=== PATIENT | female | born 1930 | race Caucasian/White ===

== ENCOUNTER 2018-06-16 12:11 | Emergency (ER) | payer OTHER ==
[~2018-06-16] VITALS: Ht 160 cm; Wt 49.2 kg
[~2018-06-16 12:11] MED LIST: HYDC25 PO; LISI5TAB3 PO; PROP20TA67 PO; PRT/20 PO
[2018-06-16 12:15] VITALS: TEMP 37; Ht 160 cm; Wt 49.2 kg
[2018-06-16] MEDS ORDERED: SODIUM CHLORIDE 0.9% 250ML 250 ML IV STA (12:35)
[2018-06-16] MEDS ORDERED: LORAZEPAM 2 MG/ML 1 ML VIAL IV STA (12:35)
[2018-06-16] MEDS ORDERED: SODIUM CHLORIDE 0.9% 1000ML 1,000 ML IV STA (12:35)
--- NOTE | 2018-06-16 12:43 | EMERGENCY ROOM VISIT NOTE ---
History Report prepared by Daja: Teresa Littlejohn Under the Supervision of: Dr. Krystle Ramirez M.D. First contact with patient: 12:27 Chief Complaint: ABDOMINAL PAIN Stated Complaint: STOMACH PAIN Nursing Triage Summary: Palpitation in mid abd, lightheadedness, "It's like a muscle moving around. It' s been going on for sometime". denies pain. pt reports feeling full after eating small amnts and increase in burping History of Present Illness The patient is a 87 year old female who presents to the Emergency Room with complaints of an intermittent "palpitation" in the middle of her abdomen yesterday. The patient denies any pain in her abdomen but states that this occasional "palpitation" is uncomfortable. The patient states that this has been going on for years but feels like it got worse yesterday. The patient states that she got lightheaded with this "palpitation". The patient denies any vomiting or diarrhea. The patient states that she has no blood in her bowel movements, blood in her urine, or blood from her vagina. The patient does state that she has burning with urination but states that she has vaginal dryness. The patient states that she ate this morning but did not eat last night. She states that she feels full as soon as she eats. The patient states that she had her gallbladder removed years ago. The patient also states that her about five months ago and she has been under a lot of stress recently. Source of History: patient Onset: yesterday Position: abdomen Quality: other ("palpitation" ) Timing: intermittent Associated Symptoms: + urinary symptoms (burning with urination ), No vomiting, No diarrhea Note: additional symptoms: lightheaded Review of Systems See HPI for pertinent positives & negatives. A total of 10 systems reviewed and were otherwise negative. Past Medical & Surgical Medical Problems: (1) History of - hypertension Social History Smoking Status: Never Smoker Alcohol Use: none Drug Use: none Marital Status: Housing Status: lives alone Occupation Status: retired Current/Historical Medications Scheduled Hydrochlorothiazide (Hctz), 25 MG PO DAILY Lisinopril (Lisinopril), 1 TAB PO DAILY Pantoprazole (Protonix), 40 MG PO q am Propranolol (Inderal), 40 MG PO BID Ranitidine Hcl (Zantac), 150 MG PO each evening Allergies Coded Allergies: No Known Allergies (Unverified , 06/16/18) Physical Exam Vital Signs Date Time Temp Pulse Resp B/P (MAP) Pulse Ox O2 Delivery O2 Flow Rate FiO2 06/16/18 16:15 70 20 137/72 98 Room Air 06/16/18 15:04 67 20 140/71 95 Room Air 06/16/18 13:33 57 18 156/75 98 Room Air 06/16/18 12:56 67 19 149/77 99 68 156/70 06/16/18 12:15 37.0 88 18 165/73 96 Room Air Physical Exam Vital signs reviewed. General: Tearful and anxious-appearing 87 year old female, in no significant distress. HEENT: No scleral icterus, PERRLA, neck supple. Atraumatic. Cardiovascular: Regular rate and rhythm, no extra sounds. Pulmonary: Clear to auscultation bilaterally, normal work of breathing. Abdomen: Soft, nontender, nondistended, positive bowel sounds. Musculoskeletal: Atraumatic, no peripheral edema. Neurologic: Patient awake alert and oriented x 3, full strength in all 4 extremities. Cranial nerves 2 through 12 grossly intact. Skin: Warm, dry, no rash Medical Decision & Procedures ER Provider Diagnostic Interpretation: Radiology results as stated below per my review and radiologist interpretation: ABDOMEN AND PELVIS CT WITH IV AND ORAL CONTRAST CT DOSE: 238.09 mGy.cm HISTORY: Acute epigastric abdominal pain epigastric pain TECHNIQUE: Multiaxial CT images of the abdomen and pelvis were performed following the use of intravenous and oral contrast. A dose lowering technique was utilized adhering to the principles of ALARA. COMPARISON STUDY: CT abdomen and pelvis 07/19/2009. FINDINGS: Mild subsegmental right basilar atelectasis. Mildly motion degraded exam without pneumatosis or pneumoperitoneum. Imaged inferior cardiac chambers are mildly enlarged. Gallbladder appears surgically absent. Hypodense 4 mm lesion of the inferior right hepatic lobe suggests probable hepatic cyst. Spleen, pancreas and adrenal glands are unremarkable. Kidneys are within normal limits with 9 mm cyst of the superior pole right kidney. Ureters are unremarkable. Decompressed bladder. Prior hysterectomy. No adnexal mass lesions. Moderate calcification of the aorta without aneurysm. IVC appears unremarkable. The portal vein appears patent. No pathologically enlarged lymph nodes identified. Small sliding-type hiatal hernia with mild wall thickening about the distal esophagus. Incidental note is made of a transient intussusception involving small bowel of the left mid pelvis, image 212 series 3 with no proximal dilation. Small bowel is otherwise within normal limits. No bowel obstruction. Moderate formed stool about the rectum and distal sigmoid. No bowel wall thickening. Terminal ileum is unremarkable. The appendix is not definitively seen, likely surgically absent. No ascites or mesenteric inflammatory changes. Soft tissues are within normal limits. Demineralized appearance of the bones. 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 Multilevel spondylitic spurring and facet arthropathy. IMPRESSION: 1. Small sliding-type hiatal hernia with mild circumferential wall thickening about the distal esophagus. Findings may reflect esophagitis in the appropriate clinical setting. This could be correlated with endoscopy if of further clinical concern. 2. No bowel obstruction or focal bowel wall thickening. 3. Moderate volume of formed stool about the distal sigmoid colon and rectum. 4. Cardiomegaly. 5. Additional findings as above. Electronically signed by: Tyrone Cochran M.D. 06/16/2018 3:27 PM Dictated Date/Time: 06/16/2018 3:19 PM Laboratory Results 06/16/18 12:32 Red Blood Count 4.67, Mean Corpuscular Volume 86.5, Mean Corpuscular Hemoglobin 30.0, Mean Corpuscular Hemoglobin Concent 34.7, Mean Platelet Volume 9.5, Neutrophils (%) (Auto) 58.5, Lymphocytes (%) (Auto) 33.1, Monocytes (%) (Auto) 4.8, Eosinophils (%) (Auto) 3.4, Basophils (%) (Auto) 0.2, Neutrophils # (Auto) 2.95, Lymphocytes # (Auto) 1.67, Monocytes # (Auto) 0.24, Eosinophils # (Auto) 0.17, Basophils # (Auto) 0.01 06/16/18 12:32 Test 06/16/18 12:32 06/16/18 15:10 White Blood Count 5.04 K/uL (4.8-10.8) Red Blood Count 4.67 M/uL (4.2-5.4) Hemoglobin 14.0 g/dL (12.0-16.0) Hematocrit 40.4 % (37-47) Mean Corpuscular Volume 86.5 fL (80-100) Mean Corpuscular Hemoglobin 30.0 pg (25-34) Mean Corpuscular Hemoglobin Concent 34.7 g/dl (32-36) Platelet Count 217 K/uL (130-400) Mean Platelet Volume 9.5 fL (7.4-10.4) Neutrophils (%) (Auto) 58.5 % Lymphocytes (%) (Auto) 33.1 % Monocytes (%) (Auto) 4.8 % Eosinophils (%) (Auto) 3.4 % Basophils (%) (Auto) 0.2 % Neutrophils # (Auto) 2.95 K/uL (1.4-6.5) Lymphocytes # (Auto) 1.67 K/uL (1.2-3.4) Monocytes # (Auto) 0.24 K/uL (0.11-0.59) Eosinophils # (Auto) 0.17 K/uL (0-0.5) Basophils # (Auto) 0.01 K/uL (0-0.2) RDW Standard Deviation 38.2 fL (36.4-46.3) RDW Coefficient of Variation 12.1 % (11.5-14.5) Immature Granulocyte % (Auto) 0.0 % Immature Granulocyte # (Auto) 0.00 K/uL (0.00-0.02) Anion Gap 11.0 mmol/L (3-11) Est Creatinine Clear Calc Drug Dose 43.8 ml/min Estimated GFR () 87.0 Estimated GFR (Non- 75.1 BUN/Creatinine Ratio 20.3 (10-20) Calcium Level 8.9 mg/dl (8.5-10.1) Magnesium Level 2.0 mg/dl (1.8-2.4) Total Bilirubin 1.0 mg/dl (0.2-1) Direct Bilirubin 0.2 mg/dl (0-0.2) Aspartate Amino Transf (AST/SGOT) 17 U/L (15-37) Alanine Aminotransferase (ALT/SGPT) 23 U/L (12-78) Alkaline Phosphatase 109 U/L (45-117) Total Protein 7.5 gm/dl (6.4-8.2) Albumin 3.7 gm/dl (3.4-5.0) Lipase 121 U/L (73-393) Urine Color YELLOW Urine Appearance CLEAR (CLEAR) Urine pH 5.5 (4.5-7.5) Urine Specific [place] 1.011 (1.000-1.030) Urine Protein NEG (NEG) Urine Glucose (UA) NEG (NEG) Urine Ketones NEG (NEG) Urine Occult Blood NEG (NEG) Urine Nitrite NEG (NEG) Urine Bilirubin NEG (NEG) Urine Urobilinogen NEG (NEG) Urine Leukocyte Esterase NEG (NEG) Laboratory results per my review. Medications Administered Medications (Trade) Dose Ordered Sig/Ricardo Route Start Time Stop Time Status Last Admin Dose Admin Sodium Chloride 250 ml @ 999 mls/hr Q16M STAT IV 06/16/18 12:35 06/16/18 12:50 DC 06/16/18 12:54 999 MLS/HR Sodium Chloride 1,000 ml @ 125 mls/hr Q8H STAT IV 06/16/18 12:35 06/16/18 18:02 DC 06/16/18 12:54 125 MLS/HR Lorazepam (Ativan Inj) 0.5 mg NOW STAT IV 06/16/18 12:35 06/16/18 12:42 DC 06/16/18 12:54 0.5 MG Pantoprazole Sodium (Protonix Tab) 40 mg NOW STAT PO 06/16/18 16:42 06/16/18 16:43 DC 06/16/18 16:50 40 MG Ranitidine HCl (zANTac TAB) 150 mg NOW ONCE PO 06/16/18 16:45 06/16/18 16:46 DC 06/16/18 16:50 150 MG ECG Per My Interpretation Indication: abdominal pain Rate (beats per minute): 76 Rhythm: normal sinus Findings: no acute ischemic change, left axis deviation, other (Premature supraventricular complexes, previous inferior and anterior infarct) ED Course 1230: Past medical records reviewed. The patient was evaluated in room C8. A complete history and physical examination was performed. 1235: Ordered Lorazepam 0.5 mg IV, Sodium Chloride 1000 ml @ 125 mls/hr IV, and Sodium Chloride 250 ml @ 999 mls/hr IV. 1642: Ordered Protonix Tab 40 mg PO. 1645: Ordered Zantac Tab 150 mg PO. 1650: Upon reevaluation, the patient appeared to have improvement of her symptoms. I discussed findings with her. She verbalized agreement of the treatment plan. She was discharged home. Medical Decision Differential diagnosis: Etiologies such as appendicitis, diverticulitis, PUD, biliary pathology, UTI, pancreatitis, obstruction, mesenteric ischemia, aortic pathology, infections, inflammatory bowel disease, renal colic, as well as others were entertained. This patient was evaluated and appeared to be in no significant distress. IV access was obtained and laboratory work was drawn. The patient was hydrated with normal saline solution. Patient's EKG reveals left axis deviation, no evidence of acute ischemia. Patient's laboratory work is fairly unrevealing. CT scan abdomen pelvis was performed and is significant for a small hiatal hernia and distal esophageal thickening. Patient was placed on p.o. Protonix and Zantac as needed. Case management met with the patient regarding her multiple social stressors given her recent spousal loss and difficulties with her son who lives in [place]. She is felt to have the resources that are needed particularly to supportive friend/neighbor's. Patient was advised to maintain a bland diet and drink plenty of clear fluids. She will follow-up with her PCP this week for reevaluation and return to the ED for worsening of symptoms or any medical concerns. Medication Reconcilliation Current Medication List: was personally reviewed by me Blood Pressure Screening Patient's blood pressure: Normal blood pressure Impression Primary Impression: Esophagitis with gastritis Additional Impression: Hypokalemia Scribe Attestation The scribe's documentation has been prepared under my direction and personally reviewed by me in its entirety. I confirm that the note above accurately reflects all work, treatment, procedures, and medical decision making performed by me. Departure Information Dispostion Home / Self-Care Prescriptions Pantoprazole (Protonix) 40 Mg Tab 40 MG PO q am, #30 TAB Prov: Krystle Ramirez M.D. 06/16/18 Ranitidine Hcl (ZANTAC) 150 Mg Tab 150 MG PO each evening, #30 TAB Prov: Krystle Ramirez M.D. 06/16/18 Referrals No Doctor, Assigned (PCP) Forms HOME CARE DOCUMENTATION FORM, IMPORTANT VISIT INFORMATION Patient Instructions [facility] Additional Instructions Diagnosis: Gastritis/esophagitis, hypokalemia Protonix 40 mg once daily Zantac 150 mg each evening. Eat a higher potassium diet, at least one banana daily. Follow-up with your primary care physician as scheduled in mid June or sooner for any medical issues. Please discuss your issues with anxiety/ depression and grief. Return to the emergency department for worsening of symptoms or any medical concerns. Problem Qualifiers
[2018-06-16] MEDS ORDERED: OPTIRAY 320 IV PRN (12:45)
[2018-06-16 12:53] LABS: BASO % 0.2 %; BASO ABS # 0.01 K/uL (0-0.2); EOS % 3.4 %; EOS ABS # 0.17 K/uL (0-0.5); HEMATOCRIT 40.4 % (37-47); LYMPH % 33.1 %; LYMPH ABS # 1.67 K/uL (1.2-3.4); MEAN CELL VOLUME 86.5 fL (80-100); MEAN CORPUSCULAR HGB CONC 34.7 g/dl (32-36); MEAN PLATELET VOLUME 9.5 fL (7.4-10.4); MONO % 4.8 %; MONO ABS # 0.24 K/uL (0.11-0.59); NEUT % 58.5 %; NEUT ABS # 2.95 K/uL (1.4-6.5); PLATELET COUNT 217 K/uL (130-400); RED CELL DISTRIBUTION WIDTH CV 12.1 % (11.5-14.5); RED CELL DISTRIBUTION WIDTH SD 38.2 fL (36.4-46.3); WHITE BLOOD COUNT 5.04 K/uL (4.8-10.8)
[2018-06-16 13:11] LABS: ALBUMIN 3.7 gm/dl (3.4-5.0); CALCIUM 8.9 mg/dl (8.5-10.1); CREATININE 0.73 mg/dl (0.60-1.20); POTASSIUM 3.2 mmol/L (3.5-5.1); TOTAL PROTEIN 7.5 gm/dl (6.4-8.2)
[2018-06-16] MEDS ORDERED: HYDR25TA4 PO (13:16)
[2018-06-16] MEDS ORDERED: LISI-730 PO (13:16)
--- NOTE | 2018-06-16 15:28 | DIAGNOSTIC IMAGING REPORT ---
ABDOMEN AND PELVIS CT WITH IV AND ORAL CONTRAST CT DOSE: 238.09 mGy.cm HISTORY: Acute epigastric abdominal pain epigastric pain TECHNIQUE: Multiaxial CT images of the abdomen and pelvis were performed following the use of intravenous and oral contrast. A dose lowering technique was utilized adhering to the principles of ALARA. COMPARISON STUDY: CT abdomen and pelvis 07/19/2009. FINDINGS: Mild subsegmental right basilar atelectasis. Mildly motion degraded exam without pneumatosis or pneumoperitoneum. Imaged inferior cardiac chambers are mildly enlarged. Gallbladder appears surgically absent. Hypodense 4 mm lesion of the inferior right hepatic lobe suggests probable hepatic cyst. Spleen, pancreas and adrenal glands are unremarkable. Kidneys are within normal limits with 9 mm cyst of the superior pole right kidney. Ureters are unremarkable. Decompressed bladder. Prior hysterectomy. No adnexal mass lesions. Moderate calcification of the aorta without aneurysm. IVC appears unremarkable. The portal vein appears patent. No pathologically enlarged lymph nodes identified. Small sliding-type hiatal hernia with mild wall thickening about the distal esophagus. Incidental note is made of a transient intussusception involving small bowel of the left mid pelvis, image 212 series 3 with no proximal dilation. Small bowel is otherwise within normal limits. No bowel obstruction. Moderate formed stool about the rectum and distal sigmoid. No bowel wall thickening. Terminal ileum is unremarkable. The appendix is not definitively seen, likely surgically absent. No ascites or mesenteric inflammatory changes. Soft tissues are within normal limits. Demineralized appearance of the bones. 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 Multilevel spondylitic spurring and facet arthropathy. IMPRESSION: 1. Small sliding-type hiatal hernia with mild circumferential wall thickening about the distal esophagus. Findings may reflect esophagitis in the appropriate clinical setting. This could be correlated with endoscopy if of further clinical concern. 2. No bowel obstruction or focal bowel wall thickening. 3. Moderate volume of formed stool about the distal sigmoid colon and rectum. 4. Cardiomegaly. 5. Additional findings as above. Electronically signed by: Tyrone Cochran M.D. 06/16/2018 3:27 PM Dictated Date/Time: 06/16/2018 3:19 PM
[2018-06-16 16:15] VITALS: BP 137/72; PULSE 70; O2SAT 98
[2018-06-16] MEDS ORDERED: PANT40TA PO (16:22)
[2018-06-16] MEDS ORDERED: RANI150T3 PO (16:22)
[2018-06-16] MEDS ORDERED: PANTOprazole SOD 40 MG TAB PO STA (16:42)
[2018-06-16] MEDS ORDERED: RANITIDINE HCL 150 MG TAB PO ONE (16:45)
== END 2018-06-16 17:05 | disposition home or self-care (01) ==
LOC: C.EDB 12:14 → C.EDC 17:05
DX: K20.9 Esophagitis, unspecified (principal); K29.70 Gastritis, unspecified, without bleeding; E87.6 Hypokalemia; I10 Essential (primary) hypertension; Z79.899 Other long term (current) drug therapy

== ENCOUNTER 2020-02-02 13:03 | Inpatient (IN) ==
[2020-02-02] MEDS ORDERED: STAT IV Infusion **Titration per Protocol STA (13:39)
[2020-02-02] MEDS ORDERED: Heparin IV Low Dose *NO* Bolus ONE (13:39)
[2020-02-02] MEDS ORDERED: dilTIAZem HCl 5 MG/ML 5 ML VIAL IV STA (13:39)
[2020-02-02] MEDS ORDERED: dilTIAZem HCL 125 MG in DEXTROSE 5% 100 ML IV SCH (13:45)
--- NOTE | 2020-02-02 13:45 | Emergency Department Note ---
History of Present Illness General Chief complaint: Cardiac Assessment Stated complaint: CHF,ATRIAL FIB Time Seen by Provider: 02/02/20 13:17 Source: patient and friends Mode of arrival: ambulatory Limitations: no limitations History of Present Illness Provider complaint: Palpitations, shortness of breath Onset (ago): day(s) 10 Location: chest and abdomen Radiation: non-radiation Maximum Pain Intensity: 0 Current Pain Intensity: 0 Exacerbated By: + movement Associated symptoms: + loss of appetite, + shortness of breath, + weakness and + other; no chest pain, no headaches, no nausea/vomiting and no syncope This is an 89-year-old female with no significant prior cardiac history who presents after 10 to 14 days of intermittent palpitations, worsening shortness of breath, and lower extremity edema. Patient saw her family doctor due to her symptoms who performed an evaluation in the office and referred the patient to the emergency room. There is a friend at bedside who helps to care for the patient who states she has never had any dysrhythmia or palpitations prior. Patient does not routinely follow with cardiology. Patient denies any recent illness or change in medications. No travel or known sick contacts. Patient states she initially noticed palpitations with exertion 2 weeks ago, then began to notice they were happening more frequently and were lasting longer and she was having accompanying shortness of breath. The friend then noticed in the last several days she has developed worsening lower extremity edema, now up to the level of her knee. Friend also feels she has increased abdominal distention also. Patient denies headache, chest pain, abdominal pain. States she does feel mild abdominal distention which she attributed to gas. Patient stated her stools are mildly yellow, denies black or bloody stools. States no dysuria, urgency or frequency, however states her urine appears slightly darker compared to normal. Friend also relays that patient has had some recent thyroid dysfunction that was seen during her last checkup with routine blood work approximately 8 months ago. Patient had also been found to have a thyroid nodule however she canceled the appointment for a needle aspiration and biopsy. Pt has an appointment with endocrinology in February. Additional fax records from the patient's office visit sent by Dr. Lowe. Pt seen during a time of high acuity and national emergency pandemic while wearing PPE. Home Medications Home Medications Medication Instructions Recorded Confirmed Type cholecalciferol (vitamin D3) 125 5,000 units PO DAILY 12/28/19 02/02/20 History mcg (5,000 unit) capsule lisinopril 5 mg tablet 5 mg PO DAILY 12/28/19 02/02/20 History propranolol 40 mg tablet 40 mg PO BID 12/28/19 02/02/20 History famotidine 20 mg PO HS 02/02/20 02/02/20 History multivitamin 1 tab PO DAILY 02/02/20 02/02/20 History pantoprazole 40 mg PO DAILY 02/02/20 02/02/20 History Allergies Allergy/AdvReac Type Severity Reaction Status Date / Time No Known Allergies Allergy Unverified 02/02/20 13:25 Past Med/Surg History Medical History Allergic rhinitis Conductive hearing loss Family history non-contributory GERD (gastroesophageal reflux disease) Hemorrhoids HTN (hypertension) Irritable bowel Post-menopausal atrophic vaginitis Skin cancer Thyroid dysfunction Surgical History H/O: hysterectomy total with BSO History of cataract surgery History of cystoscopy Hx of cholecystectomy Family History Other No significant family history Social History Preferred Language: Danish Communication Ability: Effective Hearing Ability: Hard of Hearing Beliefs That Will Affect Care: Restorationist Restorationist Beliefs: CHRISTIANITY marital status: / Current Living Situation: Alone Other Information That Helps Us Care for You: No Feels Safe at Home: Yes Safety Concerns: Feels Safe At This Time Smoking Status: Never smoker Hx Alcohol Use: Yes Alcohol type: wine Hx Substance Use: No Review of Systems See HPI for pertinent positives & negatives. and A total of 10 systems reviewed and were otherwise negative Physical Exam Vital Signs Vital Signs - 24 hr 02/02/20 13:10 Temperature 36.8 C Temperature Source Oral Pulse Rate 126 H Respiratory Rate 20 Blood Pressure 119/74 Blood Pressure Mean 89 Pulse Oximetry 96 Oxygen Delivery Method Room Air Sepsis Recent Fever Within 48 Hours No Sepsis New/Unexplained Change in Mental Status No Sepsis Action Taken by Nursing No Action Required GENERAL: alert, well appearing, well nourished, no distress, non-toxic EYE EXAM: normal conjunctiva, PERRLA and EOM's grossly intact, no proptosis OROPHARYNX: no exudate, no erythema, lips, buccal mucosa, and tongue normal and mucous membranes are moist, poor dentition NECK: supple, no nuchal rigidity, no adenopathy, non-tender, no jvd LUNGS: Clear but decreased to auscultation. Normal chest wall mechanics, no w/r/r HEART: no murmurs, S1 normal and S2 normal, heart rate fast and irregular, and a rapid atrial fibrillation on telemetry ABDOMEN: abdomen soft, non-tender, normo-active bowel sounds, no masses, no rebound or guarding. BACK: Back is symmetrical on inspection and there is no deformity, no midline tenderness, no CVA tenderness. SKIN: no rashes and no bruising, no petechiae UPPER EXTREMITIES: upper extremities are grossly normal. FROM, nml pulses b/l. LOWER EXTREMITIES: 2+ pitting edema up to the knees bilaterally. FROM, nml pulses b/l. NEURO EXAM: Normal sensorium, cranial nerves II-XII grossly intact, normal speech, no gross weakness of arms, no gross weakness of legs. Gross sensation intact. Course Course 1425: After Cardizem bolus of 10 mg IV, patient's heart rate came down to the 80s and 90s per nursing. Blood pressure did drop slightly however remained stable. Due to patient's likely sensitivity and advanced age with this, we will start her Cardizem drip at 2.5 instead of 5. 1455: Patient's Cardizem drip up to 5 as her rate has now been persistently 110- 120. 1540: Patient states she is feeling improved. Heart rate now 112. Updated on all results. 1549: [facility] Administered Medications Famotidine (Pepcid) 20 mg PO HS KAVIN Stop: 03/03/20 20:59 Last Admin: 02/02/20 20:10 Dose: 20 mg Documented by: [id number] Heparin Sodium/Dextrose (Heparin Sodium/Dextrose) 25,000 units in 500 mls @ 15 mls/hr IV .Q24H KAVIN; Protocol Stop: 03/03/20 13:44 Last Titration: 02/03/20 06:57 Dose: 750 units/hr, 15 mls/hr Documented by: [id number] Cosigned by: [id number] Titration: 02/02/20 20:50 Dose: 750 units/hr, 15 mls/hr Documented by: [id number] Cosigned by: [id number] Titration: 02/02/20 18:54 Dose: 650 units/hr, 13 mls/hr Documented by: [id number] Cosigned by: [id number] Admin: 02/02/20 14:16 Dose: 650 units/hr, 13 mls/hr Documented by: [id number] Cosigned by: [id number] Furosemide 20 mg/ Syringe 2 mls @ 4 mls/min IV BID@0900,1700 [facility] Stop: 03/03/20 20:59 Last Admin: 02/03/20 16:46 Dose: 4 mls/min Documented by: [id number] Admin: 02/03/20 07:56 Dose: 4 mls/min Documented by: [id number] Admin: 02/02/20 20:10 Dose: 4 mls/min Documented by: [id number] Diltiazem HCl 125 mg/ Dextrose 125 mls @ 5 mls/hr IV .Q24H [facility]; Protocol Stop: 03/04/20 09:14 Last Admin: 02/03/20 10:02 Dose: 5 mg/hr, 5 mls/hr Documented by: [id number] Cosigned by: [id number] Methimazole (Tapazole) 15 mg PO BID [facility] Stop: 03/03/20 20:59 Last Admin: 02/03/20 07:56 Dose: 15 mg Documented by: [id number] Admin: 02/02/20 20:10 Dose: 15 mg Documented by: [id number] Metoprolol Tartrate (Lopressor) 5 mg IV Q6 PRN PRN Reason: Tachycardia Stop: 03/03/20 18:54 Last Admin: 02/03/20 09:37 Dose: 5 mg Documented by: [id number] Metoprolol Tartrate (Lopressor) 50 mg PO TID [facility] Stop: 03/04/20 13:59 Last Admin: 02/03/20 14:40 Dose: 50 mg Documented by: [id number] Multivitamins (Multivitamin Tab) 1 tab PO DAILY [facility] Stop: 03/04/20 08:59 Last Admin: 02/03/20 07:57 Dose: 1 tab Documented by: [id number] Pantoprazole Sodium (Protonix) 40 mg PO DAILY KAVIN Stop: 03/04/20 08:59 Last Admin: 02/03/20 07:57 Dose: 40 mg Documented by: [id number] Potassium Chloride (Klor-Con M20) 40 meq PO QAM KAVIN Stop: 03/04/20 10:59 Last Admin: 02/03/20 11:03 Dose: 40 meq Documented by: [id number] Vitamin D (Vitamin D3) 1,000 units PO DAILY KAVIN Stop: 03/04/20 08:59 Last Admin: 02/03/20 07:57 Dose: 1,000 units Documented by: [id number] Discontinued Medications Diltiazem HCl (Cardizem) 10 mg IV NOW STA Stop: 02/02/20 13:40 Last Admin: 02/02/20 14:17 Dose: 10 mg Documented by: [id number] Cosigned by: [id number] Furosemide (Lasix) 20 mg IV NOW STA Stop: 02/02/20 15:41 Last Admin: 02/02/20 17:03 Dose: 20 mg Documented by: [id number] Heparin Sodium/Dextrose () 1 ea N/A ONE ONE; Protocol Stop: 02/02/20 13:40 Last Admin: 02/02/20 14:39 Dose: Not Given Documented by: [id number] Diltiazem HCl 125 mg/ Dextrose 125 mls @ 5 mls/hr IV .Q24H KAVIN; Protocol Stop: 03/03/20 13:44 Last Titration: 02/02/20 19:48 Dose: 0 mg/hr, 0 mls/hr Documented by: [id number] Cosigned by: [id number] Titration: 02/02/20 18:54 Dose: 7.5 mg/hr, 7.5 mls/hr Documented by: [id number] Cosigned by: [id number] Titration: 02/02/20 15:28 Dose: 7.5 mg/hr, 7.5 mls/hr Documented by: [id number] Cosigned by: [id number] Titration: 02/02/20 14:47 Dose: 5 mg/hr, 5 mls/hr Documented by: [id number] Cosigned by: [id number] Admin: 02/02/20 14:15 Dose: 2.5 mg/hr, 2.5 mls/hr Documented by: [id number] Cosigned by: [id number] Heparin Sodium (Porcine) 4,000 (units/ Syringe) 4 mls @ 10 mls/min IV TODAY@2100 ONE Stop: 02/02/20 21:01 Last Admin: 02/02/20 20:50 Dose: 10 mls/min Documented by: [id number] Cosigned by: [id number] Potassium Chloride (K Robson / Wtr) 10 meq in 100 mls @ 100 mls/hr IV Q1H KAVIN Stop: 02/03/20 10:29 Last Infusion: 02/03/20 09:05 Dose: 0 mls/hr Documented by: [id number] Admin: 02/03/20 09:04 Dose: Not Given Documented by: [id number] Admin: 02/03/20 08:46 Dose: 100 mls/hr Documented by: [id number] Magnesium Sulfate/Dextrose (Magnesium Sulfate / D5w) 1 gm in 100 mls @ 100 mls/hr IV ONE ONE Stop: 02/03/20 10:04 Last Infusion: 02/03/20 10:50 Dose: 0 mls/hr Documented by: [id number] Admin: 02/03/20 09:49 Dose: 100 mls/hr Documented by: [id number] Ioversol (Optiray 320 125ml) 119 ml IV ONCE PRN PRN Reason: Interaction Checking Stop: 02/06/20 15:02 Last Admin: 02/02/20 15:04 Dose: 119 ml Documented by: [id number] Metoprolol Tartrate (Lopressor) 50 mg PO NOW STA Stop: 02/02/20 16:30 Last Admin: 02/02/20 17:32 Dose: 50 mg Documented by: [id number] Metoprolol Tartrate (Lopressor) 50 mg PO BID KAVIN Stop: 02/09/20 08:59 Last Admin: 02/03/20 07:57 Dose: 50 mg Documented by: [id number] Miscellaneous () 1 ea N/A NOW STA Stop: 02/02/20 13:40 Last Admin: 02/02/20 14:39 Dose: Not Given Documented by: [id number] Potassium Chloride (Klor-Con M20) 40 meq PO NOW STA Stop: 02/03/20 07:36 Last Admin: 02/03/20 07:55 Dose: 40 meq Documented by: [id number] Potassium Chloride (Noemi Ciel Elix) 40 meq PO NOW STA Stop: 02/03/20 10:29 Last Admin: 02/03/20 11:03 Dose: 40 meq Documented by: [id number] Propranolol HCl (Inderal) 40 mg PO BID KAVIN Stop: 03/03/20 20:59 Last Admin: 02/03/20 07:56 Dose: 40 mg Documented by: [id number] Admin: 02/02/20 20:11 Dose: 40 mg Documented by: [id number] Critical Care Time Critical Care Time: Yes Total Critical Care Time: 42 Critical care of 42 min performed to assess and manage high likelihood of life- threatening dysrhythmia, involving labs/imaging and treatment performed with assessment to evaluation atrial fibrillation with RVR and CHF diagnosis with frequent reassessment. This time includes bedside time, treatment discussions with patient/family/consultants, documentation time and excludes procedure time. Medical Decision Making Differential Diagnosis Differential diagnosis includes etiologies such as premature contractions, electrolyte abnormality, cardiac dysrhythmia, thyroid dysfunction, pulmonary embolism, infection, gastrointestinal, pneumonia, bronchitis, COPD/Asthma exacerbation, pneumothorax, pulmonary embolism, congestive heart failure, acute coronary syndrome Medical Records Attestation: I reviewed the patient's medical records. Home Medications Current Medication List: was personally reviewed by me Laboratory Data Attestation: I reviewed the patient's lab results. Result diagrams: 02/03/20 02:57 02/03/20 02:57 Lab Results 02/02/20 02/02/20 02/02/20 Range/Units 13:25 13:25 13:25 WBC 8.06 (4.8-10.8) K/uL RBC 4.33 (4.2-5.4) M/uL Hgb 12.9 (12.0-16.0) g/dL Hct 39.0 (37-47) % MCV 90.1 (80-100) fL MCH 29.8 (25-34) pg MCHC 33.1 (32-36) g/dL RDW Std Deviation 43.5 (36.4-46.3) fL RDW Coeff of Angel 13.2 (11.5-14.5) % Plt Count 198 (130-400) K/uL MPV 10.0 (7.4-10.4) fL Immature Gran % (Auto) 0.2 % Neut % (Auto) 72.8 % Lymph % (Auto) 19.2 % Churchill % (Auto) 6.5 % Eos % (Auto) 1.2 % Baso % (Auto) 0.1 % Immature Gran # (Auto) 0.02 (0.00-0.02) K/uL Neut # (Auto) 5.86 (1.4-6.5) K/uL Lymph # (Auto) 1.55 (1.2-3.4) K/uL Churchill # (Auto) 0.52 (0.11-0.59) K/uL Eos # (Auto) 0.10 (0-0.5) K/uL Baso # (Auto) 0.01 (0-0.2) K/uL D-Dimer 710 H* (0-500) ug/L FEU Sodium 140 (136-145) mmol/L Potassium 4.1 (3.5-5.1) mmol/L Chloride 107 (98-107) mmol/L Carbon Dioxide 28 (21-32) mmol/L Anion Gap 5.0 (3-11) BUN 12 (7-18) mg/dl Creatinine 0.74 (0.6-1.2) mg/dl Est Cr Clr Drug Dosing 45.7 ml/min Est GFR ( Amer) 84.4 Est GFR (Non-Af Amer) 72.8 BUN/Creatinine Ratio 16.3 (10-20) Glucose 139 H (70-99) mg/dl Calcium 9.0 (8.5-10.1) mg/dl Magnesium 1.9 (1.8-2.4) mg/dl Total Bilirubin 1.1 H (0.2-1) mg/dl AST 75 H (15-37) U/L ALT 122 H (12-78) U/L Alkaline Phosphatase 113 (45-117) U/L Troponin I < 0.015 (0-0.045) ng/ml NT-Pro-B Natriuret Pep 3351 H (0-1800) pg/ml Total Protein 6.8 (6.4-8.2) gm/dl Albumin 3.4 (3.4-5.0) gm/dl Globulin 3.4 (2.5-4.0) gm/dl Albumin/Globulin Ratio 1.0 (0.9-2) Lipase 129 (73-393) U/L TSH < 0.005 L (0.300-4.500) uIu/ml Free T4 2.69 H (0.8-1.6) ng/dl Imaging Data Radiologist's Impression: SINGLE VIEW CHEST CLINICAL HISTORY: Dyspnea. Atrial fibrillation. FINDINGS: An AP, portable, upright chest radiograph is correlated with chest CT dated 07/19/2019. The heart is mildly enlarged. The pulmonary vasculature is noncongested. Chronic interstitial thickening is similar to previous. There are trace pleural effusions with patchy bibasilar airspace consolidation. No pneumothorax is seen. The skeletal structures are osteopenic. The bony thorax is grossly intact. IMPRESSION: 1. Cardiomegaly without radiographic evidence of congestive failure. 2. There are trace pleural effusions with patchy bibasilar airspace opacities. This could represent scarring/atelectasis versus an infectious/inflammatory pneumonitis. Clinical correlation will be required and radiographic follow-up to resolution is recommended. ACT 112: Negative or not required by law. Electronically signed by: Merritt Ladd M.D. 02/02/2020 1:[address] ANGIOGRAM OF THE CHEST CLINICAL HISTORY: Dyspnea. Lower extremity edema. COMPARISON STUDY: Chest x-ray dated 02/02/2020. Chest CT dated 07/19/2009. TECHNIQUE: Following the IV administration of 119 cc of Optiray 320, CT angiogram of the chest was performed from the upper abdomen to the thoracic inlet utilizing the pulmonary embolus protocol. Images are reviewed in the axial, sagittal, and coronal planes. 3-D MIPS images are created and assessed. IV contrast was administered without complication. A dose lowering technique was utilized adhering to the principles of ALARA. CT DOSE: 269.93 mGy.cm FINDINGS: Thyroid: Findings are consistent with multinodular goiter. Coarse calcifications are noted in the left lobe. Thoracic aorta: There is aneurysmal dilatation of the ascending thoracic aorta which measures up to 4.3 cm. The remainder of the thoracic aorta is normal in caliber, and the arch demonstrates standard 3-vessel anatomy. The thoracic aorta is not well opacified. Pulmonary vasculature: The pulmonary trunk is dilated measuring up to 3.2 cm in diameter. This suggests pulmonary artery hypertension. There are no filling defects identified in main, lobar, or segmental pulmonary branches to suggest pulmonary embolus. Heart: The heart is enlarged and without pericardial effusion. Lungs and pleural spaces: There are small to moderate pleural effusions with bibasilar atelectasis. No airspace consolidation is seen typical for pneumonia. There is diffuse intralobular septal thickening as well as peribronchial thickening in the lower lobes. The trachea and central airways are clear. A calcified granuloma is noted in the right upper lobe. 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 Mediastinum: There is no mediastinal lymphadenopathy. Radha: Clear. Axillae: There is no axillary lymphadenopathy. Upper abdomen: Reflux of contrast into the IVC and hepatic veins suggests cardiac dysfunction. Partially visualized upper abdominal viscera is within normal limits. Skeletal structures: The skeletal structures are osteopenic. Mild degenerative change is noted in the shoulders and thoracic spine. No lytic or blastic bony lesions are seen. IMPRESSION: 1. There is no evidence of pulmonary embolus in the main, lobar, or segmental pulmonary arteries. 2. Cardiomegaly with evidence of congestive failure. 3. Small to moderate pleural effusions with associated atelectasis. 4. 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 5. Additional findings as above. ACT 112: Negative or not required by law. Electronically signed by: Merritt Ladd M.D. 02/02/2020 3:33 PM MDM Narrative Pt presenting from her PCP's office with finding of new onset atrial fibrillation with RVR and exam findings suggestive of CHF. Given symptoms have been going on for 10-14 days, pt not a candidate for electrical cardioversion in the ER. Given other risk factors for cva, and need for additional evaluation of her new dysrhythmia and apparent thyroid dysfunction, I discussed additional inpatient evaluation/mgmt with the patient and she was in agreement. Pt with improvement on cardizem which was carefully titrated and started on heparin drip for anticoagulation. No evidence of infection. Likely dysrhythmia pushed her into chf. I do not suspect thyroid storm. Impression & Plan Atrial fibrillation with RVR, Thyroid dysfunction, CHF (congestive heart failure), Pleural effusion Discharge Plan Visit Data *Final* Discharge Date/Time: 02/02/20 17:40 Chief Complaint: Cardiac Assessment Stated Complaint: CHF,ATRIAL FIB ED Provider: Johanne Duran Discharge Problem: Atrial fibrillation with RVR, Thyroid dysfunction, CHF (congestive heart failure), Pleural effusion Patient Disposition: Admitted As Inpatient Discharge Instructions Interventions: ED Discharge Assessment Last Done: 02/02/20 17:40 Discharge Problem: CHF (congestive heart failure) Qualifiers: Heart failure type: unspecified Heart failure chronicity: acute Qualified Code(s): I50.9 - Heart failure, unspecified
[2020-02-02 13:55] LABS: Basophils # (auto) 0.01 K/uL (0-0.2); Basophils % (auto) 0.1 %; Eosinophils % (auto) 1.2 %; Hemoglobin 12.9 g/dL (12.0-16.0); Immature Granulocytes # (auto) 0.02 K/uL (0.00-0.02); Immature Granulocytes % (auto) 0.2 %; Lymphocytes # (auto) 1.55 K/uL (1.2-3.4); Lymphocytes % (auto) 19.2 %; Mean Corpuscular Hemoglobin 29.8 pg (25-34); Mean Corpuscular Hgb Conc 33.1 g/dL (32-36); Mean Corpuscular Volume 90.1 fL (80-100); Monocytes # (auto) 0.52 K/uL (0.11-0.59); Monocytes % (auto) 6.5 %; Neutrophils # (auto) 5.86 K/uL (1.4-6.5); Neutrophils % (auto) 72.8 %; Platelet Count 198 K/uL (130-400); RDW Coefficient of Variation 13.2 % (11.5-14.5); RDW Standard Deviation 43.5 fL (36.4-46.3); Red Blood Count 4.33 M/uL (4.2-5.4); White Blood Count 8.06 K/uL (4.8-10.8)
--- NOTE | 2020-02-02 14:01 | XRay Report ---
SINGLE VIEW CHEST CLINICAL HISTORY: Dyspnea. Atrial fibrillation. FINDINGS: An AP, portable, upright chest radiograph is correlated with chest CT dated 07/19/2019. The heart is mildly enlarged. The pulmonary vasculature is noncongested. Chronic interstitial thickening is similar to previous. There are trace pleural effusions with patchy bibasilar airspace consolidatio n. No pneumothorax is seen. The skeletal structures are osteopenic. The bony thorax is grossly intact . IMPRESSION: 1. Cardiomegaly without radiographic evidence of congestive failure. 2. There are trace pleural effusions with patchy bibasilar airspace opacities. This could represent s carring/atelectasis versus an infectious/inflammatory pneumonitis. Clinical correlation will be requi red and radiographic follow-up to resolution is recommended. ACT 112: Negative or not required by law. Electronically signed by: Merritt Ladd M.D. 02/02/2020 1:59 PM
--- NOTE | 2020-02-02 14:06 | Electrocardiogram Report ---
Test Reason : Blood Pressure : / mmHG Vent. Rate : 146 BPM Atrial Rate : 131 BPM P-R Int : 000 ms QRS Dur : 096 ms QT Int : 324 ms P-R-T Axes : 000 -37 092 degrees QTc Int : 504 ms Poor data quality, interpretation may be adversely affected Atrial fibrillation with rapid ventricular response Left axis deviation Cannot rule out Anterior infarct (cited on or before 16-JUN-2018) Nonspecific ST and T wave abnormality Abnormal ECG When compared with ECG of 16-JUN-2018 12:25, Atrial fibrillation has replaced Sinus rhythm HR has increased by 70 bpm Confirmed by Carlos Wilks ([id number]) on 02/02/2020 2:06:06 PM Referred By: Confirmed By:Carlos Wilks
[2020-02-02 14:09] LABS: Alanine Aminotransferase 122 U/L (12-78); Albumin Level 3.4 gm/dl (3.4-5.0); Aspartate Aminotransferase 75 U/L (15-37); BUN Creatinine Ratio 16.3 (10-20); Blood Urea Nitrogen 12 mg/dl (7-18); Carbon Dioxide 28 mmol/L (21-32); Chloride 107 mmol/L (98-107); Creatinine Clr Calc Pharmacy 45.7 ml/min; D Dimer 710 ug/L FEU (0-500); Est GFR (African American) 84.4; Est GFR (Non-African American) 72.8; Glucose 139 mg/dl (70-99); Lipase 129 U/L (73-393); Magnesium 1.9 mg/dl (1.8-2.4); Potassium 4.1 mmol/L (3.5-5.1); Sodium 140 mmol/L (136-145)
[2020-02-02] MEDS: HEPARIN SODIUM/DEXTROSE 25,000 UNITS/500 ML BAG IV SCH (14:16)
[2020-02-02 14:20] LABS: Alkaline Phosphatase 113 U/L (45-117); Bilirubin,Total 1.1 mg/dl (0.2-1); Globulin 3.4 gm/dl (2.5-4.0); NT Pro B Type Natriuretic Pept 3351 pg/ml (0-1800); Thyroid Stimulating Hormone < 0.005 uIu/ml (0.300-4.500); Total Protein 6.8 gm/dl (6.4-8.2); Troponin I < 0.015 ng/ml (0-0.045)
[2020-02-02 14:33] LABS: T4 Free Thyroxine 2.69 ng/dl (0.8-1.6)
[2020-02-02] MEDS ORDERED: OPTIRAY 320 125ml IV PRN (15:03)
--- NOTE | 2020-02-02 15:35 | CT Scan Report ---
CT ANGIOGRAM OF THE CHEST CLINICAL HISTORY: Dyspnea. Lower extremity edema. COMPARISON STUDY: Chest x-ray dated 02/02/2020. Chest CT dated 07/19/2009. TECHNIQUE: Following the IV administration of 119 cc of Optiray 320, CT angiogram of the chest was pe rformed from the upper abdomen to the thoracic inlet utilizing the pulmonary embolus protocol. Images are reviewed in the axial, sagittal, and coronal planes. 3-D MIPS images are created and assessed. I V contrast was administered without complication. A dose lowering technique was utilized adhering to the principles of ALARA. CT DOSE: 269.93 mGy.cm FINDINGS: Thyroid: Findings are consistent with multinodular goiter. Coarse calcifications are noted in the lef t lobe. Thoracic aorta: There is aneurysmal dilatation of the ascending thoracic aorta which measures up to 4 .3 cm. The remainder of the thoracic aorta is normal in caliber, and the arch demonstrates standard 3 -vessel anatomy. The thoracic aorta is not well opacified. Pulmonary vasculature: The pulmonary trunk is dilated measuring up to 3.2 cm in diameter. This sugges ts pulmonary artery hypertension. There are no filling defects identified in main, lobar, or segmenta l pulmonary branches to suggest pulmonary embolus. Heart: The heart is enlarged and without pericardial effusion. Lungs and pleural spaces: There are small to moderate pleural effusions with bibasilar atelectasis. N o airspace consolidation is seen typical for pneumonia. There is diffuse intralobular septal thickeni ng as well as peribronchial thickening in the lower lobes. The trachea and central airways are clear. A calcified granuloma is noted in the right upper lobe. A Bochdalek hernia is noted at the right carlos g base. Mediastinum: There is no mediastinal lymphadenopathy. Radha: Clear. Axillae: There is no axillary lymphadenopathy. Upper abdomen: Reflux of contrast into the IVC and hepatic veins suggests cardiac dysfunction. Partia lly visualized upper abdominal viscera is within normal limits. Skeletal structures: The skeletal structures are osteopenic. Mild degenerative change is noted in the shoulders and thoracic spine. No lytic or blastic bony lesions are seen. IMPRESSION: 1. There is no evidence of pulmonary embolus in the main, lobar, or segmental pulmonary arteries. 2. Cardiomegaly with evidence of congestive failure. 3. Small to moderate pleural effusions with associated atelectasis. 4. There is aneurysmal dilatation of the ascending thoracic aorta which measures up to 4.3 cm in diam eter. 5. Additional findings as above. ACT 112: Negative or not required by law. Electronically signed by: Merritt Ladd M.D. 02/02/2020 3:33 PM
[2020-02-02] MEDS ORDERED: FUROSEMIDE 40 MG/4 ML VIAL IV STA (15:40)
[2020-02-02] MEDS ORDERED: METOPROLOL TARTRATE 50 MG TAB PO STA (16:29)
--- NOTE | 2020-02-02 16:35 | History & Physical Report ---
Date of Service February 02, 2020 Assessment & Plan (1) Atrial fibrillation with RVR: Pt is 89 y/o F with PMH HTN, GERD, Thyroid nodules presented to ER with c/o palpitations x 10-14 days. Was also having exertional SOB, however increased SOB past 3 days. Last 3 days noticed BLE edema. Denies CP, dizziness, syncope In ER afebrile, HR: 126, (146 on EKG), R: 20, BP: 119/74, 96% on RA. A-fib RVR on EKG, negative troponin. TSH<0.005, magnesium 1.9, no other significant electrolyte abnormality In ER given Cardizem 10mg followed by Cardizem drip at 5mg/hr with HR in low 100's and pt reporting no further palpitations and feels less SOB New onset a-fib likely secondary to hyperthyroidism Give dose metoprolol 50mg po now Stop Cardizem Continue propranolol per cardiology recommendations Metoprolol 5mg IV Q6H prn tachycardia Heparin drip started in ER, will Continue Heparin drip Echo Cardiology consult CBC, CMP in am (2) Fluid overload: BILATERAL PLEURAL EFFUSIONS LOWER EXTREMITY EDEMA -may be clinical sign of congestive heart failure -C/O exertional SOB x 1-2 weeks with increased SOB past 3 days. Last 3 days noticed BLE edema In ER BNP:3351. CTA Chest: no PE, +CHF In ER given Lasix 20mg IV CHF likely secondary to a-fib Monitor I&O's, daily weights, low sodium diet Echo Lasix 20mg IV BID Monitor electrolytes (3) Hyperthyroidism: HYPERTHYRODISIM , GRAVES DISEASE Pt had abnormal TSH with levels <0.01 in 08/2019. Was found to have bilateral thyroid nodules on thyroid US in 09/2019 and it was recommended to have FNA however pt states did not have completed. She has appointment with [facility]ology in December 2019, however appointment was rescheduled to Feb 27 [address] In ER pt afebrile Dr Evangelista spoke with Dr Abdullahi, [facility] endocrinology who recommended starting methimazole 15mg BID Keep scheduled outpatient endocrinology follow up (4) HTN (hypertension): Continue propranolol Hold lisinopril for now and monitor as receiving metoprolol and lasix (5) GERD (gastroesophageal reflux disease): Continue PPI, H2 brown DVT Prophylaxis -On Heparin IV Pt has close friend and neighbor, Sharon Anton, at [phone]. She helps care for pt and takes pt to her doctor appointments. She is with pt in ER today. Most of pt's family do not live in [facility]. Pt does have son, Franco Cho at [phone] who lives in [place], however is not in contact with pt for past several years. Pt and pt's friend has tried to contact to inform of pt's current status however did not answer Full Code as per discussion with pt Follows with Dr Lowe for routine care Pt was seen and care coordinated with Dr Evangelista. See addendum History of Present Illness Chief Complaint: Palpitations and SOB Primary Care Provider: Nelly Lowe MD Pt is 89 y/o F with PMH HTN, GERD, Thyroid nodules presented to ER with c/o palpitations x 10-14 days. Was also having exertional SOB, however increased SOB past 3 days. Last 3 days noticed BLE edema. Denies CP, dizziness, syncope. Pt states took her morning meds including her propranolol which she states is on for HTN. Pt had abnormal TSH with levels <0.01 in 08/2019. Was found to have bilateral thyroid nodules on thyroid US in 09/2019 and it was recommended to have FNA however pt states did not have completed. She has appointment with [facility] endocr[facility]ology in December 2019, however appointment was rescheduled to February 2020. Drinks 1-2 glasses of wine a day, last drink 2 days ago. Denies caffeine use. Denies fever/chills, diaphoresis, N/V/D/C, NAIR, vision changes, neck pain, cough, sore throat, choking, otalgia, rhinorrhea, abdominal pain, paresthesias, weakness, extremity weakness, rashes, urinary symptoms. Allergies Allergy/AdvReac Type Severity Reaction Status Date / Time No Known Allergies Allergy Unverified 02/02/20 13:25 Home Medications Home Medications Medication Instructions Recorded Confirmed Type cholecalciferol (vitamin D3) 125 5,000 units PO DAILY 12/28/19 02/02/20 History mcg (5,000 unit) capsule lisinopril 5 mg tablet 5 mg PO DAILY 12/28/19 02/02/20 History propranolol 40 mg tablet 40 mg PO BID 12/28/19 02/02/20 History famotidine 20 mg PO HS 02/02/20 02/02/20 History multivitamin 1 tab PO DAILY 02/02/20 02/02/20 History pantoprazole 40 mg PO DAILY 02/02/20 02/02/20 History Past Med/Surg History Medical History (Updated 02/02/20 @ 17:28 by Mnial Reyez PA-C) Allergic rhinitis Conductive hearing loss Family history non-contributory GERD (gastroesophageal reflux disease) Hemorrhoids HTN (hypertension) Irritable bowel Post-menopausal atrophic vaginitis Skin cancer Thyroid dysfunction Surgical History (Updated 02/02/20 @ 13:51 by Johanne Duran DO) H/O: hysterectomy total with BSO History of cataract surgery History of cystoscopy Hx of cholecystectomy Family History (Updated 02/02/20 @ 17:23 by Minal Reyez PA-C) Other No significant family history Social History (Updated 02/02/20 @ 13:52 by Johanne Duran DO) Preferred Language: Thai Communication Ability: Effective Hearing Ability: Hard of Hearing Beliefs That Will Affect Care: Buddhism Buddhism Beliefs: ZOROASTRIANISM marital status: / Current Living Situation: Alone Other Information That Helps Us Care for You: No Feels Safe at Home: Yes Safety Concerns: Feels Safe At This Time Smoking Status: Never smoker Hx Alcohol Use: Yes Alcohol type: wine Hx Substance Use: No Review of Systems Review of Systems: All systems reviewed & are unremarkable except as noted in HPI & below Physical Exam Physical Exam: General: no distress, WDWN Head: normocephalic, atraumatic Eyes: PERRL, EOM's intact, exophthalmos, conjunctiva non-injected, anicteric ENT: hard of hearing, normal inspection external ears, nose, mucous membranes moist Neck: supple, trachea midline Lungs: clear, no respiratory distress, no wheezing/rhonchi/rales CV: irregularly irregular, no murmur, 1-2+ pitting pretibial edema Abd: normal BS, soft, non-tender Ext: no cyanosis, no calf tenderness Neuro: A&O x 3, no focal deficits noted, normal affect Skin: warm, dry Results & Data Results & Data ([facility]) Vital Signs (Past 12 Hours) Vital Signs Temp Pulse Resp BP Pulse Ox 04/13/20 13:10 36.8 C 126 H 20 119/74 96 Laboratory Results Short CBC 02/02/20 Range/Units 13:25 WBC 8.06 (4.8-10.8) K/uL Hgb 12.9 (12.0-16.0) g/dL Hct 39.0 (37-47) % Plt Count 198 (130-400) K/uL BMP 02/02/20 13:25 Sodium 140 Potassium 4.1 Chloride 107 Carbon Dioxide 28 BUN 12 Creatinine 0.74 Glucose 139 H Calcium 9.0 Cardiac Enzymes 02/02/20 Range/Units 13:25 Troponin I < 0.015 (0-0.045) ng/ml Liver Function 02/02/20 Range/Units 13:25 Total Bilirubin 1.1 H (0.2-1) mg/dl AST 75 H (15-37) U/L ALT 122 H (12-78) U/L Alkaline Phosphatase 113 (45-117) U/L Albumin 3.4 (3.4-5.0) gm/dl Diagnostic Findings CXR: IMPRESSION: 1. Cardiomegaly without radiographic evidence of congestive failure. 2. There are trace pleural effusions with patchy bibasilar airspace opacities. This could represent scarring/atelectasis versus an infectious/inflammatory pneumonitis. Clinical correlation will be required and radiographic follow-up to resolution is recommended. CTA CHEST: IMPRESSION: 1. There is no evidence of pulmonary embolus in the main, lobar, or segmental pulmonary arteries. 2. Cardiomegaly with evidence of congestive failure. 3. Small to moderate pleural effusions with associated atelectasis. 4. 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 5. Additional findings as above. ECG Rate (beats per minute): 146 Rhythm: atrial flutter Findings: + nonspecific-ST abn Code Status & VTE Plan VTE Prophylaxis Plan VTE Prophylaxis will be ordered: Yes Supervising Physician Co-Signing Physician Notes I, Dr. Holden Evangelista, have seen and examined the patient with physician school bus driver/teacher assistant and agree with the assessment and would like to comment that this is a patient with Denisse Cho is an 89 year old female with thyroid nodule and hyperthyroidism and was planned to be worked up with [facility], however, missed her appointment in December 2019 and appointment was re-scheduled to February 27, 2020. Patient with 1 week of or shortness of breath and bilateral lower extremity edema. Patient found to be in atrial fibrillation with rapid ventricular response when seen in the ED on 02/02/2020 and also to have bilateral pleural effusions and hyperthyroid labs Physical exam General: thin, comfortable, speaking in full sentences Lungs: no wheezing, no stridor Heart: irregular rhythm, tachycardia Abdomen: soft, nontender, bowel sounds present Lower extremity: bilateral lower extremity edema Assessment and Plan ATRIAL FIBRILLATION WITH RAPID VENTRICULAR RESPONSE -started on diltiazem drip in the ER -after discussion with cardiology Dr. La, patient to continue home dose propranolol 40 mg twice a day and hospitalist team to supplement beta blocking with metoprolol and transition off the diltazem drip -50 mg metoprolol tartrate orally given in the ER on 02/02/2020, metoprolol 5 mg IV push q6 hours as needed for heart rate above 110 bpm. Depending on clinical response can consider BID oral metoprolol tartrate versus single dosing metoprolol succinate in AM of 02/03/2020 -continue heparin IV for systemic anticoagulation and stroke risk prevention as initiated by ED provider -appreciate full cardiology consult recommendations. HYPERTHYRODISIM , GRAVES DISEASE -Discussed with [facility] Endocrinology Dr. Abdullahi to start methimzole 15 mg twice a day and no further lab work up needed as the labs and symptoms suggestive of Graves Disease -patient will need to follow up with 02/27/2020 appointment for [facility] ([address], [address] [place] [address]. [phone]), however this appointment may need to be a telemedicine appointment depending on the current coronavirus pandemic and patient may need assistance at home from family friend to set up telemedicine portal from home. BILATERAL PLEURAL EFFUSIONS LOWER EXTREMITY EDEMA -may be clinical sign of congestive heart failure -will need echocardiogram and full cardiology service evaluation HYPERTENSION -hold home dose Lisinopril 5 mg while adjusting beta brown dosing and while on diuretics Agree with other assessment and plans as documented by physician school bus driver/teacher assistant
[2020-02-02] MEDS ORDERED: PNEUMOCOCCAL ADMINISTRATION CHARGE ONE (16:41)
[2020-02-02] MEDS ORDERED: PNEUMOCOCCAL POLYSACCHARIDES 25 MCG/0.5 ML VIAL/SYR IM ONE (16:41)
[2020-02-02] MEDS ORDERED: ACETAMINOPHEN 325 MG TAB PO PRN (18:55)
[2020-02-02] MEDS: FAMOTIDINE 20 MG TAB PO SCH (20:10)
[2020-02-02] MEDS: FUROSEMIDE 20 MG in SYRINGE 0 ML IV SCH (20:10)
[2020-02-02] MEDS: methIMAzole 5 MG TABLET PO SCH (20:10)
[2020-02-02] MEDS: PROPRANOLOL HCL 20 MG TAB PO SCH (20:11)
[2020-02-02 20:22] LABS: Partial Thromboplastin Ratio 1.1
[2020-02-02] MEDS ORDERED: FUROSEMIDE 40 MG/4 ML VIAL IV SCH (21:00)
[2020-02-02] MEDS ORDERED: HEPARIN IV BOLUS 4,000 UNITS in SYRINGE 0 ML IV ONE (21:00)
[2020-02-02 21:16] LABS: Appearance Urine Clear (Clear); Bilirubin Urine Negative (Negative); Blood Urine Negative (Negative); Color Urine Yellow; Glucose Urine UA Negative (Negative); Ketones Urine Trace (Negative); Leukocyte Esterase Urine Negative (Negative); Nitrite Urine Negative (Negative); Protein Urine Negative (Negative); Specific Gravity Urine 1.016 (1.000-1.030); Urobilinogen Urine Negative (Negative); pH Urine 5.5 (4.5-7.5)
[2020-02-03 03:15] LABS: Hematocrit (blood only) 36.9 % (37-47); Mean Corpuscular Hgb Conc 32.5 g/dL (32-36); Mean Corpuscular Volume 89.1 fL (80-100); Platelet Count 170 K/uL (130-400); RDW Coefficient of Variation 13.1 % (11.5-14.5); RDW Standard Deviation 42.9 fL (36.4-46.3); Red Blood Count 4.14 M/uL (4.2-5.4); White Blood Count 6.51 K/uL (4.8-10.8)
[2020-02-03 03:34] LABS: Partial Thromboplastin Ratio 1.7
[2020-02-03 03:37] LABS: Albumin Level 3.1 gm/dl (3.4-5.0); BUN Creatinine Ratio 15.5 (10-20); Bilirubin,Total 0.9 mg/dl (0.2-1); Calcium 8.4 mg/dl (8.5-10.1); Creatinine Clr Calc Pharmacy 43.9 ml/min; Est GFR (African American) 80.5; Est GFR (Non-African American) 69.4; Globulin 3.2 gm/dl (2.5-4.0); Potassium 3.1 mmol/L (3.5-5.1); Total Protein 6.3 gm/dl (6.4-8.2)
[2020-02-03 03:59] LABS: Basophils # (auto) 0.02 K/uL (0-0.2); Basophils % (auto) 0.3 %; Eosinophils # (auto) 0.18 K/uL (0-0.5); Eosinophils % (auto) 2.8 %; Lymphocytes # (auto) 3.31 K/uL (1.2-3.4); Lymphocytes % (auto) 50.8 %; Monocytes # (auto) 0.76 K/uL (0.11-0.59); Monocytes % (auto) 11.7 %; Neutrophils # (auto) 2.24 K/uL (1.4-6.5); Neutrophils % (auto) 34.4 %
--- NOTE | 2020-02-03 07:23 | Hospitalist Progress Note ---
Date of Service February 03, 2020 Assessment & Plan (1) Atrial fibrillation with RVR: Pt is 89 y/o F with PMH HTN, GERD, Thyroid nodules presented to ER with c/o palpitations x 10-14 days. Was also having exertional SOB, however increased SOB past 3 days. Last 3 days noticed BLE edema. Denies CP, dizziness, syncope In ER afebrile, HR: 126, (146 on EKG), R: 20, BP: 119/74, 96% on RA. A-fib RVR on EKG, negative troponin. TSH<0.005, magnesium 1.9, no other significant electrolyte abnormality In ER given Cardizem 10mg followed by Cardizem drip at 5mg/hr with HR in low 100's and pt reporting no further palpitations and feels less SOB New onset a-fib likely secondary to hyperthyroidism Started metoprolol 50mg BID on admission Stopped Cardizem Continued home propranolol Metoprolol 5mg IV Q6H prn tachycardia Heparin drip started in ER, will Continue Heparin drip Echo -pending Cardiology consult This AM (02/02) pt tachycardic in 140s, no PRN IV metoprolol given. Advised nursing staff to use PRN medications. If HR not controlled, may need to re-start cardizem drip. (2) Fluid overload: BILATERAL PLEURAL EFFUSIONS LOWER EXTREMITY EDEMA -may be clinical sign of congestive heart failure secondary Afib w/ RVR -C/O exertional SOB x 1-2 weeks with increased SOB past 3 days. Last 3 days noticed BLE edema In ER BNP:3351. CTA Chest: no PE, +CHF In ER given Lasix 20mg IV Monitor I&O's, daily weights, low sodium diet Echo - pending Cardiology eval pending Lasix 20mg IV BID Monitor electrolytes Hypokalemia - secondary to diuretic use - replete and monitor (3) Hyperthyroidism: HYPERTHYRODISIM , GRAVES DISEASE Pt had abnormal TSH with levels <0.01 in 08/2019. Was found to have bilateral thyroid nodules on thyroid US in 09/2019 and it was recommended to have FNA however pt states did not have completed. She has appointment with [facility] [place] in December 2019, however appointment was rescheduled to Feb [address] Evangelista spoke with Dr Abdullahi, [facility] endocr[facility]ology who recommended starting methimazole 15mg BID Keep scheduled outpatient endocrinology follow up, no further work up while inpt recommended - cont methimazole 15 mg BID (4) HTN (hypertension): Continue propranolol Hold lisinopril for now and monitor as receiving metoprolol and lasix (5) GERD (gastroesophageal reflux disease): Continue PPI, H2 brown DVT Prophylaxis -On Heparin IV Pt has close friend and neighbor, Sharon Anton, at [phone]. She helps care for pt and takes pt to her doctor appointments. Most of pt's family do not live in [facility]. Pt does have son, Franco Cho at [phone] who lives in [place], however is not in contact with pt for past several years. Pt and pt's friend has tried to contact to inform of pt's current status however did not answer. Full Code as per discussion with pt Follows with Dr Lowe for routine care Admission and Anticipated Discharge Date Admission Date: February 02, 2020 Subjective Pt's HR in 140s this AM but no PRN IV metoprolol given. Cardizem drip started in ED and stopped on admission. May need to re-start if HR not controlled with IV prn beta blockers and PO meds. Pt is currently sitting up in bed in [facility]. Denies any chest pain, palpitations, shortness of breath, dizziness or lightheadedness. Pt is aware of her thyroid nodule, says she had ultrasound done and work up by mapping editor and her next appointment is on February 26. Pt's mapping editor contacted by admitting physician, methimazole was started, no further work up recommended as pt's presentation c/w Graves disease. Pt is expected to follow up w/ endocrinology as outpt. Cardiology contacted for further input. Echo pending. Hypokalemic - K replaced. Review of Systems Review of Systems: All systems reviewed & are unremarkable except as noted in HPI & below Constitutional: no fever and no chills Respiratory: no cough and no dyspnea Cardiovascular: no chest pain, no palpitations and no edema Gastrointestinal: no abdominal pain, no nausea and no vomiting Physical Exam Physical Exam: General: elderly thin female sitting up in bed, in no acute distress, WDWN Head: normocephalic, atraumatic Eyes: PERRL, EOM's intact, exophthalmos, conjunctiva non-injected, anicteric ENT: normal inspection external ears, nose, mucous membranes moist Neck: supple, trachea midline Lungs: clear, no respiratory distress, no wheezing/rhonchi/rales CV: irregularly irregular, no murmur, trace pretibial edema Abd: normal BS, soft, non-tender, nondistended Ext: no cyanosis, no calf tenderness, moves extremities spontaneously Neuro: A&O x 3, no focal deficits noted, normal affect Skin: warm, dry Results & Data Results & Data ([facility]) Vital Signs (Past 12 Hours) Vital Signs Temp Pulse Pulse Resp BP BP Pulse Ox 02/03/20 03:18 36.9 C 120 H 16 128/79 92 02/02/20 23:16 36.7 C 108 H 16 133/89 93 02/02/20 19:56 36.8 C 119 H 120/71 91 Laboratory Results 02/03/20 02/03/20 02/03/20 Range/Units 02:57 02:57 02:57 WBC 6.51 (4.8-10.8) K/uL RBC 4.14 L (4.2-5.4) M/uL Hgb 12.0 (12.0-16.0) g/dL Hct 36.9 L (37-47) % MCV 89.1 (80-100) fL MCH 29.0 (25-34) pg MCHC 32.5 (32-36) g/dL RDW Std Deviation 42.9 (36.4-46.3) fL RDW Coeff of Angel 13.1 (11.5-14.5) % Plt Count 170 (130-400) K/uL MPV 10.0 (7.4-10.4) fL Immature Gran % (Auto) 0.0 % Neut % (Auto) 34.4 % Lymph % (Auto) 50.8 % [place] % (Auto) 11.7 % Eos % (Auto) 2.8 % Baso % (Auto) 0.3 % Immature Gran # (Auto) 0.00 (0.00-0.02) K/uL Neut # (Auto) 2.24 (1.4-6.5) K/uL Lymph # (Auto) 3.31 (1.2-3.4) K/uL [place] # (Auto) 0.76 H (0.11-0.59) K/uL Eos # (Auto) 0.18 (0-0.5) K/uL Baso # (Auto) 0.02 (0-0.2) K/uL APTT 47.0 H* (21.0-31.0) Seconds PTT Ratio 1.7 D-Dimer (0-500) ug/L FEU Sodium 141 (136-145) mmol/L Potassium 3.1 L D (3.5-5.1) mmol/L Chloride 106 (98-107) mmol/L Carbon Dioxide 29 (21-32) mmol/L Anion Gap 6.0 (3-11) BUN 12 (7-18) mg/dl Creatinine 0.77 (0.6-1.2) mg/dl Est Cr Clr Drug Dosing 43.9 ml/min Est GFR ( Amer) 80.5 Est GFR (Non-Af Amer) 69.4 BUN/Creatinine Ratio 15.5 (10-20) Glucose 119 H (70-99) mg/dl Calcium 8.4 L (8.5-10.1) mg/dl Magnesium (1.8-2.4) mg/dl Total Bilirubin 0.9 (0.2-1) mg/dl AST 59 H (15-37) U/L ALT 103 H (12-78) U/L Alkaline Phosphatase 99 (45-117) U/L Troponin I (0-0.045) ng/ml NT-Pro-B Natriuret Pep (0-1800) pg/ml Total Protein 6.3 L (6.4-8.2) gm/dl Albumin 3.1 L (3.4-5.0) gm/dl Globulin 3.2 (2.5-4.0) gm/dl Albumin/Globulin Ratio 1.0 (0.9-2) Lipase (73-393) U/L TSH (0.300-4.500) uIu/ml Free T4 (0.8-1.6) ng/dl Urine Color Urine Appearance (Clear) Urine pH (4.5-7.5) Ur Specific [place] (1.000-1.030) Urine Protein (Negative) Urine Glucose (UA) (Negative) Urine Ketones (Negative) Urine Blood (Negative) Urine Nitrite (Negative) Urine Bilirubin (Negative) Urine Urobilinogen (Negative) Ur Leukocyte Esterase (Negative) 02/02/20 02/02/20 02/02/20 Range/Units 20:30 19:53 13:25 WBC (4.8-10.8) K/uL RBC (4.2-5.4) M/uL Hgb (12.0-16.0) g/dL Hct (37-47) % MCV (80-100) fL MCH (25-34) pg MCHC (32-36) g/dL RDW Std Deviation (36.4-46.3) fL RDW Coeff of Angel (11.5-14.5) % Plt Count (130-400) K/uL MPV (7.4-10.4) fL Immature Gran % (Auto) % Neut % (Auto) % Lymph % (Auto) % [place] % (Auto) % Eos % (Auto) % Baso % (Auto) % Immature Gran # (Auto) (0.00-0.02) K/uL Neut # (Auto) (1.4-6.5) K/uL Lymph # (Auto) (1.2-3.4) K/uL [place] # (Auto) (0.11-0.59) K/uL Eos # (Auto) (0-0.5) K/uL Baso # (Auto) (0-0.2) K/uL APTT 32.0 H (21.0-31.0) Seconds PTT Ratio 1.1 D-Dimer (0-500) ug/L FEU Sodium 140 (136-145) mmol/L Potassium 4.1 (3.5-5.1) mmol/L Chloride 107 (98-107) mmol/L Carbon Dioxide 28 (21-32) mmol/L Anion Gap 5.0 (3-11) BUN 12 (7-18) mg/dl Creatinine 0.74 (0.6-1.2) mg/dl Est Cr Clr Drug Dosing 45.7 ml/min Est GFR ( Amer) 84.4 Est GFR (Non-Af Amer) 72.8 BUN/Creatinine Ratio 16.3 (10-20) Glucose 139 H (70-99) mg/dl Calcium 9.0 (8.5-10.1) mg/dl Magnesium 1.9 (1.8-2.4) mg/dl Total Bilirubin 1.1 H (0.2-1) mg/dl AST 75 H (15-37) U/L ALT 122 H (12-78) U/L Alkaline Phosphatase 113 (45-117) U/L Troponin I < 0.015 (0-0.045) ng/ml NT-Pro-B Natriuret Pep 3351 H (0-1800) pg/ml Total Protein 6.8 (6.4-8.2) gm/dl Albumin 3.4 (3.4-5.0) gm/dl Globulin 3.4 (2.5-4.0) gm/dl Albumin/Globulin Ratio 1.0 (0.9-2) Lipase 129 (73-393) U/L TSH < 0.005 L (0.300-4.500) uIu/ml Free T4 2.69 H (0.8-1.6) ng/dl Urine Color Yellow Urine Appearance Clear (Clear) Urine pH 5.5 (4.5-7.5) Ur Specific [place] 1.016 (1.000-1.030) Urine Protein Negative (Negative) Urine Glucose (UA) Negative (Negative) Urine Ketones Trace H (Negative) Urine Blood Negative (Negative) Urine Nitrite Negative (Negative) Urine Bilirubin Negative (Negative) Urine Urobilinogen Negative (Negative) Ur Leukocyte Esterase Negative (Negative) 02/02/20 02/02/20 Range/Units 13:25 13:25 WBC 8.06 (4.8-10.8) K/uL RBC 4.33 (4.2-5.4) M/uL Hgb 12.9 (12.0-16.0) g/dL Hct 39.0 (37-47) % MCV 90.1 (80-100) fL MCH 29.8 (25-34) pg MCHC 33.1 (32-36) g/dL RDW Std Deviation 43.5 (36.4-46.3) fL RDW Coeff of Angel 13.2 (11.5-14.5) % Plt Count 198 (130-400) K/uL MPV 10.0 (7.4-10.4) fL Immature Gran % (Auto) 0.2 % Neut % (Auto) 72.8 % Lymph % (Auto) 19.2 % [place] % (Auto) 6.5 % Eos % (Auto) 1.2 % Baso % (Auto) 0.1 % Immature Gran # (Auto) 0.02 (0.00-0.02) K/uL Neut # (Auto) 5.86 (1.4-6.5) K/uL Lymph # (Auto) 1.55 (1.2-3.4) K/uL [place] # (Auto) 0.52 (0.11-0.59) K/uL Eos # (Auto) 0.10 (0-0.5) K/uL Baso # (Auto) 0.01 (0-0.2) K/uL APTT (21.0-31.0) Seconds PTT Ratio D-Dimer 710 H* (0-500) ug/L FEU Sodium (136-145) mmol/L Potassium (3.5-5.1) mmol/L Chloride (98-107) mmol/L Carbon Dioxide (21-32) mmol/L Anion Gap (3-11) BUN (7-18) mg/dl Creatinine (0.6-1.2) mg/dl Est Cr Clr Drug Dosing ml/min Est GFR ( Amer) Est GFR (Non-Af Amer) BUN/Creatinine Ratio (10-20) Glucose (70-99) mg/dl Calcium (8.5-10.1) mg/dl Magnesium (1.8-2.4) mg/dl Total Bilirubin (0.2-1) mg/dl AST (15-37) U/L ALT (12-78) U/L Alkaline Phosphatase (45-117) U/L Troponin I (0-0.045) ng/ml NT-Pro-B Natriuret Pep (0-1800) pg/ml Total Protein (6.4-8.2) gm/dl Albumin (3.4-5.0) gm/dl Globulin (2.5-4.0) gm/dl Albumin/Globulin Ratio (0.9-2) Lipase (73-393) U/L TSH (0.300-4.500) uIu/ml Free T4 (0.8-1.6) ng/dl Urine Color Urine Appearance (Clear) Urine pH (4.5-7.5) Ur Specific [place] (1.000-1.030) Urine Protein (Negative) Urine Glucose (UA) (Negative) Urine Ketones (Negative) Urine Blood (Negative) Urine Nitrite (Negative) Urine Bilirubin (Negative) Urine Urobilinogen (Negative) Ur Leukocyte Esterase (Negative) Medications Administered Current Inpatient Medications Acetaminophen (Tylenol) 650 mg PO Q4H PRN PRN Reason: Pain or Fever Stop: 03/03/20 18:54 Famotidine (Pepcid) 20 mg PO HS KAVIN Stop: 03/03/20 20:59 Last Admin: 02/02/20 20:10 Dose: 20 mg Documented by: Heparin Sodium/Dextrose (Heparin Sodium/Dextrose) 25,000 units in 500 mls @ 15 mls/hr IV .Q24H KAVIN; Protocol Stop: 03/03/20 13:44 Last Titration: 02/03/20 06:57 Dose: 750 units/hr, 15 mls/hr Documented by: Furosemide 20 mg/ Syringe 2 mls @ 4 mls/min IV BID@0900,1700 KAVIN Stop: 03/03/20 20:59 Last Admin: 02/02/20 20:10 Dose: 4 mls/min Documented by: Methimazole (Tapazole) 15 mg PO BID KAVIN Stop: 03/03/20 20:59 Last Admin: 02/02/20 20:10 Dose: 15 mg Documented by: Metoprolol Tartrate (Lopressor) 5 mg IV Q6 PRN PRN Reason: Tachycardia Stop: 03/03/20 18:54 Metoprolol Tartrate (Lopressor) 50 mg PO BID [facility] Stop: 02/09/20 08:59 Multivitamins (Multivitamin Tab) 1 tab PO DAILY [facility] Stop: 03/04/20 08:59 Pantoprazole Sodium (Protonix) 40 mg PO DAILY KAVIN Stop: 03/04/20 08:59 Propranolol HCl (Inderal) 40 mg PO BID KAVIN Stop: 03/03/20 20:59 Last Admin: 02/02/20 20:11 Dose: 40 mg Documented by: Vitamin D (Vitamin D3) 1,000 units PO DAILY [facility] Stop: 03/04/20 08:59
[2020-02-03] MEDS ORDERED: POTASSIUM CHLORIDE 20 MEQ TABCR PO STA (07:35)
[2020-02-03] MEDS: FUROSEMIDE 20 MG in SYRINGE 0 ML IV SCH ×2 (07:56→16:46)
[2020-02-03] MEDS: PROPRANOLOL HCL 20 MG TAB PO SCH (07:56)
[2020-02-03] MEDS: methIMAzole 5 MG TABLET PO SCH ×2 (07:56→21:01)
[2020-02-03] MEDS: CHOLECALCIFEROL 1,000 UNITS 25 MCG TAB PO SCH (07:57)
[2020-02-03] MEDS: MULTIVITAMIN TAB PO SCH (07:57)
[2020-02-03] MEDS: PANTOprazole 40 MG TAB PO SCH (07:57)
[2020-02-03] MEDS: POTASSIUM CHLORIDE / WTR 10 MEQ/100 ML PLCT IV SCH ×2 (08:46→09:04)
[2020-02-03] MEDS ORDERED: METOPROLOL TARTRATE 50 MG TAB PO SCH (09:00)
[2020-02-03] MEDS ORDERED: MAGNESIUM SULFATE / D5W 1 GM/100 ML BAG IV ONE (09:05)
[2020-02-03] MEDS: METOPROLOL TARTRATE 1 MG/ML VIAL IV PRN (09:37)
[2020-02-03] MEDS: dilTIAZem HCL 125 MG in DEXTROSE 5% 100 ML IV SCH ×2 (10:02→23:34)
[2020-02-03] MEDS ORDERED: POTASSIUM CHLORIDE 20 MEQ/15 ML UDC PO STA (10:28)
--- NOTE | 2020-02-03 10:36 | Cardiology Consultation ---
Date of Consultation February 03, 2020 Assessment & Plan (1) Hyperthyroidism: (2) Atrial fibrillation with RVR: The treatment for the atrial fibrillation should be supportive care with beta-blockers and anticoagulation. The patient should have her hyperthyroidism treated as she will not return to sinus rhythm now or in the future unless her thyroid disease is controlled. Currently she is on metoprolol and propranolol. I will stop the propranolol and increase the dose of metoprolol to 50 mg 3 times daily. Work-up of the hyperthyroidism per the hospitalist. History of Present Illness Attending Physician: Sadi Colon MD History of Present Illness This is an 89-year-old female who has been healthy most of her life and has never been in the hospital until now. She has been treated for mild essential hypertension. She has been on propranolol for decades. Recently she was diagnosed with hyperthyroidism and possibly a hot thyroid nodule. She was admit eir with atrial fibrillation with RVR. She has been started on Tapazole and currently is receiving metoprolol and now a diltiazem infusion to help control her heart rate. She has no complaints of chest pain or shortness of breath. An echocardiogram was completed this morning which I will review. Allergies Allergy/AdvReac Type Severity Reaction Status Date / Time No Known Allergies Allergy Unverified 02/02/20 13:25 Home Medications Home Medications Medication Instructions Recorded Confirmed Type cholecalciferol (vitamin D3) 125 5,000 units PO DAILY 12/28/19 02/02/20 History mcg (5,000 unit) capsule lisinopril 5 mg tablet 5 mg PO DAILY 12/28/19 02/02/20 History propranolol 40 mg tablet 40 mg PO BID 12/28/19 02/02/20 History famotidine 20 mg PO HS 02/02/20 02/02/20 History multivitamin 1 tab PO DAILY 02/02/20 02/02/20 History pantoprazole 40 mg PO DAILY 02/02/20 02/02/20 History Patient History Medical History Allergic rhinitis Conductive hearing loss Family history non-contributory GERD (gastroesophageal reflux disease) Hemorrhoids HTN (hypertension) Irritable bowel Post-menopausal atrophic vaginitis Skin cancer Thyroid dysfunction Surgical History H/O: hysterectomy total with BSO History of cataract surgery History of cystoscopy Hx of cholecystectomy Family History Other No significant family history Social History Preferred Language: [place] Communication Ability: Effective Hearing Ability: Hard of Hearing Beliefs That Will Affect Care: Taoist Taoist Beliefs: PENTECOSTALISM marital status: / Current Living Situation: Alone Other Information That Helps Us Care for You: No Feels Safe at Home: Yes Safety Concerns: Feels Safe At This Time Smoking Status: Never smoker Hx Alcohol Use: Yes Alcohol type: wine Hx Substance Use: No Review of Systems Review of Systems: All systems reviewed & are unremarkable except as noted in HPI & below Nothing additional to add. Physical Exam Physical Exam: General: no acute distress and stated age Head: normocephalic, no masses, lesions, tenderness or abnormalities Eyes: conjunctiva are pink and non-injected, sclera clear Neck: supple, no adenopathy, no bruits, normal jugular venous pulse, no hep atojugular reflux Chest: normal shape and normal respiratory effort Lungs: clear to auscultation and percussion Cardiac Exam: -Irregular rate & rhythm, no murmurs gallops or rubs - normal S1, normal S2 Pulses: 2(+) throughout Abdomen: abdomen soft, non-tender, no abnormal masses and no hepatosplenomegaly Musculoskeletal: no gait disturbance, no joint inflammation, no deforming arthritis Extremities: no edema and no cyanosis Neuro: grossly normal exam Results & Data ([facility]) Vital Signs (Past 12 Hours) Vital Signs Temp Pulse Pulse Resp BP BP Pulse Ox 02/03/20 09:37 142 H 02/03/20 07:00 36.9 C 141 H 22 138/96 94 02/03/20 03:18 36.9 C 120 H 16 128/79 92 02/02/20 23:16 36.7 C 108 H 16 133/89 93 Laboratory Results Laboratory Results - last 24 hr 02/02/20 02/02/20 02/02/20 13:25 13:25 13:25 WBC 8.06 RBC 4.33 Hgb 12.9 Hct 39.0 MCV 90.1 MCH 29.8 MCHC 33.1 RDW Std Deviation 43.5 RDW Coeff of Angel 13.2 Plt Count 198 MPV 10.0 Immature Gran % (Auto) 0.2 Neut % (Auto) 72.8 Lymph % (Auto) 19.2 [place] % (Auto) 6.5 Eos % (Auto) 1.2 Baso % (Auto) 0.1 Immature Gran # (Auto) 0.02 Neut # (Auto) 5.86 Lymph # (Auto) 1.55 [place] # (Auto) 0.52 Eos # (Auto) 0.10 Baso # (Auto) 0.01 APTT PTT Ratio D-Dimer 710 H* Sodium 140 Potassium 4.1 Chloride 107 Carbon Dioxide 28 Anion Gap 5.0 BUN 12 Creatinine 0.74 Est Cr Clr Drug Dosing 45.7 Est GFR ( Amer) 84.4 Est GFR (Non-Af Amer) 72.8 BUN/Creatinine Ratio 16.3 Glucose 139 H Calcium 9.0 Magnesium 1.9 Total Bilirubin 1.1 H AST 75 H ALT 122 H Alkaline Phosphatase 113 Troponin I < 0.015 NT-Pro-B Natriuret Pep 3351 H Total Protein 6.8 Albumin 3.4 Globulin 3.4 Albumin/Globulin Ratio 1.0 Lipase 129 TSH < 0.005 L Free T4 2.69 H Urine Color Urine Appearance Urine pH Ur Specific [place] Urine Protein Urine Glucose (UA) Urine Ketones Urine Blood Urine Nitrite Urine Bilirubin Urine Urobilinogen Ur Leukocyte Esterase 02/02/20 02/02/20 02/03/20 19:53 20:30 02:57 WBC 6.51 RBC 4.14 L Hgb 12.0 Hct 36.9 L MCV 89.1 MCH 29.0 MCHC 32.5 RDW Std Deviation 42.9 RDW Coeff of Angel 13.1 Plt Count 170 MPV 10.0 Immature Gran % (Auto) 0.0 Neut % (Auto) 34.4 Lymph % (Auto) 50.8 [place] % (Auto) 11.7 Eos % (Auto) 2.8 Baso % (Auto) 0.3 Immature Gran # (Auto) 0.00 Neut # (Auto) 2.24 Lymph # (Auto) 3.31 [place] # (Auto) 0.76 H Eos # (Auto) 0.18 Baso # (Auto) 0.02 APTT 32.0 H PTT Ratio 1.1 D-Dimer Sodium Potassium Chloride Carbon Dioxide Anion Gap BUN Creatinine Est Cr Clr Drug Dosing Est GFR ( Amer) Est GFR (Non-Af Amer) BUN/Creatinine Ratio Glucose Calcium Magnesium Total Bilirubin AST ALT Alkaline Phosphatase Troponin I NT-Pro-B Natriuret Pep Total Protein Albumin Globulin Albumin/Globulin Ratio Lipase TSH Free T4 Urine Color Yellow Urine Appearance Clear Urine pH 5.5 Ur Specific [place] 1.016 Urine Protein Negative Urine Glucose (UA) Negative Urine Ketones Trace H Urine Blood Negative Urine Nitrite Negative Urine Bilirubin Negative Urine Urobilinogen Negative Ur Leukocyte Esterase Negative 02/03/20 02/03/20 02/03/20 02:57 02:57 02:57 WBC RBC Hgb Hct MCV MCH MCHC RDW Std Deviation RDW Coeff of Angel Plt Count MPV Immature Gran % (Auto) Neut % (Auto) Lymph % (Auto) [place] % (Auto) Eos % (Auto) Baso % (Auto) Immature Gran # (Auto) Neut # (Auto) Lymph # (Auto) [place] # (Auto) Eos # (Auto) Baso # (Auto) APTT 47.0 H* PTT Ratio 1.7 D-Dimer Sodium 141 Potassium 3.1 L D Chloride 106 Carbon Dioxide 29 Anion Gap 6.0 BUN 12 Creatinine 0.77 Est Cr Clr Drug Dosing 43.9 Est GFR ( Amer) 80.5 Est GFR (Non-Af Amer) 69.4 BUN/Creatinine Ratio 15.5 Glucose 119 H Calcium 8.4 L Magnesium 1.7 L Total Bilirubin 0.9 AST 59 H ALT 103 H Alkaline Phosphatase 99 Troponin I NT-Pro-B Natriuret Pep Total Protein 6.3 L Albumin 3.1 L Globulin 3.2 Albumin/Globulin Ratio 1.0 Lipase TSH Free T4 Urine Color Urine Appearance Urine pH Ur Specific [place] Urine Protein Urine Glucose (UA) Urine Ketones Urine Blood Urine Nitrite Urine Bilirubin Urine Urobilinogen Ur Leukocyte Esterase Medications Administered Current Inpatient Medications Acetaminophen (Tylenol) 650 mg PO Q4H PRN PRN Reason: Pain or Fever Stop: 03/03/20 18:54 Famotidine (Pepcid) 20 mg PO HS [facility] Stop: 03/03/20 20:59 Last Admin: 02/02/20 20:10 Dose: 20 mg Documented by: Heparin Sodium/Dextrose (Heparin Sodium/Dextrose) 25,000 units in 500 mls @ 15 mls/hr IV .Q24H [facility]; Protocol Stop: 03/03/20 13:44 Last Titration: 02/03/20 06:57 Dose: 750 units/hr, 15 mls/hr Documented by: Furosemide 20 mg/ Syringe 2 mls @ 4 mls/min IV BID@0900,1700 [facility] Stop: 03/03/20 20:59 Last Admin: 02/03/20 07:56 Dose: 4 mls/min Documented by: Diltiazem HCl 125 mg/ Dextrose 125 mls @ 5 mls/hr IV .Q24H [facility]; Protocol Stop: 03/04/20 09:14 Last Admin: 02/03/20 10:02 Dose: 5 mg/hr, 5 mls/hr Documented by: Methimazole (Tapazole) 15 mg PO BID [facility] Stop: 03/03/20 20:59 Last Admin: 02/03/20 07:56 Dose: 15 mg Documented by: Metoprolol Tartrate (Lopressor) 5 mg IV Q6 PRN PRN Reason: Tachycardia Stop: 03/03/20 18:54 Last Admin: 02/03/20 09:37 Dose: 5 mg Documented by: Metoprolol Tartrate (Lopressor) 50 mg PO BID [facility] Stop: 02/09/20 08:59 Last Admin: 02/03/20 07:57 Dose: 50 mg Documented by: Multivitamins (Multivitamin Tab) 1 tab PO DAILY [facility] Stop: 03/04/20 08:59 Last Admin: 02/03/20 07:57 Dose: 1 tab Documented by: Pantoprazole Sodium (Protonix) 40 mg PO DAILY [facility] Stop: 03/04/20 08:59 Last Admin: 02/03/20 07:57 Dose: 40 mg Documented by: Potassium Chloride (Klor-Con M20) 40 meq PO QAM [facility] Stop: 03/04/20 10:59 Propranolol HCl (Inderal) 40 mg PO BID [facility] Stop: 03/03/20 20:59 Last Admin: 02/03/20 07:56 Dose: 40 mg Documented by: Vitamin D (Vitamin D3) 1,000 units PO DAILY [facility] Stop: 03/04/20 08:59 Last Admin: 02/03/20 07:57 Dose: 1,000 units Documented by:
[2020-02-03] MEDS: POTASSIUM CHLORIDE 20 MEQ TABCR PO SCH (11:03)
[2020-02-03] MEDS: METOPROLOL TARTRATE 50 MG TAB PO SCH ×2 (14:40→21:01)
[2020-02-03] MEDS: FAMOTIDINE 20 MG TAB PO SCH (21:02)
[2020-02-03] MEDS: HEPARIN SODIUM/DEXTROSE 25,000 UNITS/500 ML BAG IV SCH (22:48)
[2020-02-04 04:58] LABS: Hematocrit (blood only) 37.3 % (37-47); Hemoglobin 12.2 g/dL (12.0-16.0); Mean Corpuscular Hemoglobin 29.4 pg (25-34); Mean Corpuscular Hgb Conc 32.7 g/dL (32-36); Mean Corpuscular Volume 89.9 fL (80-100); Mean Platelet Volume 10.4 fL (7.4-10.4); Platelet Count 184 K/uL (130-400); RDW Coefficient of Variation 13.2 % (11.5-14.5); RDW Standard Deviation 43.2 fL (36.4-46.3); Red Blood Count 4.15 M/uL (4.2-5.4); White Blood Count 6.33 K/uL (4.8-10.8)
[2020-02-04 05:14] LABS: Partial Thromboplastin Ratio 1.4; Partial Thromboplastin Time 38.4 Seconds (21.0-31.0)
[2020-02-04 05:17] LABS: BUN Creatinine Ratio 14.6 (10-20); Calcium 8.9 mg/dl (8.5-10.1); Creatinine Clr Calc Pharmacy 42.6 ml/min; Est GFR (African American) 81.7; Est GFR (Non-African American) 70.5; Magnesium 1.9 mg/dl (1.8-2.4); Potassium 3.2 mmol/L (3.5-5.1)
[2020-02-04] MEDS ORDERED: HEPARIN IV BOLUS 4,000 UNITS in SYRINGE 0 ML IV ONE (05:45)
[2020-02-04] MEDS: methIMAzole 5 MG TABLET PO SCH ×2 (07:29→19:57)
[2020-02-04] MEDS: METOPROLOL TARTRATE 50 MG TAB PO SCH ×3 (07:30→19:56)
[2020-02-04] MEDS: MULTIVITAMIN TAB PO SCH (07:34)
[2020-02-04] MEDS: CHOLECALCIFEROL 1,000 UNITS 25 MCG TAB PO SCH (07:34)
[2020-02-04] MEDS: POTASSIUM CHLORIDE 20 MEQ TABCR PO SCH (07:34)
[2020-02-04] MEDS: PANTOprazole 40 MG TAB PO SCH (07:34)
[2020-02-04] MEDS ORDERED: POTASSIUM CHLORIDE 20 MEQ TABCR PO ONE (08:15)
[2020-02-04] MEDS: FUROSEMIDE 20 MG in SYRINGE 0 ML IV SCH (08:39)
--- NOTE | 2020-02-04 09:42 | Cardiology Progress Note ---
Date of Service February 04, 2020 Assessment & Plan (1) Hyperthyroidism: (2) Atrial fibrillation with RVR: Patient's heart rates are better controlled and I am going to try to wean her diltiazem as she is only on 5 mg/h IV. If necessary we can use as needed metoprolol IV and we can also increase her metoprolol up to 200 mg daily provided her blood pressure is maintained. Clinically I do not believe she is in congestive heart failure and I am going to hold her IV Lasix. Potassium supplements were given this morning. Subjective The patient had an uneventful night. Heart rates are better controlled. Currently on 150 mg of metoprolol daily and diltiazem at 5 mg/h IV infusion. Review of Systems Review of Systems: All systems reviewed & are unremarkable except as noted in HPI & below Nothing additional to add. Physical Exam Physical Exam: General: no acute distress and stated age Head: normocephalic, no masses, lesions, tenderness or abnormalities Eyes: conjunctiva are pink and non-injected, sclera clear Neck: supple, no adenopathy, no bruits, normal jugular venous pulse, no hepatojugular reflux Chest: normal shape and normal respiratory effort Lungs: clear to auscultation and percussion Cardiac Exam: - irregular rate & rhythm, no murmurs gallops or rubs - normal S1, normal S2 Pulses: 2(+) throughout Abdomen: abdomen soft, non-tender, no abnormal masses and no hepatosplenomegaly Musculoskeletal: no gait disturbance, no joint inflammation, no deforming arthritis Extremities: no edema and no cyanosis Neuro: grossly normal exam Results & Data Vital Signs (Past 12 Hours) Vital Signs Temp Pulse Pulse Resp BP Pulse Ox 02/04/20 07:10 91 H 106/69 02/04/20 07:00 36.7 C 97 H 91 H 17 106/69 90 02/04/20 03:27 36.8 C 105 H 17 112/81 95 02/04/20 00:07 88 02/03/20 23:39 36.9 C 120 H 18 109/77 95 Laboratory Results Laboratory Results - last 24 hr 02/04/20 02/04/20 02/04/20 04:28 04:28 04:28 WBC 6.33 RBC 4.15 L Hgb 12.2 Hct 37.3 MCV 89.9 MCH 29.4 MCHC 32.7 RDW Std Deviation 43.2 RDW Coeff of Angel 13.2 Plt Count 184 MPV 10.4 APTT 38.4 H PTT Ratio 1.4 Sodium 137 Potassium 3.2 L Chloride 105 Carbon Dioxide 31 Anion Gap 1.0 L BUN 11 Creatinine 0.76 Est Cr Clr Drug Dosing 42.6 Est GFR ( Amer) 81.7 Est GFR (Non-Af Amer) 70.5 BUN/Creatinine Ratio 14.6 Glucose 142 H Calcium 8.9 Magnesium 1.9 Medications Administered Current Inpatient Medications Acetaminophen (Tylenol) 650 mg PO Q4H PRN PRN Reason: Pain or Fever Stop: 03/03/20 18:54 Famotidine (Pepcid) 20 mg PO HS [facility] Stop: 03/03/20 20:59 Last Admin: 02/03/20 21:02 Dose: 20 mg Documented by: Heparin Sodium/Dextrose (Heparin Sodium/Dextrose) 25,000 units in 500 mls @ 17 mls/hr IV .Q24H [facility]; Protocol Stop: 03/03/20 13:44 Last Titration: 02/04/20 07:14 Dose: 850 units/hr, 17 mls/hr Documented by: Diltiazem HCl 125 mg/ Dextrose 125 mls @ 5 mls/hr IV .Q24H [facility]; Protocol Stop: 03/04/20 09:14 Last Titration: 02/04/20 07:14 Dose: 5 mg/hr, 5 mls/hr Documented by: Methimazole (Tapazole) 15 mg PO BID [facility] Stop: 03/03/20 20:59 Last Admin: 02/04/20 07:29 Dose: 15 mg Documented by: Metoprolol Tartrate (Lopressor) 5 mg IV Q6 PRN PRN Reason: Tachycardia Stop: 03/03/20 18:54 Last Admin: 02/03/20 09:37 Dose: 5 mg Documented by: Metoprolol Tartrate (Lopressor) 50 mg PO TID [facility] Stop: 03/04/20 13:59 Last Admin: 02/04/20 07:30 Dose: 50 mg Documented by: Multivitamins (Multivitamin Tab) 1 tab PO DAILY [facility] Stop: 03/04/20 08:59 Last Admin: 02/04/20 07:34 Dose: 1 tab Documented by: Pantoprazole Sodium (Protonix) 40 mg PO DAILY [facility] Stop: 03/04/20 08:59 Last Admin: 02/04/20 07:34 Dose: 40 mg Documented by: Potassium Chloride (Klor-Con M20) 40 meq PO QAM [facility] Stop: 03/04/20 10:59 Last Admin: 02/04/20 07:34 Dose: 40 meq Documented by: Vitamin D (Vitamin D3) 1,000 units PO DAILY [facility] Stop: 03/04/20 08:59 Last Admin: 02/04/20 07:34 Dose: 1,000 units Documented by: Warfarin Sodium (Coumadin) 5 mg PO DAILY@1600 [facility] Stop: 03/05/20 15:59
[2020-02-04 10:07] LABS: INR 1.1 (0.9-1.1)
--- NOTE | 2020-02-04 11:45 | Hospitalist Progress Note ---
Date of Service February 04, 2020 Assessment & Plan (1) Fluid overload: (2) Acute systolic heart failure: (3) Atrial fibrillation with RVR: 89 y/o F with PMH HTN, GERD, Thyroid nodules presented to ER with c/o palpitations x 10-14 days. Was also having exertional SOB, however increased SOB past 3 days. Last 3 days noticed BLE edema. Denies CP, dizziness, syncope In ER afebrile, HR: 126, (146 on EKG), R: 20, BP: 119/74, 96% on RA. A-fib RVR on EKG, negative troponin. TSH<0.005, magnesium 1.9, no other significant electrolyte abnormality In ER given Cardizem 10mg followed by Cardizem drip at 5mg/hr with HR in low 100's and pt reporting no further palpitations and feels less SOB Film Sorter recommendations noted Currently on po metoprolol 50mg tid. May increased up to total of 200mg day dose per cardiology Continue prn iv lopressor Cardizem drip discontinued Optimize rate control Currently on heparin drip. Started on warfarin Acute systolic heart failure likely due to Afib in the setting of hyperthyroidism Echo result noted. EF 40-45% Discussed case with logistics team lead Currently euvolemic. Sarita held this AM (4) Hyperthyroidism: Pt had abnormal TSH with levels <0.01 in 08/2019. Was found to have bilateral thyroid nodules on thyroid US in 09/2019 and it was recommended to have FNA however pt states did not have completed. She has appointment with [facility] endocrinology in December 2019, however appointment was rescheduled to Feb [address] Evangelista spoke with Dr Abdullahi, [facility] endocrinology who recommended starting methimazole 15mg BID Keep scheduled outpatient endocrinology follow up, no further work up while inpt recommended Cont methimazole 15 mg BID (5) HTN (hypertension): BP currently stable Hold lisinopril for now and monitor as receiving metoprolol (6) GERD (gastroesophageal reflux disease): Continue PPI, H2 brown (7) Hypokalemia Repleted this morning Monitor DVT Prophylaxis On Heparin IV, started coumadine Pt has close friend and neighbor, Sharon Anton, at [phone]. She helps care for pt and takes pt to her doctor appointments. Most of pt's family do not live in [facility]. Pt does have son, Franco Cho at [phone] who lives in [place], however is not in contact with pt for past several years. Full Code as per discussion with pt Follows with Dr Lowe for routine care Admission and Anticipated Discharge Date Admission Date: February 02, 2020 Subjective Patient seen and examined. Reports shortness of breath, palpitation and leg swelling all resolved. Denied any chest pain Denied any other symptoms Physical Exam Constitutional: + well hydrated; no acute distress Eyes: PERRL, conjunctivae normal, anicteric sclerae ENMT: external ear and nose normal, oropharynx normal Respiratory: normal respiratory effort, lungs clear to auscultation Cardiovascular: Regular rate, irregularly irregular rhythm, S1 S2, no edema Gastrointestinal (Abdomen): normal bowel sounds, soft, nontender, no hepatosplenomegaly Musculoskeletal: no cyanosis or clubbing, extremities motor strength 5/5 Neurologic: PERRL, EOMI, accommodation nl, no face palsy, no dysarthria Psychiatric: A+Ox3, euthymic affect Results & Data Results & Data ([facility]) Vital Signs (Past 12 Hours) Vital Signs Temp Pulse Pulse Resp BP Pulse Ox 02/04/20 07:10 91 H 106/69 02/04/20 07:00 36.7 C 97 H 91 H 17 106/69 90 02/04/20 03:27 36.8 C 105 H 17 112/81 95 02/04/20 00:07 88 Laboratory Results Short CBC 02/04/20 Range/Units 04:28 WBC 6.33 (4.8-10.8) K/uL Hgb 12.2 (12.0-16.0) g/dL Hct 37.3 (37-47) % Plt Count 184 (130-400) K/uL BMP 02/04/20 04:28 Sodium 137 Potassium 3.2 L Chloride 105 Carbon Dioxide 31 BUN 11 Creatinine 0.76 Glucose 142 H Calcium 8.9
[2020-02-04 12:01] LABS: Partial Thromboplastin Ratio 2.2
[2020-02-04 12:28] LABS: Partial Thromboplastin Time 62.1 Seconds (21.0-31.0)
[2020-02-04] MEDS: HEPARIN SODIUM/DEXTROSE 25,000 UNITS/500 ML BAG IV SCH (13:33)
[2020-02-04] MEDS: WARFARIN SOD 5 MG TAB PO SCH (15:53)
[2020-02-04] MEDS: METOPROLOL TARTRATE 1 MG/ML VIAL IV PRN (16:18)
[2020-02-04] MEDS: FAMOTIDINE 20 MG TAB PO SCH (19:57)
[2020-02-04] MEDS ORDERED: dilTIAZem HCl 5 MG/ML 5 ML VIAL IV STA (23:43)
[2020-02-05] MEDS ORDERED: LORazepam 0.5 MG TAB PO STA (03:27)
[2020-02-05] MEDS: METOPROLOL TARTRATE 1 MG/ML VIAL IV PRN ×2 (05:04→22:00)
[2020-02-05 05:44] LABS: Hemoglobin 12.4 g/dL (12.0-16.0); Mean Corpuscular Hemoglobin 29.4 pg (25-34); Mean Corpuscular Hgb Conc 32.6 g/dL (32-36); Mean Platelet Volume 9.8 fL (7.4-10.4); Platelet Count 178 K/uL (130-400); RDW Coefficient of Variation 13.1 % (11.5-14.5); RDW Standard Deviation 42.6 fL (36.4-46.3); Red Blood Count 4.22 M/uL (4.2-5.4)
[2020-02-05 06:17] LABS: INR 1.2 (0.9-1.1); Partial Thromboplastin Ratio 1.7; Prothrombin Time 12.2 Seconds (9.0-12.0)
[2020-02-05 06:21] LABS: Partial Thromboplastin Time 47.6 Seconds (21.0-31.0)
[2020-02-05 06:35] LABS: BUN Creatinine Ratio 15.3 (10-20); Calcium 9.3 mg/dl (8.5-10.1); Est GFR (African American) 90.3; Est GFR (Non-African American) 77.9; Potassium 3.8 mmol/L (3.5-5.1)
[2020-02-05] MEDS: METOPROLOL TARTRATE 50 MG TAB PO SCH ×4 (08:45→20:17)
[2020-02-05] MEDS: POTASSIUM CHLORIDE 20 MEQ TABCR PO SCH (08:45)
[2020-02-05] MEDS: MULTIVITAMIN TAB PO SCH (08:45)
[2020-02-05] MEDS: methIMAzole 5 MG TABLET PO SCH ×2 (08:45→20:18)
[2020-02-05] MEDS: CHOLECALCIFEROL 1,000 UNITS 25 MCG TAB PO SCH (08:46)
[2020-02-05] MEDS: PANTOprazole 40 MG TAB PO SCH (08:46)
--- NOTE | 2020-02-05 10:20 | Cardiology Progress Note ---
Date of Service February 05, 2020 Assessment & Plan (1) Hyperthyroidism: (2) Atrial fibrillation with RVR: The patient is clinically stable however, she continues to have A. fib with high heart rates. I will increase her metoprolol to 200 mg daily. If we cannot control heart rate with this dose of metoprolol then I will add additional meds. Her echocardiogram indicates mild LV dysfunction with an estimated left ventricular ejection fraction of 45% along with severe MR. I therefore will add a low dose of lisinopril at 2.5 mg daily. Hopefully her blood pressure will handle these medication changes. The A. fib will be hard to control until her hyperthyroidism has improved. Subjective No complaints today. Review of Systems Review of Systems: All systems reviewed & are unremarkable except as noted in HPI & below Nothing additional to add. Physical Exam Physical Exam: General: no acute distress and stated age Head: normocephalic, no masses, lesions, tenderness or abnormalities Eyes: conjunctiva are pink and non-injected, sclera clear Neck: supple, no adenopathy, no bruits, normal jugular venous pulse, no hepatojugular reflux Chest: normal shape and normal respiratory effort Lungs: clear to auscultation and percussion Cardiac Exam: - irregular rate & rhythm, no murmurs gallops or rubs - normal S1, normal S2 Pulses: 2(+) throughout Abdomen: abdomen soft, non-tender, no abnormal masses and no hepatosplenomegaly Musculoskeletal: no gait disturbance, no joint inflammation, no deforming arthritis Extremities: no edema and no cyanosis Neuro: grossly normal exam Results & Data Vital Signs (Past 12 Hours) Vital Signs Temp Pulse Pulse Pulse Resp BP BP 02/05/20 08:40 120 H 115/80 02/05/20 07:09 36.5 C 101 H 18 97/77 L 02/05/20 05:04 122 H 110/56 L 02/05/20 05:00 122 H 110/56 L 02/05/20 03:26 36.9 C 112 H 18 112/78 02/05/20 00:31 91 H 103/71 02/04/20 23:58 122 H 106/66 02/04/20 23:30 116 H Pulse Ox 02/05/20 08:40 02/05/20 07:09 94 02/05/20 05:04 02/05/20 05:00 02/05/20 03:26 94 02/05/20 00:31 02/04/20 23:58 02/04/20 23:30 Laboratory Results Laboratory Results - last 24 hr 02/04/20 02/05/20 02/05/20 11:22 05:32 05:32 WBC RBC Hgb Hct MCV MCH MCHC RDW Std Deviation RDW Coeff of Angel Plt Count MPV PT 12.2 H INR 1.2 H APTT 62.1 H* 47.6 H* PTT Ratio 2.2 1.7 Sodium 141 Potassium 3.8 D Chloride 108 H Carbon Dioxide 29 Anion Gap 4.0 BUN 11 Creatinine 0.70 Est Cr Clr Drug Dosing 46.0 Est GFR ( Amer) 90.3 Est GFR (Non-Af Amer) 77.9 BUN/Creatinine Ratio 15.3 Glucose 142 H Calcium 9.3 02/05/20 05:32 WBC 6.80 RBC 4.22 Hgb 12.4 Hct 38.0 MCV 90.0 MCH 29.4 MCHC 32.6 RDW Std Deviation 42.6 RDW Coeff of Angel 13.1 Plt Count 178 MPV 9.8 PT INR APTT PTT Ratio Sodium Potassium Chloride Carbon Dioxide Anion Gap BUN Creatinine Est Cr Clr Drug Dosing Est GFR ( Amer) Est GFR (Non-Af Amer) BUN/Creatinine Ratio Glucose Calcium Medications Administered Current Inpatient Medications Acetaminophen (Tylenol) 650 mg PO Q4H PRN PRN Reason: Pain or Fever Stop: 03/03/20 18:54 Famotidine (Pepcid) 20 mg PO HS [facility] Stop: 03/03/20 20:59 Last Admin: 02/04/20 19:57 Dose: 20 mg Documented by: Heparin Sodium/Dextrose (Heparin Sodium/Dextrose) 25,000 units in 500 mls @ 17 mls/hr IV .Q24H [facility]; Protocol Stop: 03/03/20 13:44 Last Titration: 02/05/20 06:53 Dose: 850 units/hr, 17 mls/hr Documented by: Lisinopril (Zestril) 2.5 mg PO QAM [facility] Stop: 03/07/20 08:59 Methimazole (Tapazole) 15 mg PO BID [facility] Stop: 03/03/20 20:59 Last Admin: 02/05/20 08:45 Dose: 15 mg Documented by: Metoprolol Tartrate (Lopressor) 5 mg IV Q6 PRN PRN Reason: Tachycardia Stop: 03/03/20 18:54 Last Admin: 02/05/20 05:04 Dose: 5 mg Documented by: Metoprolol Tartrate (Lopressor) 50 mg PO QID [facility] Stop: 03/06/20 12:59 Multivitamins (Multivitamin Tab) 1 tab PO DAILY [facility] Stop: 03/04/20 08:59 Last Admin: 02/05/20 08:45 Dose: 1 tab Documented by: Pantoprazole Sodium (Protonix) 40 mg PO DAILY [facility] Stop: 03/04/20 08:59 Last Admin: 02/05/20 08:46 Dose: 40 mg Documented by: Potassium Chloride (Klor-Con M20) 40 meq PO QAM [facility] Stop: 03/04/20 10:59 Last Admin: 02/05/20 08:45 Dose: 40 meq Documented by: Vitamin D (Vitamin D3) 1,000 units PO DAILY [facility] Stop: 03/04/20 08:59 Last Admin: 02/05/20 08:46 Dose: 1,000 units Documented by: Warfarin Sodium (Coumadin) 5 mg PO DAILY@1600 [facility] Stop: 03/05/20 15:59 Last Admin: 02/04/20 15:53 Dose: 5 mg Documented by:
--- NOTE | 2020-02-05 11:13 | Hospitalist Progress Note ---
Date of Service February 05, 2020 Assessment & Plan (1) Fluid overload: (2) Acute systolic heart failure: (3) Atrial fibrillation with RVR: 89 y/o F with PMH HTN, GERD, Thyroid nodules presented to ER with c/o palpitations x 10-14 days. Was also having exertional SOB, however increased SOB past 3 days. Last 3 days noticed BLE edema. Denies CP, dizziness, syncope In ER afebrile, HR: 126, (146 on EKG), R: 20, BP: 119/74, 96% on RA. A-fib RVR on EKG, negative troponin. TSH<0.005, magnesium 1.9, no other significant electrolyte abnormality In ER given Cardizem 10mg followed by Cardizem drip at 5mg/hr with HR in low 100's and pt reporting no further palpitations and feels less SOB Off cardizem drip Rfp Writer recommendations noted Metoprolol increased to total day dose of 200mg to optimize rate control Continue prn iv lopressor Currently on heparin drip. Started on warfarin INR is 1.2 today Acute systolic heart failure likely due to Afib in the setting of hyperthyroidism Echo result noted. EF 40-45% Discussed case with manager credit Currently euvolemic. Started on lisinopril 2.5mg (4) Hyperthyroidism: Pt had abnormal TSH with levels <0.01 in 08/2019. Was found to have bilateral thyroid nodules on thyroid US in 09/2019 and it was recommended to have FNA however pt states did not have completed. She has appointment with [facility] endocrinology in December 2019, however appointment was rescheduled to Feb [address] Evangelista spoke with Dr Abdullahi, [facility] endocrinology who recommended starting methimazole 15mg BID Keep scheduled outpatient endocrinology follow up, no further work up while inpt recommended Cont methimazole 15 mg BID (5) HTN (hypertension): BP currently stable Continue lisinopril and monitor BP (6) GERD (gastroesophageal reflux disease): Continue PPI, H2 brown (7) Hypokalemia Resolved K is 3.8 this AM DVT Prophylaxis On Heparin IV, started coumadin Get PT katie Pt has close friend and neighbor, Sharon Anton, at [phone]. She helps care for pt and takes pt to her doctor appointments. Most of pt's family do not live in [facility]. Pt does have son, Franco Cho at [phone] who lives in [place], however is not in contact with pt for past several years. Full Code as per discussion with pt Follows with Dr Lowe for routine care Admission and Anticipated Discharge Date Admission Date: February 02, 2020 Subjective Patient seen and examined Had no complaints today Denied any palpitations, chest pain, shortness of breath, cough Physical Exam Constitutional: + well hydrated; no acute distress Elderly woman Eyes: PERRL, conjunctivae normal, anicteric sclerae ENMT: external ear and nose normal, oropharynx normal Respiratory: normal respiratory effort, lungs clear to auscultation Cardiovascular: Rate/Rhythm: + tachycardic Extremities: no pedal edema Pulse is irregularly irregular Gastrointestinal (Abdomen): normal bowel sounds, soft, nontender, no hepatosplenomegaly Neurologic: PERRL, EOMI, accommodation nl, no face palsy, no dysarthria Psychiatric: A+Ox3, euthymic affect Results & Data Results & Data ([facility]) Vital Signs (Past 12 Hours) Vital Signs Temp Pulse Pulse Pulse Resp BP BP 02/05/20 08:40 120 H 115/80 02/05/20 08:00 110 H 02/05/20 07:09 36.5 C 101 H 18 97/77 L 02/05/20 05:04 122 H 110/56 L 02/05/20 05:00 122 H 110/56 L 02/05/20 03:26 36.9 C 112 H 18 112/78 02/05/20 00:31 91 H 103/71 02/04/20 23:58 122 H 106/66 02/04/20 23:30 116 H Pulse Ox 02/05/20 08:40 02/05/20 08:00 02/05/20 07:09 94 02/05/20 05:04 02/05/20 05:00 02/05/20 03:26 94 02/05/20 00:31 02/04/20 23:58 02/04/20 23:30 Laboratory Results Laboratory Results - last 24 hr 02/04/20 02/05/20 02/05/20 11:22 05:32 05:32 WBC RBC Hgb Hct MCV MCH MCHC RDW Std Deviation RDW Coeff of Angel Plt Count MPV PT 12.2 H INR 1.2 H APTT 62.1 H* 47.6 H* PTT Ratio 2.2 1.7 Sodium 141 Potassium 3.8 D Chloride 108 H Carbon Dioxide 29 Anion Gap 4.0 BUN 11 Creatinine 0.70 Est Cr Clr Drug Dosing 46.0 Est GFR ( Amer) 90.3 Est GFR (Non-Af Amer) 77.9 BUN/Creatinine Ratio 15.3 Glucose 142 H Calcium 9.3 02/05/20 05:32 WBC 6.80 RBC 4.22 Hgb 12.4 Hct 38.0 MCV 90.0 MCH 29.4 MCHC 32.6 RDW Std Deviation 42.6 RDW Coeff of Angel 13.1 Plt Count 178 MPV 9.8 PT INR APTT PTT Ratio Sodium Potassium Chloride Carbon Dioxide Anion Gap BUN Creatinine Est Cr Clr Drug Dosing Est GFR ( Amer) Est GFR (Non-Af Amer) BUN/Creatinine Ratio Glucose Calcium
[2020-02-05] MEDS: WARFARIN SOD 5 MG TAB PO SCH (16:51)
[2020-02-05] MEDS: HEPARIN SODIUM/DEXTROSE 25,000 UNITS/500 ML BAG IV SCH (19:07)
[2020-02-05] MEDS: FAMOTIDINE 20 MG TAB PO SCH (20:17)
[2020-02-06] MEDS: METOPROLOL TARTRATE 1 MG/ML VIAL IV PRN (05:05)
[2020-02-06 05:59] LABS: Hematocrit (blood only) 39.3 % (37-47); Hemoglobin 12.6 g/dL (12.0-16.0); Mean Corpuscular Hemoglobin 28.9 pg (25-34); Mean Corpuscular Hgb Conc 32.1 g/dL (32-36); Mean Corpuscular Volume 90.1 fL (80-100); Mean Platelet Volume 10.4 fL (7.4-10.4); Platelet Count 193 K/uL (130-400); RDW Coefficient of Variation 13.1 % (11.5-14.5); RDW Standard Deviation 42.8 fL (36.4-46.3); Red Blood Count 4.36 M/uL (4.2-5.4); White Blood Count 6.86 K/uL (4.8-10.8)
[2020-02-06 06:24] LABS: INR 1.2 (0.9-1.1); Partial Thromboplastin Ratio 1.7; Prothrombin Time 12.2 Seconds (9.0-12.0)
[2020-02-06 06:25] LABS: Partial Thromboplastin Time 47.1 Seconds (21.0-31.0)
[2020-02-06 06:38] LABS: BUN Creatinine Ratio 22.9 (10-20); Calcium 9.3 mg/dl (8.5-10.1); Creatinine Clr Calc Pharmacy 44.5 ml/min; Est GFR (African American) 85.8; Est GFR (Non-African American) 74.1; Potassium 4.3 mmol/L (3.5-5.1)
[2020-02-06] MEDS: POTASSIUM CHLORIDE 20 MEQ TABCR PO SCH (08:38)
[2020-02-06] MEDS: METOPROLOL TARTRATE 50 MG TAB PO SCH ×4 (08:38→20:27)
[2020-02-06] MEDS: PANTOprazole 40 MG TAB PO SCH (08:38)
[2020-02-06] MEDS: methIMAzole 5 MG TABLET PO SCH ×2 (08:39→20:26)
[2020-02-06] MEDS: MULTIVITAMIN TAB PO SCH (08:39)
[2020-02-06] MEDS: CHOLECALCIFEROL 1,000 UNITS 25 MCG TAB PO SCH (08:39)
--- NOTE | 2020-02-06 09:25 | Cardiology Progress Note ---
Date of Service February 06, 2020 Assessment & Plan (1) Hyperthyroidism: (2) Atrial fibrillation with RVR: Despite 200 mg metoprolol daily, the patient's heart rates remain high. I will add diltiazem 30 mg 3 times daily to her medical regiment. Further evaluation and treatment following the above. Subjective The patient remains in good spirits. She denies shortness of breath, dizziness, or chest pain. Review of Systems Review of Systems: All systems reviewed & are unremarkable except as noted in HPI & below Nothing additional to add. Physical Exam Physical Exam: General: no acute distress and stated age Head: normocephalic, no masses, lesions, tenderness or abnormalities Eyes: conjunctiva are pink and non-injected, sclera clear Neck: supple, no adenopathy, no bruits, normal jugular venous pulse, no hepatojugular reflux Chest: normal shape and normal respiratory effort Lungs: clear to auscultation and percussion Cardiac Exam: - irregular rate & rhythm, no murmurs gallops or rubs - normal S1, normal S2 Pulses: 2(+) throughout Abdomen: abdomen soft, non-tender, no abnormal masses and no hepatosplenomegaly Musculoskeletal: no gait disturbance, no joint inflammation, no deforming arthritis Extremities: no edema and no cyanosis Neuro: grossly normal exam Results & Data Vital Signs (Past 12 Hours) Vital Signs Temp Pulse Pulse Pulse Pulse Resp BP 02/06/20 07:28 36.6 C 115 H 19 02/06/20 05:46 115 H 02/06/20 05:05 125 H 110/78 02/06/20 05:00 125 H 02/06/20 03:51 36.3 C L 118 H 17 02/06/20 00:56 119 H 02/05/20 23:16 37.0 C 120 H 18 02/05/20 22:00 122 H 113/78 BP BP Pulse Ox 02/06/20 07:28 123/79 96 02/06/20 05:46 121/75 02/06/20 05:05 02/06/20 05:00 110/78 02/06/20 03:51 115/77 98 02/06/20 00:56 02/05/20 23:16 108/72 95 02/05/20 22:00 Laboratory Results Current Inpatient Medications Acetaminophen (Tylenol) 650 mg PO Q4H PRN PRN Reason: Pain or Fever Stop: 03/03/20 18:54 Diltiazem HCl (Cardizem) 30 mg PO TID [facility] Stop: 03/07/20 09:24 Famotidine (Pepcid) 20 mg PO HS [facility] Stop: 03/03/20 20:59 Last Admin: 02/05/20 20:17 Dose: 20 mg Documented by: Heparin Sodium/Dextrose (Heparin Sodium/Dextrose) 25,000 units in 500 mls @ 17 mls/hr IV .Q24H [facility]; Protocol Stop: 03/03/20 13:44 Last Titration: 02/06/20 06:53 Dose: 850 units/hr, 17 mls/hr Documented by: Lisinopril (Zestril) 2.5 mg PO QAM [facility] Stop: 03/07/20 08:59 Last Admin: 02/06/20 08:39 Dose: 2.5 mg Documented by: Methimazole (Tapazole) 15 mg PO BID [facility] Stop: 03/03/20 20:59 Last Admin: 02/06/20 08:39 Dose: 15 mg Documented by: Metoprolol Tartrate (Lopressor) 5 mg IV Q6 PRN PRN Reason: Tachycardia Stop: 03/03/20 18:54 Last Admin: 02/06/20 05:05 Dose: 5 mg Documented by: Metoprolol Tartrate (Lopressor) 50 mg PO QID [facility] Stop: 03/06/20 12:59 Last Admin: 02/06/20 08:38 Dose: 50 mg Documented by: Multivitamins (Multivitamin Tab) 1 tab PO DAILY [facility] Stop: 03/04/20 08:59 Last Admin: 02/06/20 08:39 Dose: 1 tab Documented by: Pantoprazole Sodium (Protonix) 40 mg PO DAILY [facility] Stop: 03/04/20 08:59 Last Admin: 02/06/20 08:38 Dose: 40 mg Documented by: Potassium Chloride (Klor-Con M20) 40 meq PO QAM [facility] Stop: 03/04/20 10:59 Last Admin: 02/06/20 08:38 Dose: 40 meq Documented by: Vitamin D (Vitamin D3) 1,000 units PO DAILY [facility] Stop: 03/04/20 08:59 Last Admin: 02/06/20 08:39 Dose: 1,000 units Documented by: Warfarin Sodium (Coumadin) 5 mg PO DAILY@1600 [facility] Stop: 03/05/20 15:59 Last Admin: 02/05/20 16:51 Dose: 5 mg Documented by: Medications Administered Current Inpatient Medications Acetaminophen (Tylenol) 650 mg PO Q4H PRN PRN Reason: Pain or Fever Stop: 03/03/20 18:54 Diltiazem HCl (Cardizem) 30 mg PO TID [facility] Stop: 03/07/20 09:24 Famotidine (Pepcid) 20 mg PO HS [facility] Stop: 03/03/20 20:59 Last Admin: 02/05/20 20:17 Dose: 20 mg Documented by: Heparin Sodium/Dextrose (Heparin Sodium/Dextrose) 25,000 units in 500 mls @ 17 mls/hr IV .Q24H [facility]; Protocol Stop: 03/03/20 13:44 Last Titration: 02/06/20 06:53 Dose: 850 units/hr, 17 mls/hr Documented by: Lisinopril (Zestril) 2.5 mg PO QAM [facility] Stop: 03/07/20 08:59 Last Admin: 02/06/20 08:39 Dose: 2.5 mg Documented by: Methimazole (Tapazole) 15 mg PO BID [facility] Stop: 03/03/20 20:59 Last Admin: 02/06/20 08:39 Dose: 15 mg Documented by: Metoprolol Tartrate (Lopressor) 5 mg IV Q6 PRN PRN Reason: Tachycardia Stop: 03/03/20 18:54 Last Admin: 02/06/20 05:05 Dose: 5 mg Documented by: Metoprolol Tartrate (Lopressor) 50 mg PO QID [facility] Stop: 03/06/20 12:59 Last Admin: 02/06/20 08:38 Dose: 50 mg Documented by: Multivitamins (Multivitamin Tab) 1 tab PO DAILY [facility] Stop: 03/04/20 08:59 Last Admin: 02/06/20 08:39 Dose: 1 tab Documented by: Pantoprazole Sodium (Protonix) 40 mg PO DAILY [facility] Stop: 03/04/20 08:59 Last Admin: 02/06/20 08:38 Dose: 40 mg Documented by: Potassium Chloride (Klor-Con M20) 40 meq PO QAM [facility] Stop: 03/04/20 10:59 Last Admin: 02/06/20 08:38 Dose: 40 meq Documented by: Vitamin D (Vitamin D3) 1,000 units PO DAILY [facility] Stop: 03/04/20 08:59 Last Admin: 02/06/20 08:39 Dose: 1,000 units Documented by: Warfarin Sodium (Coumadin) 5 mg PO DAILY@1600 [facility] Stop: 03/05/20 15:59 Last Admin: 02/05/20 16:51 Dose: 5 mg Documented by:
[2020-02-06] MEDS: dilTIAZem HCL 30 MG TAB PO SCH ×3 (10:29→20:26)
--- NOTE | 2020-02-06 12:30 | Hospitalist Progress Note ---
Date of Service February 06, 2020 Assessment & Plan (1) Fluid overload: (2) Acute systolic heart failure: (3) Atrial fibrillation with RVR: 89 y/o F with PMH HTN, GERD, Thyroid nodules presented to ER with c/o palpitations x 10-14 days. Was also having exertional SOB, however increased SOB past 3 days. Last 3 days noticed BLE edema. Denies CP, dizziness, syncope In ER afebrile, HR: 126, (146 on EKG), R: 20, BP: 119/74, 96% on RA. A-fib RVR on EKG, negative troponin. TSH<0.005, magnesium 1.9, no other significant electrolyte abnormality In ER given Cardizem 10mg followed by Cardizem drip at 5mg/hr with HR in low 100's and pt reporting no further palpitations and feels less SOB Off cardizem drip Gold Stamper recommendations noted Still poorly rate controlled even on metoprolol 200mg Cardizem po added today Currently on heparin drip to coumadin bridge INR is still 1.2 today Acute systolic heart failure likely due to Afib in the setting of hyperthyroidism Echo result noted. EF 40-45% Discussed case with cheese production supervisor Currently euvolemic. Continue lisinopril 2.5mg (4) Hyperthyroidism: Pt had abnormal TSH with levels <0.01 in 08/2019. Was found to have bilateral thyroid nodules on thyroid US in 09/2019 and it was recommended to chavez ve FNA however pt states did not have completed. She has appointment with [facility] endocrinology in December 2019, however appointment was rescheduled to Feb [address] Evangelista spoke with Dr Abdullahi, [facility] endocrinology who recommended starting methimazole 15mg BID Keep scheduled outpatient endocrinology follow up, no further work up while inpt recommended Cont methimazole 15 mg BID (5) HTN (hypertension): BP currently stable Continue lisinopril and monitor BP (6) GERD (gastroesophageal reflux disease): Continue PPI, H2 brown (7) Hypokalemia Resolved K is 4.3 this AM DVT Prophylaxis On Heparin IV, started coumadin Planned to be discharged to [facility] once medically optimize Once rate controlled, may be discharged to [facility] to continue possible lovenox to coumadin bridge Will need anticoagulation clinic set up on discharge Pt has close friend and neighbor, Sharon Anton, at [phone]. She helps care for pt and takes pt to her doctor appointments. Most of pt's family do not live in [facility]. Pt does have son, Franco Cho at [phone] who lives in [place], however is not in contact with pt for past several years. Full Code as per discussion with pt Follows with Dr Lowe for routine care Admission and Anticipated Discharge Date Admission Date: February 02, 2020 Subjective Patient seen and examined. Reported palpitations earlier today after using the bathroom. This resolved morales rtly after Denied any chest pain, shortness of breath, dyspnea on exertion Denied any hematemesis, melena, hemoptysis, hematochezia Denied any nausea, vomiting, diarrhea or abd pain Physical Exam Constitutional: + well hydrated; no acute distress Eyes: PERRL, conjunctivae normal, anicteric sclerae ENMT: external ear and nose normal, oropharynx normal Respiratory: normal respiratory effort, lungs clear to auscultation Cardiovascular: Rate/Rhythm: + tachycardic Extremities: no pedal edema Gastrointestinal (Abdomen): normal bowel sounds, soft, nontender, no hepatosplenomegaly Musculoskeletal: no cyanosis or clubbing, extremities motor strength 5/5 Neurologic: PERRL, EOMI, accommodation nl, no face palsy, no dysarthria Psychiatric: A+Ox3, euthymic affect Results & Data Results & Data ([facility]) Vital Signs (Past 12 Hours) Vital Signs Temp Pulse Pulse Pulse Pulse Resp BP 02/06/20 11:07 36.7 C 117 H 19 02/06/20 07:28 36.6 C 115 H 19 02/06/20 05:46 115 H 02/06/20 05:05 125 H 110/78 02/06/20 05:00 125 H 02/06/20 03:51 36.3 C L 118 H 17 02/06/20 00:56 119 H BP BP Pulse Ox 02/06/20 11:07 115/78 96 02/06/20 07:28 123/79 96 02/06/20 05:46 121/75 02/06/20 05:05 02/06/20 05:00 110/78 02/06/20 03:51 115/77 98 02/06/20 00:56 Laboratory Results Laboratory Results - last 24 hr 02/06/20 02/06/2020 05:30 05:30 05:30 WBC 6.86 RBC 4.36 Hgb 12.6 Hct 39.3 MCV 90.1 MCH 28.9 MCHC 32.1 RDW Std Deviation 42.8 RDW Coeff of Angel 13.1 Plt Count 193 MPV 10.4 PT 12.2 H INR 1.2 H APTT 47.1 H* PTT Ratio 1.7 Sodium 141 Potassium 4.3 Chloride 109 H Carbon Dioxide 26 Anion Gap 6.0 BUN 17 D Creatinine 0.73 Est Cr Clr Drug Dosing 44.5 Est GFR ( Amer) 85.8 Est GFR (Non-Af Amer) 74.1 BUN/Creatinine Ratio 22.9 H Glucose 136 H Calcium 9.3
[2020-02-06] MEDS: WARFARIN SOD 5 MG TAB PO SCH (17:59)
[2020-02-06] MEDS: FAMOTIDINE 20 MG TAB PO SCH (20:27)
[2020-02-07] MEDS: HEPARIN SODIUM/DEXTROSE 25,000 UNITS/500 ML BAG IV SCH ×2 (02:02→14:00)
[2020-02-07 07:43] LABS: Hematocrit (blood only) 37.8 % (37-47); Hemoglobin 12.5 g/dL (12.0-16.0); Mean Corpuscular Hemoglobin 29.6 pg (25-34); Mean Corpuscular Hgb Conc 33.1 g/dL (32-36); Mean Corpuscular Volume 89.4 fL (80-100); Mean Platelet Volume 10.6 fL (7.4-10.4); Platelet Count 170 K/uL (130-400); RDW Standard Deviation 42.3 fL (36.4-46.3); Red Blood Count 4.23 M/uL (4.2-5.4); White Blood Count 6.18 K/uL (4.8-10.8)
[2020-02-07 08:09] LABS: INR 1.3 (0.9-1.1); Partial Thromboplastin Ratio 1.8; Prothrombin Time 13.2 Seconds (9.0-12.0)
[2020-02-07 08:18] LABS: Partial Thromboplastin Time 51.6 Seconds (21.0-31.0)
[2020-02-07 08:21] LABS: BUN Creatinine Ratio 22.4 (10-20); Calcium 8.8 mg/dl (8.5-10.1); Creatinine Clr Calc Pharmacy 43.5 ml/min; Est GFR (African American) 84.4; Est GFR (Non-African American) 72.8
[2020-02-07] MEDS: METOPROLOL TARTRATE 50 MG TAB PO SCH ×4 (08:38→20:08)
[2020-02-07] MEDS: POTASSIUM CHLORIDE 20 MEQ TABCR PO SCH (08:38)
[2020-02-07] MEDS: dilTIAZem HCL 30 MG TAB PO SCH ×3 (08:38→20:08)
[2020-02-07] MEDS: methIMAzole 5 MG TABLET PO SCH ×2 (08:38→20:08)
[2020-02-07] MEDS: PANTOprazole 40 MG TAB PO SCH (08:38)
[2020-02-07] MEDS: MULTIVITAMIN TAB PO SCH (08:38)
[2020-02-07] MEDS: CHOLECALCIFEROL 1,000 UNITS 25 MCG TAB PO SCH (08:39)
--- NOTE | 2020-02-07 09:47 | Hospitalist Progress Note ---
Date of Service February 07, 2020 Assessment & Plan (1) Fluid overload: (2) Acute systolic heart failure: (3) Atrial fibrillation with RVR: 89 y/o F with PMH HTN, GERD, Thyroid nodules presented to ER with c/o palpitations x 10-14 days. Was also having exertional SOB, however increased SOB past 3 days. Last 3 days noticed BLE edema. Denies CP, dizziness, syncope In ER afebrile, HR: 126, (146 on EKG), R: 20, BP: 119/74, 96% on RA. A-fib RVR on EKG, negative troponin. TSH<0.005, magnesium 1.9, no other significant electrolyte abnormality In ER given Cardizem 10mg followed by Cardizem drip at 5mg/hr with HR in low 100's and pt reporting no further palpitations and feels less SOB Off cardizem drip Director Of Valuation recommendations noted Still poorly rate controlled Continue metoprolol tartarate 50 QID Continue cardizem po. Currently on 30mg TID Currently on heparin drip to coumadin bridge INR is still 1.3 today Acute systolic heart failure likely due to Afib in the setting of hyperthyroidism Echo result noted. EF 40-45% Discussed case with floor worker transfer bay Currently euvolemic. Continue lisinopril 2.5mg (4) Hyperthyroidism: Pt had abnormal TSH with levels <0.01 in 08/2019. Was found to have leslie ateral thyroid nodules on thyroid US in 09/2019 and it was recommended to have FNA however pt states did not have completed. She has appointment with [facility] endocrinology in December 2019, however appointment was rescheduled to Feb [address] Evangelista spoke with Dr Abdullahi, [facility] endocrinology who recommended starting methimazole 15mg BID Keep scheduled outpatient endocrinology follow up, no further work up while inpt recommended Cont methimazole 15 mg BID (5) HTN (hypertension): BP currently stable Continue lisinopril and monitor BP (6) GERD (gastroesophageal reflux disease): Continue PPI, H2 brown (7) Hypokalemia Resolved K is 4.0 this AM DVT Prophylaxis On Heparin IV, started coumadin Planned to be discharged to [facility] once medically optimize Once rate controlled, may be discharged to [facility] to continue possible lovenox to coumadin bridge Will need anticoagulation clinic set up on discharge Pt has close friend and neighbor, Sharon Anton, at [phone]. She helps care for pt and takes pt to her doctor appointments. Most of pt's family do not live in [facility]. Pt does have son, Franco Cho at [phone] who lives in [place], however is not in contact with pt for past several years. Full Code as per discussion with pt Follows with Dr Lowe for routine care Admission and Anticipated Discharge Date Admission Date: February 02, 2020 Subjective Patient seen and examined Has no complaints today Physical Exam Constitutional: + well hydrated; no acute distress Eyes: PERRL, conjunctivae normal, anicteric sclerae ENMT: external ear and nose normal, oropharynx normal Respiratory: normal respiratory effort, lungs clear to auscultation Cardiovascular: Rate/Rhythm: + tachycardic and + irregularly irregular Extremities: no pedal edema and no edema Gastrointestinal (Abdomen): normal bowel sounds, soft, nontender, no hepatosplenomegaly Musculoskeletal: no cyanosis or clubbing, extremities motor strength 5/5 Neurologic: PERRL, EOMI, accommodation nl, no face palsy, no dysarthria Psychiatric: A+Ox3, euthymic affect Results & Data Results & Data ([facility]) Vital Signs (Past 12 Hours) Vital Signs Temp Pulse Resp BP Pulse Ox 02/07/20 07:25 36.7 C 111 H 18 110/81 92 02/07/20 04:01 36.8 C 107 H 18 109/65 97 02/06/20 23:57 36.5 C 116 H 16 112/76 98 Laboratory Results Laboratory Results - last 24 hr 02/07/20 02/07/20 02/07/20 07:17 07:17 07:35 WBC 6.18 RBC 4.23 Hgb 12.5 Hct 37.8 MCV 89.4 MCH 29.6 MCHC 33.1 RDW Std Deviation 42.3 RDW Coeff of Angel 13.0 Plt Count 170 MPV 10.6 H PT 13.2 H INR 1.3 H APTT 51.6 H* PTT Ratio 1.8 Sodium 140 Potassium 4.0 Chloride 107 Carbon Dioxide 28 Anion Gap 4.0 BUN 17 Creatinine 0.74 Est Cr Clr Drug Dosing 43.5 Est GFR ( Amer) 84.4 Est GFR (Non-Af Amer) 72.8 BUN/Creatinine Ratio 22.4 H Glucose 122 H Calcium 8.8
--- NOTE | 2020-02-07 11:55 | Cardiology Progress Note ---
Date of Service February 07, 2020 Assessment & Plan (1) Atrial fibrillation with RVR: (2) Hyperthyroidism: 89-year-old female who presented with complaint of palpitations and has been found to have atrial fibrillation with rapid ventricular response. For symptoms, it would appear that the atrial fibrillation was new, however given her echocardiographic findings of mild left ventricular systolic dysfunction and severe biatrial enlargement as well as mitral regurgitation tricuspid regurgitation, and suggest that perhaps this is a chronic problem. Continue medical therapy for hypothyroidism as managed by the primary service. She is 89 years old, I think we should give time for the current medications to take effect rather than titrating anything today. Continue oral diltiazem 30 mg 3 times daily, oral metoprolol tartrate 50 mg 4 times daily, with holds for heart rate and blood pressure parameters. In terms of stroke prophylaxis: Patient is on a heparin bridge. Today will be her fourth dose of Coumadin 5 mg, and her INR is 1.3. Continue with heparin bridge until INR greater than or equal to 2. My impression is that her exam is suggestive of euvolemic state at present, no need for diuretics today. Subjective Chief complaint: Follow-up atrial fibrillation Subjective: Patient feeling well. Denies any sensation of feeling like her heart rate is elevated. Telemetry reveals ongoing atrial fibrillation with rate of 118 bpm. Review of Systems Review of Systems: All systems reviewed & are unremarkable except as noted in HPI & below Physical Exam Physical Exam: Temp Pulse Resp BP Pulse Ox 36.5 C 96 H 17 99/56 L 96 02/07/20 11:20 02/07/20 11:20 02/07/20 11:20 02/07/20 11:20 02/07/20 11:20 Constitutional: WD/WN, vitals as above Respiratory: normal respiratory effort, lungs clear to auscultation Cardiovascular: Rate/Rhythm: + irregularly irregular Heart Sounds: + murmur (I/ systolic murmur heard best at left apex) Vessels: no JVD Gastrointestinal (Abdomen): normal bowel sounds, soft, nontender, no hepatosplenomegaly Neurologic: PERRL, EOMI, accommodation nl, no face palsy, no dysarthria Results & Data Vital Signs (Past 12 Hours) Vital Signs Temp Pulse Resp BP BP Pulse Ox 02/07/20 11:20 36.5 C 96 H 17 99/56 L 96 02/07/20 07:25 36.7 C 111 H 18 110/81 92 02/07/20 04:01 36.8 C 107 H 18 109/65 97 02/06/20 23:57 36.5 C 116 H 16 112/76 98 Laboratory Results Coagulation 02/07/20 Range/Units 07:35 PT 13.2 H (9.0-12.0) Seconds APTT 51.6 H* (21.0-31.0) Seconds CBC 02/07/20 Range/Units 07:17 WBC 6.18 (4.8-10.8) K/uL RBC 4.23 (4.2-5.4) M/uL Hgb 12.5 (12.0-16.0) g/dL Hct 37.8 (37-47) % Plt Count 170 (130-400) K/uL Comprehensive Metabolic Panel 02/07/20 Range/Units 07:17 Sodium 140 (136-145) mmol/L Potassium 4.0 (3.5-5.1) mmol/L Chloride 107 (98-107) mmol/L Carbon Dioxide 28 (21-32) mmol/L BUN 17 (7-18) mg/dl Creatinine 0.74 (0.6-1.2) mg/dl Glucose 122 H (70-99) mg/dl Calcium 8.8 (8.5-10.1) mg/dl Intake and Output 02/06/20 02/07/20 02/07/20 22:59 06:59 14:59 Intake Total 412.783 / 1039.967 287.184 / 1039.967 112.483 / 112.483 Balance 412.783 / 1039.967 287.184 / 1039.967 112.483 / 112.483 Intake: IV 212.783 / 299.967 87.184 / 299.967 112.483 / 112.483 HEPARIN SODIUM/DEXTROSE 25,000 212.783 / 299.967 87.184 / 299.967 112.483 / 112.483 units In 500 ml @ 850 UNITS/HR 17 mls/hr IV .Q24H [facility] Rx#: [id number] Oral 200 / 740 200 / 740 Other: Weight 51.4 kg Diagnostic Findings Echocardiogram performed this admission revealed mild left ventricular systolic dysfunction with LVEF of 40 to 45%. Severe left atrial dilatation was present and severe right atrial dilatation was present. Severe mitral regurgitation and moderate to severe tricuspid regurgitation were present. Medications Administered Current Inpatient Medications Acetaminophen (Tylenol) 650 mg PO Q4H PRN PRN Reason: Pain or Fever Stop: 03/03/20 18:54 Diltiazem HCl (Cardizem) 30 mg PO TID [facility] Stop: 03/07/20 09:24 Last Admin: 02/07/20 08:38 Dose: 30 mg Documented by: Famotidine (Pepcid) 20 mg PO HS [facility] Stop: 03/03/20 20:59 Last Admin: 02/06/20 20:27 Dose: 20 mg Documented by: Heparin Sodium/Dextrose (Heparin Sodium/Dextrose) 25,000 units in 500 mls @ 17 mls/hr IV .Q24H [facility]; Protocol Stop: 03/03/20 13:44 Last Titration: 02/07/20 08:39 Dose: 850 units/hr, 17 mls/hr Documented by: Lisinopril (Zestril) 2.5 mg PO QAM [facility] Stop: 03/07/20 08:59 Last Admin: 02/07/20 08:39 Dose: 2.5 mg Documented by: Methimazole (Tapazole) 15 mg PO BID [facility] Stop: 03/03/20 20:59 Last Admin: 02/07/20 08:38 Dose: 15 mg Documented by: Metoprolol Tartrate (Lopressor) 5 mg IV Q6 PRN PRN Reason: Tachycardia Stop: 03/03/20 18:54 Last Admin: 02/06/20 05:05 Dose: 5 mg Documented by: Metoprolol Tartrate (Lopressor) 50 mg PO QID [facility] Stop: 03/06/20 12:59 Last Admin: 02/07/20 08:38 Dose: 50 mg Documented by: Multivitamins (Multivitamin Tab) 1 tab PO DAILY [facility] Stop: 03/04/20 08:59 Last Admin: 02/07/20 08:38 Dose: 1 tab Documented by: Pantoprazole Sodium (Protonix) 40 mg PO DAILY [facility] Stop: 03/04/20 08:59 Last Admin: 02/07/20 08:38 Dose: 40 mg Documented by: Potassium Chloride (Klor-Con M20) 40 meq PO QAM [facility] Stop: 03/04/20 10:59 Last Admin: 02/07/20 08:38 Dose: 40 meq Documented by: Vitamin D (Vitamin D3) 1,000 units PO DAILY [facility] Stop: 03/04/20 08:59 Last Admin: 02/07/20 08:39 Dose: 1,000 units Documented by: Warfarin Sodium (Coumadin) 5 mg PO DAILY@1600 [facility] Stop: 03/05/20 15:59 Last Admin: 02/06/20 17:59 Dose: 5 mg Documented by:
[2020-02-07 14:43] LABS: Appearance Urine Cloudy (Clear); Bilirubin Urine Negative (Negative); Blood Urine 3+ (Negative); Color Urine Amber; Glucose Urine UA Negative (Negative); Ketones Urine Negative (Negative); Leukocyte Esterase Urine Negative (Negative); Nitrite Urine Negative (Negative); Urobilinogen Urine Negative (Negative); pH Urine 7.5 (4.5-7.5)
[2020-02-07 14:47] LABS: Protein Urine 1+ (Negative); Sulfosalicylic Acid Urine Positive (Negative)
[2020-02-07 14:51] LABS: Bacteria Urine Negative (Negative); Mucus Urine Present (None Prsent); RBC Urine >30 /hpf (0-4)
[2020-02-07] MEDS: WARFARIN SOD 5 MG TAB PO SCH (16:47)
[2020-02-07] MEDS: FAMOTIDINE 20 MG TAB PO SCH (20:08)
[2020-02-08 05:30] LABS: Hemoglobin 12.2 g/dL (12.0-16.0); Mean Corpuscular Hemoglobin 29.5 pg (25-34); Mean Corpuscular Volume 89.6 fL (80-100); Mean Platelet Volume 10.2 fL (7.4-10.4); Platelet Count 171 K/uL (130-400); RDW Coefficient of Variation 13.1 % (11.5-14.5); RDW Standard Deviation 42.8 fL (36.4-46.3); Red Blood Count 4.13 M/uL (4.2-5.4); White Blood Count 7.05 K/uL (4.8-10.8)
[2020-02-08 05:48] LABS: BUN Creatinine Ratio 20.9 (10-20); Calcium 8.9 mg/dl (8.5-10.1); Creatinine Clr Calc Pharmacy 41.8 ml/min; Est GFR (African American) 80.5; Est GFR (Non-African American) 69.4; Potassium 4.1 mmol/L (3.5-5.1)
[2020-02-08 05:54] LABS: INR 1.5 (0.9-1.1); Prothrombin Time 15.6 Seconds (9.0-12.0)
[2020-02-08 06:00] LABS: Partial Thromboplastin Time 55.2 Seconds (21.0-31.0)
[2020-02-08] MEDS: HEPARIN SODIUM/DEXTROSE 25,000 UNITS/500 ML BAG IV SCH (06:11)
[2020-02-08] MEDS: METOPROLOL TARTRATE 50 MG TAB PO SCH ×4 (08:35→20:26)
[2020-02-08] MEDS: PANTOprazole 40 MG TAB PO SCH (08:35)
[2020-02-08] MEDS: MULTIVITAMIN TAB PO SCH (08:35)
[2020-02-08] MEDS: POTASSIUM CHLORIDE 20 MEQ TABCR PO SCH (08:35)
[2020-02-08] MEDS: CHOLECALCIFEROL 1,000 UNITS 25 MCG TAB PO SCH (08:36)
[2020-02-08] MEDS: dilTIAZem HCL 30 MG TAB PO SCH (08:36)
[2020-02-08] MEDS: methIMAzole 5 MG TABLET PO SCH ×2 (08:36→20:26)
--- NOTE | 2020-02-08 09:57 | Hospitalist Progress Note ---
Date of Service February 08, 2020 Assessment & Plan (1) Fluid overload: (2) Acute systolic heart failure: (3) Atrial fibrillation with RVR: 89 y/o F with PMH HTN, GERD, Thyroid nodules presented to ER with c/o palpitations x 10-14 days. Was also having exertional SOB, however increased SOB past 3 days. Last 3 days noticed BLE edema. Denies CP, dizziness, syncope In ER afebrile, HR: 126, (146 on EKG), R: 20, BP: 119/74, 96% on RA. A-fib RVR on EKG, negative troponin. TSH<0.005, magnesium 1.9, no other significant electrolyte abnormality In ER given Cardizem 10mg followed by Cardizem drip at 5mg/hr with HR in low 100's and pt reporting no further palpitations and feels less SOB Off cardizem drip Stock Associate recommendations noted Still poorly rate controlled Continue metoprolol tartarate 50 QID Continue cardizem po. Changed to 120mg qAM by Dr Serrano Was on heparin drip to coumadin bridge INR was 1.5 today In view of hematuria, heparin drip was suspended. Hb remains stable. Will get pelvic USS to assess bladder and pelvic structures Monitor urine and Hb Acute systolic heart failure likely due to Afib in the setting of hyperthyroidism Echo result noted. EF 40-45% Discussed case with push bench operator helper Currently euvolemic. Continue lisinopril 2.5mg (4) Hyperthyroidism: Pt had abnormal TSH with levels <0.01 in 08/2019. Was found to have bilateral thyroid nodules on thyroid US in 09/2019 and it was recommended to have FNA however pt states did not have completed. She has appointment with [facility] endocrinology in December 2019, however appointment was rescheduled to Feb [address] Evangelista spoke with Dr Abdullahi, [facility] endocrinology who recommended starting methimazole 15mg BID Keep scheduled outpatient endocrinology follow up, no further work up while inpt recommended Cont methimazole 15 mg BID (5) HTN (hypertension): BP currently stable Continue lisinopril and monitor BP (6) GERD (gastroesophageal reflux disease): Continue PPI, H2 brown (7) Hypokalemia Resolved K is 4.1 this AM DVT Prophylaxis Heparin currently suspended as noted above Planned to be discharged to [facility] once medically optimize Pt has close friend and neighbor, Sharon Anton, at [phone]. She helps care for pt and takes pt to her doctor appointments. Most of pt's family do not live in [facility]. Pt does have son, Franco Cho at [phone] who lives in [place], however is not in contact with pt for past several years. Full Code as per discussion with pt Follows with Dr Lowe for routine care Admission and Anticipated Discharge Date Admission Date: February 02, 2020 Subjective Patient seen and examined Reported she started having bloody urine yesterday. She also reported low abdominal pain this morning which has currently resolved. She described this as "feels like pain you get when you are menstruating" Patient reported she had hysterectomy many years ago. Denied any dizziness, shortness of breath, chest pain, palpitations Physical Exam Constitutional: + well hydrated; no acute distress Eyes: PERRL, conjunctivae normal, anicteric sclerae ENMT: external ear and nose normal, oropharynx normal Respiratory: normal respiratory effort, lungs clear to auscultation Cardiovascular: Rate/Rhythm: + tachycardic and + irregularly irregular Extremities: no pedal edema and no edema Gastrointestinal (Abdomen): normal bowel sounds, soft, nontender, no hepatosplenomegaly Musculoskeletal: no cyanosis or clubbing, extremities motor strength 5/5 Neurologic: PERRL, EOMI, accommodation nl, no face palsy, no dysarthria Psychiatric: A+Ox3, euthymic affect Results & Data Results & Data ([facility]) Vital Signs (Past 12 Hours) Vital Signs Temp Pulse Resp BP Pulse Ox 02/08/20 08:21 37.0 C 107 H 18 116/75 96 02/08/20 04:00 36.4 C L 116 H 18 114/75 97 02/07/20 23:24 36.7 C 101 H 18 110/76 94 Laboratory Results Laboratory Results - last 24 hr 02/07/20 02/08/20 02/08/20 13:25 05:17 05:17 WBC 7.05 RBC 4.13 L Hgb 12.2 Hct 37.0 MCV 89.6 MCH 29.5 MCHC 33.0 RDW Std Deviation 42.8 RDW Coeff of Angel 13.1 Plt Count 171 MPV 10.2 PT 15.6 H INR 1.5 H APTT 55.2 H* PTT Ratio 2.0 Sodium Potassium Chloride Carbon Dioxide Anion Gap BUN Creatinine Est Cr Clr Drug Dosing Est GFR ( Amer) Est GFR (Non-Af Amer) BUN/Creatinine Ratio Glucose Calcium Urine Color Dipika Urine Appearance Cloudy A Urine pH 7.5 Ur Specific Provencal 1.020 Urine Protein 1+ H Urine Glucose (UA) Negative Urine Ketones Negative Urine Blood 3+ H Urine Nitrite Negative Urine Bilirubin Negative Urine Urobilinogen Negative Ur Leukocyte Esterase Negative Urine RBC >30 H Urine WBC 10-30 H Ur Epithelial Cells 5-10 H Urine Bacteria Negative Urine Mucus Present A 02/08/20 05:17 WBC RBC Hgb Hct MCV MCH MCHC RDW Std Deviation RDW Coeff of Angel Plt Count MPV PT INR APTT PTT Ratio Sodium 139 Potassium 4.1 Chloride 109 H Carbon Dioxide 26 Anion Gap 4.0 BUN 16 Creatinine 0.77 Est Cr Clr Drug Dosing 41.8 Est GFR ( Amer) 80.5 Est GFR (Non-Af Amer) 69.4 BUN/Creatinine Ratio 20.9 H Glucose 134 H Calcium 8.9 Urine Color Urine Appearance Urine pH Ur Specific Provencal Urine Protein Urine Glucose (UA) Urine Ketones Urine Blood Urine Nitrite Urine Bilirubin Urine Urobilinogen Ur Leukocyte Esterase Urine RBC Urine WBC Ur Epithelial Cells Urine Bacteria Urine Mucus
--- NOTE | 2020-02-08 11:35 | Cardiology Progress Note ---
Date of Service February 08, 2020 Assessment & Plan (1) Atrial fibrillation with RVR: (2) Hyperthyroidism: Mild LV systolic dysfunction noted on echo as well as severe biatrial enlargement and severe MR, mod to severe TR. Continue metoprolol 50 mg PO QID for rate control. Transition from diltiazem 30 mg PO TID, to Diltiazem DC 120 mg daily. Volume status stable. Due to concerns of hematuria vs vaginal bleeding, DC heparin infusion. INR 1.5 today. Continue cautious coumadin loading. Check INR tomorrow. Continue tapazole. Subjective CC: follow up AF Subjective: No cardiac complaint. No symptoms of AF. Hematuria reported by patient. Heparin gtt already discontinued by primary service. Review of Systems Review of Systems: All systems reviewed & are unremarkable except as noted in HPI & below Physical Exam Physical Exam: Temp Pulse Resp BP Pulse Ox 37.0 C 107 H 18 116/75 96 02/08/20 08:21 02/08/20 08:21 02/08/20 08:21 02/08/20 08:21 02/08/20 08:21 Constitutional: + cachectic Respiratory: normal respiratory effort, lungs clear to auscultation Cardiovascular: Rate/Rhythm: + tachycardic and + irregularly irregular Heart Sounds: + murmur (1/6 SM) Vessels: no JVD Extremities: no edema Gastrointestinal (Abdomen): normal bowel sounds, soft, nontender, no hepatosplenomegaly Neurologic: PERRL, EOMI, accommodation nl, no face palsy, no dysarthria Results & Data Vital Signs (Past 12 Hours) Vital Signs Temp Pulse Resp BP Pulse Ox 02/08/20 08:21 37.0 C 107 H 18 116/75 96 02/08/20 04:00 36.4 C L 116 H 18 114/75 97 Laboratory Results Coagulation 02/08/20 Range/Units 05:17 PT 15.6 H (9.0-12.0) Seconds APTT 55.2 H* (21.0-31.0) Seconds CBC 02/08/20 Range/Units 05:17 WBC 7.05 (4.8-10.8) K/uL RBC 4.13 L (4.2-5.4) M/uL Hgb 12.2 (12.0-16.0) g/dL Hct 37.0 (37-47) % Plt Count 171 (130-400) K/uL Comprehensive Metabolic Panel 02/08/20 Range/Units 05:17 Sodium 139 (136-145) mmol/L Potassium 4.1 (3.5-5.1) mmol/L Chloride 109 H (98-107) mmol/L Carbon Dioxide 26 (21-32) mmol/L BUN 16 (7-18) mg/dl Creatinine 0.77 (0.6-1.2) mg/dl Glucose 134 H (70-99) mg/dl Calcium 8.9 (8.5-10.1) mg/dl Intake and Output 02/07/20 02/08/20 02/08/20 22:59 06:59 14:59 Intake Total 200 / 1141.017 323.417 / 1141.017 16.717 / 16.717 Balance 200 / 1140.017 323.417 / 1140.017 16.717 / 16.717 Intake: IV 273.417 / 491.017 16.717 / 16.717 HEPARIN SODIUM/DEXTROSE 25,000 273.417 / 491.017 16.717 / 16.717 units In 500 ml @ 850 UNITS/HR 17 mls/hr IV .Q24H [facility] Rx#: [id number] Oral 200 / 650 50 / 650 Other: # Unmeasured Voids 1 Weight 52.1 kg
[2020-02-08] MEDS: dilTIAZem HCL 120 MG CAPCR PO SCH (12:17)
--- NOTE | 2020-02-08 14:33 | Ultrasound Report ---
US retro bladder ltd HISTORY: 89 years-old Female HEMATURIA acute hematuria COMPARISON: CT abdomen and pelvis 06/16/2018 TECHNIQUE: Multiple real-time sonographic images of the urinary bladder were obtained assessing doug kelly appearance FINDINGS: Partial distention of the urinary bladder with mild wall thickening. No urothelial lesion or signific ant urinary bladder debris identified. Ureteral jets were not documented. IMPRESSION: Unremarkable sonographic appearance of the urinary bladder. ACT 112: Negative or not required by law. The above report was generated using voice recognition software. It may contain grammatical, syntax o r spelling errors. Electronically signed by: Tyrone Cochran M.D. 02/08/2020 2:32 PM
--- NOTE | 2020-02-08 14:35 | Ultrasound Report ---
US pelvic complete HISTORY: 89 years-old Female Hematuria. Assess bladder/pelvic organs. Acute hematuria with pelvic pa in COMPARISON: Bladder ultrasound of same day, CT abdomen and pelvis 06/16/2018 TECHNIQUE: Multiple real-time sonographic images of the deep pelvic structures were obtained transabd ominally assessing grayscale appearance and color flow FINDINGS: Reported history of complete hysterectomy. Ovaries and uterus are not identified. No adnexal mass les ions or fluid collections. Partial distention of the urinary bladder with mild wall thickening. IMPRESSION: Prior hysterectomy. No adnexal mass lesion identified. ACT 112: Negative or not required by law. The above report was generated using voice recognition software. It may contain grammatical, syntax o r spelling errors. Electronically signed by: Tyrone Cochran M.D. 02/08/2020 2:33 PM
[2020-02-08] MEDS: WARFARIN SOD 5 MG TAB PO SCH (17:34)
[2020-02-08] MEDS: FAMOTIDINE 20 MG TAB PO SCH (20:26)
[2020-02-09 06:55] LABS: Hematocrit (blood only) 37.3 % (37-47); Hemoglobin 12.3 g/dL (12.0-16.0); Mean Corpuscular Hemoglobin 29.9 pg (25-34); Mean Corpuscular Volume 90.5 fL (80-100); Mean Platelet Volume 9.9 fL (7.4-10.4); Platelet Count 183 K/uL (130-400); RDW Coefficient of Variation 13.1 % (11.5-14.5); RDW Standard Deviation 42.9 fL (36.4-46.3); Red Blood Count 4.12 M/uL (4.2-5.4); White Blood Count 6.55 K/uL (4.8-10.8)
[2020-02-09 07:05] LABS: INR 1.6 (0.9-1.1)
[2020-02-09 07:12] LABS: BUN Creatinine Ratio 21.6 (10-20); Calcium 9.1 mg/dl (8.5-10.1); Creatinine Clr Calc Pharmacy 41.2 ml/min; Est GFR (Non-African American) 67.3; Potassium 4.4 mmol/L (3.5-5.1)
[2020-02-09] MEDS: methIMAzole 5 MG TABLET PO SCH ×2 (07:35→21:00)
[2020-02-09] MEDS: MULTIVITAMIN TAB PO SCH (07:35)
[2020-02-09] MEDS: POTASSIUM CHLORIDE 20 MEQ TABCR PO SCH (07:35)
[2020-02-09] MEDS: CHOLECALCIFEROL 1,000 UNITS 25 MCG TAB PO SCH (07:35)
[2020-02-09] MEDS: PANTOprazole 40 MG TAB PO SCH (07:36)
[2020-02-09] MEDS: dilTIAZem HCL 120 MG CAPCR PO SCH ×2 (07:38→09:09)
[2020-02-09] MEDS: METOPROLOL TARTRATE 50 MG TAB PO SCH ×5 (07:38→21:00)
--- NOTE | 2020-02-09 10:09 | Hospitalist Progress Note ---
Date of Service February 09, 2020 Assessment & Plan (1) Fluid overload: (2) Acute systolic heart failure: (3) Atrial fibrillation with RVR: 89 y/o F with PMH HTN, GERD, Thyroid nodules presented to ER with c/o palpitations x 10-14 days. Was also having exertional SOB, however increased SOB past 3 days. Last 3 days noticed BLE edema. Denies CP, dizziness, syncope In ER afebrile, HR: 126, (146 on EKG), R: 20, BP: 119/74, 96% on RA. A-fib RVR on EKG, negative troponin. TSH<0.005, magnesium 1.9, no other significant electrolyte abnormality In ER given Cardizem 10mg followed by Cardizem drip at 5mg/hr with HR in low 100's and pt reporting no further palpitations and feels less SOB Off cardizem drip Rafter Cutting Machine Operator recommendations noted Patient HR was 58 this morning but became quite tachycardic after walking around this morning Currently on metoprolol tartarate 50 QID and cardizem [address] Serrano. Will monitor HR for another day to ensure optimization of rate control meds prior to discharge Hematuria has resolved since suspension of heparin drip Pelvic USS was unremarkable Patient interested in NOAC. Discussed with combat control manager who will look into the cost for patient If agreeable to patient, will start eliquis 2.5mg bid Acute systolic heart failure likely due to Afib in the setting of hyperthyroidism Echo result noted. EF 40-45% Discussed case with special technical operations officer Currently euvolemic. Continue lisinopril 2.5mg (4) Hyperthyroidism: Pt had abnormal TSH with levels <0.01 in 08/2019. Was found to have bilateral thyroid nodules on thyroid US in 09/2019 and it was recommended to have FNA however pt states did not have completed. She has appointment with [facility] endocrinology in December 2019, however appointment was rescheduled to Feb [address] Evangelista spoke with Dr Abdullahi, [facility] endocrinology who recommended starting methimazole 15mg BID Keep scheduled outpatient endocrinology follow up, no further work up while inpt recommended Cont methimazole 15 mg BID (5) HTN (hypertension): BP currently stable Continue lisinopril and monitor BP (6) GERD (gastroesophageal reflux disease): Continue PPI, H2 brown (7) Hypokalemia Resolved K is 4.4 this AM Planned to be discharged to [facility] once medically optimized Pt has close friend and neighbor, Sharon Anton, at [phone]. She helps care for pt and takes pt to her doctor appointments. Most of pt's family do not live in [facility]. Pt does have son, Franco Cho at [phone] who lives in [place], however is not in contact with pt for past several years. Full Code as per discussion with pt Follows with Dr Lowe for routine care Admission and Anticipated Discharge Date Admission Date: February 02, 2020 Subjective Patient seen and examined Patient reports no complaints today Patient reported that she will have problems going for regular INR checks since she does not drive. She stated interest in NOAC if affordable. Physical Exam Constitutional: + well hydrated; no acute distress Eyes: PERRL, conjunctivae normal, anicteric sclerae ENMT: external ear and nose normal, oropharynx normal Respiratory: normal respiratory effort, lungs clear to auscultation Cardiovascular: Rate/Rhythm: regular rate and + irregularly irregular Extremities: no pedal edema and no edema Gastrointestinal (Abdomen): normal bowel sounds, soft, nontender, no hepatosplenomegaly Musculoskeletal: no cyanosis or clubbing, extremities motor strength 5/5 Neurologic: PERRL, EOMI, accommodation nl, no face palsy, no dysarthria Psychiatric: A+Ox3, euthymic affect Results & Data Results & Data ([facility]) Vital Signs (Past 12 Hours) Vital Signs Temp Pulse Resp BP BP Pulse Ox 02/09/20 08:00 37.0 C 58 L 20 110/73 95 02/09/20 04:00 36.6 C 91 H 18 99/65 L 93 Laboratory Results Laboratory Results - last 24 hr 02/09/20 02/09/20 02/09/20 06:40 06:40 06:40 WBC 6.55 RBC 4.12 L Hgb 12.3 Hct 37.3 MCV 90.5 MCH 29.9 MCHC 33.0 RDW Std Deviation 42.9 RDW Coeff of Angel 13.1 Plt Count 183 MPV 9.9 PT 16.0 H INR 1.6 H Sodium 140 Potassium 4.4 Chloride 108 H Carbon Dioxide 27 Anion Gap 5.0 BUN 17 Creatinine 0.79 Est Cr Clr Drug Dosing 41.2 Est GFR ( Amer) 78.0 Est GFR (Non-Af Amer) 67.3 BUN/Creatinine Ratio 21.6 H Glucose 128 H Calcium 9.1
--- NOTE | 2020-02-09 11:13 | Cardiology Progress Note ---
Date of Service February 09, 2020 Assessment & Plan (1) Atrial fibrillation with RVR: The patient is on a significant dose of AV lucinda blockers including metoprolol tartrate 50 mg 4 times daily and diltiazem 120 mg. Rates have been slow for seen this morning as compared to being elevated yeste rday, and with getting out of bed, tachycardia returned. After conclusion of her walk, and administration of her morning medications, her ventricular rate which was 140 bpm with walking, improved to 100 bpm. I think that if her resting heart rate was in the range of 90 to even 110 bpm, we will have made progress. I think we need more time to determine what her best dose of medications is, as I continue to have concern, that as the medication levels reach a steady state in her body, that she may become bradycardic. We will continue her current dose of metoprolol for now, would have low threshol d for transitioning it to 50 twice daily along with diltiazem 120 mg daily. Her INR this morning is 1.6. Patient had expressed interest in diuretic therapy, she is a good candidate for Eliquis 5 mg twice daily, if it is found to be affordable for her. The primary service is going to look into her cost. If affordable, we can simply discontinue her Coumadin, and start her first dose of Eliquis this evening at 9 PM and then 5 mg twice daily thereafter. (2) Hyperthyroidism: Subjective Chief complaint: Follow-up atrial fibrillation Subjective: Patient feeling well this morning. Hematuria has resolved off of heparin. Telemetry revealed that her ventricular rates have been down to the 50s first thing this morning, and therefore her morning medications were initially held. With walking with physical therapy, her ventricular rates climbed to the 130 to 140 bpm range. She was asymptomatic, and she actually look great walking in the hallway. Review of Systems Review of Systems: All systems reviewed & are unremarkable except as noted in HPI & below Physical Exam Physical Exam: Temp Pulse Resp BP Pulse Ox 37.0 C 58 L 20 110/73 95 02/09/20 08:00 02/09/20 08:00 02/09/20 08:00 02/09/20 08:00 02/09/20 08:00 Patient observed walking in the hallway. Gait was relatively stable, no significant dyspnea with exertion. Results & Data Vital Signs (Past 12 Hours) Vital Signs Temp Pulse Pulse Resp BP BP Pulse Ox 02/09/20 08:00 37.0 C 58 L 20 110/73 95 02/09/20 07:00 100 H 02/09/20 04:00 36.6 C 91 H 18 99/65 L 93 Laboratory Results Coagulation 02/09/20 Range/Units 06:40 PT 16.0 H (9.0-12.0) Seconds CBC 02/09/20 Range/Units 06:40 WBC 6.55 (4.8-10.8) K/uL RBC 4.12 L (4.2-5.4) M/uL Hgb 12.3 (12.0-16.0) g/dL Hct 37.3 (37-47) % Plt Count 183 (130-400) K/uL Comprehensive Metabolic Panel 02/09/20 Range/Units 06:40 Sodium 140 (136-145) mmol/L Potassium 4.4 (3.5-5.1) mmol/L Chloride 108 H (98-107) mmol/L Carbon Dioxide 27 (21-32) mmol/L BUN 17 (7-18) mg/dl Creatinine 0.79 (0.6-1.2) mg/dl Glucose 128 H (70-99) mg/dl Calcium 9.1 (8.5-10.1) mg/dl Intake and Output 02/08/20 02/09/20 02/09/20 22:59 06:59 14:59 Intake Total 240 / 496.717 Balance 240 / 496.717 Intake: IV 0 / 16.717 HEPARIN SODIUM/DEXTROSE 25,000 0 / 16.717 units In 500 ml @ 850 UNITS/HR 17 mls/hr IV .Q24H [facility] Rx#: [id number] Oral 240 / 480 Other: Other Intake Source sips Weight 52 kg
[2020-02-09] MEDS: APIXABAN 2.5 MG TAB PO SCH (21:00)
[2020-02-09] MEDS: FAMOTIDINE 20 MG TAB PO SCH (21:00)
[2020-02-10 07:27] LABS: Hematocrit (blood only) 36.7 % (37-47); Mean Corpuscular Hemoglobin 29.6 pg (25-34); Mean Corpuscular Hgb Conc 32.7 g/dL (32-36); Mean Corpuscular Volume 90.4 fL (80-100); Mean Platelet Volume 10.1 fL (7.4-10.4); Platelet Count 182 K/uL (130-400); RDW Standard Deviation 42.8 fL (36.4-46.3); Red Blood Count 4.06 M/uL (4.2-5.4); White Blood Count 6.38 K/uL (4.8-10.8)
[2020-02-10] MEDS: POTASSIUM CHLORIDE 20 MEQ TABCR PO SCH (07:33)
[2020-02-10] MEDS: PANTOprazole 40 MG TAB PO SCH (07:34)
[2020-02-10] MEDS: methIMAzole 5 MG TABLET PO SCH (07:34)
[2020-02-10] MEDS: METOPROLOL TARTRATE 50 MG TAB PO SCH (07:35)
[2020-02-10] MEDS: APIXABAN 2.5 MG TAB PO SCH (07:35)
[2020-02-10 07:36] LABS: INR 1.4 (0.9-1.1); Prothrombin Time 14.8 Seconds (9.0-12.0)
[2020-02-10] MEDS: dilTIAZem HCL 120 MG CAPCR PO SCH (07:36)
[2020-02-10] MEDS: CHOLECALCIFEROL 1,000 UNITS 25 MCG TAB PO SCH (07:36)
[2020-02-10] MEDS: MULTIVITAMIN TAB PO SCH (07:36)
[2020-02-10 08:01] LABS: BUN Creatinine Ratio 22.2 (10-20); Calcium 9.1 mg/dl (8.5-10.1); Creatinine Clr Calc Pharmacy 44.7 ml/min; Est GFR (African American) 85.8; Est GFR (Non-African American) 74.1; Potassium 4.3 mmol/L (3.5-5.1)
--- NOTE | 2020-02-10 10:51 | Cardiology Progress Note ---
Date of Service February 10, 2020 Assessment & Plan (1) Atrial fibrillation with RVR: Mild LV systolic dysfunction noted, severe MR, severe biatrial enlargement. Proceed with rate control, diltiazem CD, 120 mg daily in the morning. Discharged on metoprolol tartrate 50 mg p.o. daily in the a.m., and 100 mg at bedtime. Stroke prophylaxis: Eliquis 2.5 mg twice daily, dose has been adjusted for her age of over 82 years old, and her weight of 52 kg which is less than 60 kg. Volume status stable without diuretic. No additional hematuria. Stable for transfer to SNF for rehab from cardiac perspective. (2) Hyperthyroidism: Continue tapazole. Follow up with endocrine and PCP as outpatient. Subjective Chief complaint: Follow-up tachycardia Subjective: Patient feeling well, telemetry reveals rate controlled atrial fibrillation at rest and 85 bpm. Review of Systems Review of Systems: All systems reviewed & are unremarkable except as noted in HPI & below Physical Exam Physical Exam: Temp Pulse Resp BP Pulse Ox 36.8 C 99 H 17 98/83 L 95 02/10/20 07:59 02/10/20 07:59 02/10/20 07:59 02/10/20 07:59 02/10/20 07:59 Constitutional: WD/WN, vitals as above Respiratory: normal respiratory effort, lungs clear to auscultation Cardiovascular: Rate/Rhythm: + irregularly irregular Heart Sounds: + murmur (1/6 SM) Vessels: no JVD Extremities: no edema Results & Data Vital Signs (Past 12 Hours) Vital Signs Temp Pulse Pulse Pulse Resp BP Pulse Ox 02/10/20 07:59 36.8 C 99 H 17 98/83 L 95 02/10/20 04:00 36.4 C L 95 H 18 101/63 95 02/09/20 23:55 36.4 C L 84 18 98/61 L 96 02/09/20 23:00 83 Laboratory Results Coagulation 02/10/20 INR 1.4 02/10/20 Range/Units 07:15 PT 14.8 H (9.0-12.0) Seconds CBC 02/10/20 Range/Units 07:15 WBC 6.38 (4.8-10.8) K/uL RBC 4.06 L (4.2-5.4) M/uL Hgb 12.0 (12.0-16.0) g/dL Hct 36.7 L (37-47) % Plt Count 182 (130-400) K/uL Comprehensive Metabolic Panel 02/10/20 Range/Units 07:15 Sodium 140 (136-145) mmol/L Potassium 4.3 (3.5-5.1) mmol/L Chloride 108 H (98-107) mmol/L Carbon Dioxide 27 (21-32) mmol/L BUN 16 (7-18) mg/dl Creatinine 0.73 (0.6-1.2) mg/dl Glucose 131 H (70-99) mg/dl Calcium 9.1 (8.5-10.1) mg/dl Intake and Output 02/09/20 02/10/20 02/10/20 22:59 06:59 14:59 Intake Total Balance Intake: Oral Other: # Unmeasured Voids 1 Weight 52.1 kg
--- NOTE | 2020-02-10 17:29 | Discharge Summary ---
Date of Service February 10, 2020 Admission HPI Per Admitting Provider Pt is 89 y/o F with PMH HTN, GERD, Thyroid nodules presented to ER with c/o palpitations x 10-14 days. Was also having exertional SOB, however increased SOB past 3 days. Last 3 days noticed BLE edema. Denies CP, dizziness, syncope. Pt states took her morning meds including her propranolol which she states is on for HTN. Pt had abnormal TSH with levels <0.01 in 08/2019. Was found to have bilateral thyroid nodules on thyroid US in 09/2019 and it was recommended to have FNA however pt states did not have completed. She has appointment with [facility] endocrinology in December 2019, however appointment was rescheduled to February 2020. Drinks 1-2 glasses of wine a day, last drink 2 days ago. Denies caffeine use. Denies fever/chills, diaphoresis, N/V/D/C, NAIR, vision changes, neck pain, cough, sore throat, choking, otalgia, rhinorrhea, abdominal pain, paresthesias, weakness, extremity weakness, rashes, urinary symptoms. Admission Exam Per Admitting Provider General: no distress, WDWN Head: normocephalic, atraumatic Eyes: PERRL, EOM's intact, exophthalmos, conjunctiva non-injected, anicteric ENT: hard of hearing, normal inspection external ears, nose, mucous membranes moist Neck: supple, trachea midline Lungs: clear, no respiratory distress, no wheezing/rhonchi/rales CV: irregularly irregular, no murmur, 1-2+ pitting pretibial edema Abd: normal BS, soft, non-tender Ext: no cyanosis, no calf tenderness Neuro: A&O x 3, no focal deficits noted, normal affect Skin: warm, dry Principal Diagnosis Atrial fibrillation with Rapid ventricular rate Hyperthyroidism Acute systolic heart failure Hypokalemia Discharge Exam Constitutional + well hydrated; no acute distress Eyes PERRL, conjunctivae normal, anicteric sclerae ENMT external ear and nose normal, oropharynx normal Respiratory normal respiratory effort, lungs clear to auscultation Cardiovascular Rate/Rhythm: regular rate and + irregularly irregular Extremities: no pedal edema and no edema Gastrointestinal (Abdomen) normal bowel sounds, soft, nontender, no hepatosplenomegaly Musculoskeletal no cyanosis or clubbing, extremities motor strength 5/5 Neurologic PERRL, EOMI, accommodation nl, no face palsy, no dysarthria Psychiatric A+Ox3, euthymic affect Discharge Data Allergies Allergy/AdvReac Type Severity Reaction Status Date / Time No Known Allergies Allergy Unverified 02/02/20 13:25 Consultations 02/02/20 15:51 ED Decision to Admit Stat 02/02/20 18:55 Consult Cardiology Routine Consult Case Management - Discharge Planning Routine Consult Case Management - Discharge Planning Routine Ordered Studies 02/02/20 14:30 CT angio chest PE protocol Stat FINDINGS: Thyroid: Findings are consistent with multinodular goiter. Coarse calcifications are noted in the left lobe. Thoracic aorta: There is aneurysmal dilatation of the ascending thoracic aorta which measures up to 4.3 cm. The remainder of the thoracic aorta is normal in caliber, and the arch demonstrates standard 3-vessel anatomy. The thoracic aorta is not well opacified. Pulmonary vasculature: The pulmonary trunk is dilated measuring up to 3.2 cm in diameter. This suggests pulmonary artery hypertension. There are no filling defects identified in main, lobar, or segmental pulmonary branches to suggest pulmonary embolus. Heart: The heart is enlarged and without pericardial effusion. Lungs and pleural spaces: There are small to moderate pleural effusions with bibasilar atelectasis. No airspace consolidation is seen typical for pneumonia. There is diffuse intralobular septal thickening as well as peribronchial thickening in the lower lobes. The trachea and central airways are clear. A calcified granuloma is noted in the right upper lobe. 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 Mediastinum: There is no mediastinal lymphadenopathy. Radha: Clear. Axillae: There is no axillary lymphadenopathy. Upper abdomen: Reflux of contrast into the IVC and hepatic veins suggests cardiac dysfunction. Partially visualized upper abdominal viscera is within normal limits. Skeletal structures: The skeletal structures are osteopenic. Mild degenerative change is noted in the shoulders and thoracic spine. No lytic or blastic bony lesions are seen. IMPRESSION: 1. There is no evidence of pulmonary embolus in the main, lobar, or segmental pulmonary arteries. 2. Cardiomegaly with evidence of congestive failure. 3. Small to moderate pleural effusions with associated atelectasis. 4. 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 5. Additional findings as above. 02/08/20 11:02 US pelvic complete Urgent 02/08/20 11:46 US retro bladder ltd Routine Hospital Course (1) Fluid overload: (2) Acute systolic heart failure: (3) Atrial fibrillation with RVR: 89 y/o F with PMH HTN, GERD, Thyroid nodules presented to ER with c/o palpitations x 10-14 days. Was also having exertional SOB, however increased SOB past 3 days. Last 3 days noticed BLE edema. Denies CP, dizziness, syncope In ER afebrile, HR: 126, (146 on EKG), R: 20, BP: 119/74, 96% on RA. A-fib RVR on EKG, negative troponin. TSH<0.005, magnesium 1.9, no other significant electr olyte abnormality In ER given Cardizem 10mg followed by Cardizem drip at 5mg/hr with HR in low 100's and pt reporting no further palpitations and feels less SOB Off cardizem drip [employer] recommendations noted Rate control was optimized Discharged on diltiazem 120mg daily, metoprolol tartarate 50mg qAM and 100mg HS Was initially started on heparin to warfarin bridge. Patient developed hemat uria. Pelvic USS did not show any masses/abnormality Hematuria resolved. Anticoagulation changed to eliquis 2.5mg bid due to patient's concern with transport for regular INR check Needs to follow up with Cardiology outpatient Acute systolic heart failure likely due to Afib in the setting of hyperthyroidism Echo result noted. EF 40-45% Currently euvolemic. Continue lisinopril 2.5mg (4) Hyperthyroidism: Pt had abnormal TSH with levels <0.01 in 08/2019. Was found to have bilateral thyroid nodules on thyroid US in 09/2019 and it was recommended to nair ve FNA however pt states did not have completed. She has appointment with [facility] endocrinology in December 2019, however appointment was rescheduled to Feb [address] Evangelista spoke with Dr Abdullahi, [facility] endocrinology who recommended starting methimazole 15mg BID Keep scheduled outpatient endocrinology follow up, no further work up while inpt recommended Cont methimazole 15 mg BID (5) HTN (hypertension): BP currently stable Continue lisinopril and monitor BP (6) GERD (gastroesophageal reflux disease): Continue PPI, H2 brown (7) Hypokalemia Resolved K is 4.3 this AM Discharged on po potassium for a few days Patient discharged to SNF Follow up with PCP, Hand Plate Stacker and [employer] Total Time Total Time Spent Total Time Spent (In Minutes): 35 Total Time Includes: Examination of the Patient, Discharge Planning, Medication Reconciliation and Communication With Other Providers Discharge Plan Discharge Items Patient Disposition: Transfer Custodial Fac Reason For Visit: AFIB RVR Discharge Diagnosis: Atrial fibrillation with Rapid ventricular rate Hyperthyroidism Acute systolic heart failure Hypokalemia Activity: Resume your previous activity Non-emergency contact: Primary Care Provider and [employer] Call non-emergency contact if: you have any medication questions and your symptoms worsen Follow-up/Referrals: Nelly Lowe MD [Primary Care Provider] - Diet: Heart Healthy Ambulatory Orders: Basic Metabolic Panel (Routine) Timeframe: 1 Week Location: Determined by Patient Ordered By: Dalia Kinney Attending Provider Instructions: Ms Cho You came to the hospital complaining of palpitations, shortness of breath with exertion and leg swelling. You were evaluated and found to have abnormal heart rhythm called Atrial fibrillation. You also had heart failure and hyperthyroidism. Your problems were managed with medications. You were started on a couple of medications to control your heart rate and hyperthyroidism. You were comanaged with the Salvage Laborer You were also started on a blood thinner called eliquis. It is very important that you follow up with the Salvage Laborer, Hand Plate Stacker and your Primary Doctor. Please take all medications as prescribed. It was a pleasure taking care of you. Pending Studies at Discharge: No Stand-Alone Forms: My [facility] Skilled Items Patient informed of condition?: Yes DNR: No Discharge Level of Care: Skilled Communicable Disease: No Discharge Prognosis: Stable Lines: None Urinary Catheter: No Medications and DC Order Prescriptions: New Eliquis 2.5 mg Tablet 2.5 mg PO BID 30 Days Qty: 60 RF: 1 metoprolol tartrate 100 mg Tablet 100 mg PO HS 30 Days Qty: 30 RF: 0 potassium chloride [Klor-Con M20] 20 mEq Tablet,Er Particles/Crystals 20 meq PO QAM 7 Days Qty: 7 RF: 0 metoprolol tartrate 50 mg Tablet 50 mg PO QAM 30 Days Qty: 30 RF: 0 diltiazem HCl 120 mg Capsule,Extended Release 24hr 120 mg PO QAM 30 Days Qty: 30 RF: 0 lisinopril 2.5 mg Tablet 2.5 mg PO QAM 30 Days Qty: 30 RF: 0 methimazole 5 mg Tablet 15 mg PO BID 30 Days Qty: 180 RF: 0 Continued cholecalciferol (vitamin D3) 125 mcg (5,000 unit) capsule 5,000 units PO DAILY RF: 0 famotidine 20 mg tablet 20 mg PO HS RF: 0 multivitamin Tablet 1 tab PO DAILY RF: 0 pantoprazole 40 mg tablet,delayed release (DR/EC) 40 mg PO DAILY RF: 0 Discontinued lisinopril 5 mg tablet 5 mg PO DAILY RF: 0 propranolol 40 mg tablet 40 mg PO BID RF: 0 Discharge Orders: Discharge Order (Routine); Ordered 02/10/20 Ordered By: Dalia Ag/Other Patient Handouts: Tips Using Less Salt, Low-Salt Choices, Heart Failure Making Changes to Your Diet Admission Data Admit Date/Time: 02/02/20 16:09 Attending Provider: Dalia Lay I. Admit Provider: Holden Evangelista Primary Care Provider: Nelly Lowe Other Providers: Holden Evangelista ; Sathya La ; Sadi Colon ; Wili Galvan [place] Other Interventions: Discharge Summary Assessment (RN) Last Done: 02/10/20 13:06 DC Date/Time DO NOT enter until pt leaves facility: 02/10/20 14:32
[2020-02-10] MEDS ORDERED: METOPROLOL TARTRATE 50 MG TAB PO SCH (21:00)
[2020-02-10] MEDS ORDERED: METOPROLOL TARTRATE 100 MG TAB PO SCH (21:00)
[2020-02-11] MEDS ORDERED: METOPROLOL TARTRATE 50 MG TAB PO SCH (09:00)
== END 2020-02-10 14:32 | DRG 308 ==
LOC: ED 13:03 → SUATTDRO 16:09 → 2S 16:09

== ENCOUNTER 2020-07-02 01:45 | Observation (INO) ==
--- NOTE | 2020-07-02 02:05 | Emergency Department Note ---
History of Present Illness General Chief complaint: Arrhythmia/Palpitations Stated complaint: IRREGULAR HEART BEAT Time Seen by Provider: 07/02/20 01:49 Source: patient, RN notes reviewed and old records reviewed Mode of arrival: ambulatory Limitations: no limitations History of Present Illness Provider complaint: palpitations Onset (ago): hour(s) 3 Location: chest Current Pain Intensity: 0 Relieved By: + rest Exacerbated By: + movement Associated symptoms: + weakness Treatments prior to arrival: none This is an 89-year-old female who presents the emergency department complaining of atrial fibrillation. The patient reports she has weakness in her arms however she denies any chest pain or shortness of breath. 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 The patient is currently on Eliquis and is also on diltiazem. The patient has no other complaints. Home Medications Home Medications Medication Instructions Recorded Confirmed Type cholecalciferol (vitamin D3) 125 5,000 units PO DAILY 12/28/19 07/02/20 History mcg (5,000 unit) capsule famotidine 20 mg PO HS 02/02/20 07/02/20 History multivitamin 1 tab PO DAILY 02/02/20 07/02/20 History pantoprazole 40 mg PO DAILY 02/02/20 07/02/20 History Eliquis 2.5 mg PO BID 30 Days #60 tab 02/10/20 07/02/20 Rx potassium chloride 20 mEq 20 meq PO DAILY 02/25/20 07/02/20 History tablet,extended release diltiazem HCl 120 mg 120 mg PO DAILY 03/30/20 07/02/20 History capsule,extended release 24 hr methimazole 5 mg tablet 5 mg PO .QOD 90 Days #45 tab 06/25/20 07/02/20 Rx furosemide 20 mg PO UD 07/02/20 07/02/20 History lisinopril 2.5 mg PO QAM 07/02/20 07/02/20 History metoprolol tartrate 100 mg PO BID 07/02/20 07/02/20 History Allergies Allergy/AdvReac Type Severity Reaction Status Date / Time No Known Allergies Allergy Unverified 07/02/20 03:04 Past Med/Surg History Medical History Allergic rhinitis Conductive hearing loss Family history non-contributory GERD (gastroesophageal reflux disease) Hemorrhoids History of basal cell carcinoma (BCC) of skin HTN (hypertension) Irritable bowel Multiple thyroid nodules Post-menopausal atrophic vaginitis Seborrheic keratoses Skin cancer Thyroid dysfunction Surgical History H/O: hysterectomy total with BSO History of cataract surgery History of cystoscopy Hx of cholecystectomy Family History Other No significant family history Social History Smoking Status: Never smoker Hx Alcohol Use: Yes Alcohol type: wine Hx Substance Use: No Preferred Language: Yi Communication Ability: Effective Hearing Ability: Hard of Hearing Guest Services Director Required: No Beliefs That Will Affect Care: None marital status: / Current Living Situation: Alone Feels Safe at Home: Yes Safety Concerns: Feels Safe At This Time Review of Systems A total of 10 systems reviewed and were otherwise negative Physical Exam VITAL SIGNS - Vital signs and nursing notes were reviewed. GENERAL - 89-year-old female appearing stated age who is in no acute distress. Communicates well with provider and answers questions appropriately. SKIN - Without rashes. HEAD - NC/AT. EYES - PERRL with EOMI bilaterally. Sclera anicteric. Palpebral conjunctiva pink and moist with no injection noted. EARS - No deformities of external structures noted on gross examination bilaterally. No pain elicited with palpation of the tragus bilaterally. External auditory canals without discharge or otorrhea. Tympanic membranes pearly hunter without retraction or bulging. No fluid or purulent material visualized behind the TM. Handle of malleus, umbo, cone of light, pars tensa/flaccid all easily visualized. NOSE - Midline and without cyanosis. No epistaxis or purulent drainage noted. Septum midline without deviation or septal hematoma noted. MOUTH/OROPHARYNX - Without perioral cyanosis. Buccal mucosa pink and moist and without leukoplakia. Tongue midline with equal elevation of palate bilaterally. No tonsillar hypertrophy, erythema, or exudates noted. dentition noted. NECK - Neck with FROM. Supple to palpation. lymphadenopathy noted. No nuchal rigidity. LUNGS - Chest wall symmetric without accessory muscle use, intercostals retractions, or central cyanosis. Normal vesicular breath sounds CTA B/L. No wheezes, rales, or rhonchi appreciated. CARDIAC - RRR with S1/S2. No murmur, rubs, or gallops appreciated. ABDOMEN - Abdominal contour without pulsations or visible masses. BS normoactive all four quadrants. No tenderness, palpable masses, hepatosplenome parvez, or ascites noted. EXTREMITIES - No clubbing or peripheral cyanosis. No pretibial edema present. +3/5 radial, posterior tibial, and dorsalis pedis pulses palpated throughout. +5/5 strength noted in UE/LE bilaterally. NEUROLOGIC - Cranial nerves II through XII grossly intact. Sensory intact to light touch throughout. Patellar reflexes +2/4. PSYCH - A&Ox3 and cooperates fully with examiner. Pt is very pleasant and interacts well with examiner. Course Administered Medications Discontinued Medications Apixaban (Apixaban 2.5 Mg Tab) 2.5 mg PO BID [facility] Stop: 08/01/20 08:59 Last Admin: 07/02/20 09:53 Dose: 2.5 mg Documented by: [id number] Diltiazem HCl (Diltiazem Hcl 120 Mg Capcr) 120 mg PO DAILY [facility] Stop: 08/01/20 05:44 Last Admin: 07/02/20 06:35 Dose: 120 mg Documented by: [id number] Magnesium Sulfate/Dextrose (Magnesium Sulfate / D5w) 1 gm in 100 mls @ 200 mls/hr IV Q30M [facility] Stop: 07/02/20 02:58 Last Infusion: 07/02/20 03:40 Dose: 0 mls/hr Documented by: [id number] Admin: 07/02/20 02:46 Dose: 200 mls/hr Documented by: [id number] Infusion: 07/02/20 02:45 Dose: 0 mls/hr Documented by: [id number] Admin: 07/02/20 02:08 Dose: 200 mls/hr Documented by: [id number] Magnesium Sulfate/Dextrose (Magnesium Sulfate / D5w) 1 gm in 100 mls @ 200 mls/hr IV Q30M [facility] Stop: 07/02/20 02:59 Last Infusion: 07/02/20 05:04 Dose: 0 mls/hr Documented by: [id number] Admin: 07/02/20 04:19 Dose: 200 mls/hr Documented by: [id number] Infusion: 07/02/20 04:19 Dose: 0 mls/hr Documented by: [id number] Admin: 07/02/20 03:49 Dose: 200 mls/hr Documented by: [id number] Albumin Human (Albumin 25%) 50 mls @ 50 mls/hr IV ONE ONE Stop: 07/02/20 05:25 Last Infusion: 07/02/20 07:07 Dose: 0 mls/hr Documented by: [id number] Admin: 07/02/20 05:33 Dose: 50 mls/hr Documented by: [id number] Pantoprazole Sodium 40 mg/ (Syringe) 10 mls @ 5 mls/min IV NOW ONE Stop: 07/02/20 06:01 Last Admin: 07/02/20 06:34 Dose: 5 mls/min Documented by: [id number] Ioversol (Ioversol 100ml) 100 ml IV ONCE ONE Stop: 07/02/20 05:11 Last Admin: 07/02/20 05:10 Dose: 93 ml Documented by: [id number] Lisinopril (Lisinopril 2.5 Mg Tab) 2.5 mg PO QAM [facility] Stop: 08/01/20 08:59 Last Admin: 07/02/20 09:53 Dose: 2.5 mg Documented by: [id number] Methimazole (Methimazole 5 Mg Tablet) 5 mg PO Q48H [facility] Stop: 08/01/20 08:59 Last Admin: 07/02/20 09:53 Dose: 5 mg Documented by: [id number] Metoprolol Succinate (Metoprolol Succ 50mg Ext Rel Tab) 100 mg PO NOW STA Stop: 07/02/20 03:12 Last Admin: 07/02/20 03:49 Dose: 100 mg Documented by: [id number] Multivitamins (Multivitamin Tab) 1 tab PO DAILY [facility] Stop: 08/01/20 08:59 Last Admin: 07/02/20 09:56 Dose: 1 tab Documented by: [id number] Medical Decision Making Differential Diagnosis Cardiac ischemia, aortic dissection, pulmonary embolism, pneumothorax, pneumonia, pericarditis, myocarditis, esophageal rupture, GERD, cholecystitis, pancreatitis, musculoskeletal, as well as other pathologies. Medical Records Attestation: I reviewed the patient's medical records. Home Medications Current Medication List: was personally reviewed by me Laboratory Data Attestation: I reviewed the patient's lab results. Result diagrams: 07/02/20 02:10 07/02/20 02:10 Lab Results 07/02/20 07/02/20 07/02/20 Range/Units 02:10 02:10 02:10 WBC 7.47 (4.8-10.8) K/uL RBC 4.67 (4.2-5.4) M/uL Hgb 14.2 (12.0-16.0) g/dL Hct 42.6 (37-47) % MCV 91.2 (80-100) fL MCH 30.4 (25-34) pg MCHC 33.3 (32-36) g/dL RDW Std Deviation 48.4 H (36.4-46.3) fL RDW Coeff of Angel 14.4 (11.5-14.5) % Plt Count 192 (130-400) K/uL MPV 9.0 (7.4-10.4) fL Immature Gran % (Auto) 0.1 % Neut % (Auto) 48.4 % Lymph % (Auto) 40.2 % Payne % (Auto) 7.5 % Eos % (Auto) 3.5 % Baso % (Auto) 0.3 % Neut # (Auto) 3.62 (1.4-6.5) K/uL Lymph # (Auto) 3.00 (1.2-3.4) K/uL Payne # (Auto) 0.56 (0.11-0.59) K/uL Eos # (Auto) 0.26 (0-0.5) K/uL Baso # (Auto) 0.02 (0-0.2) K/uL Immature Gran # (Auto) 0.01 (0.00-0.02) K/uL PT 11.8 (9.0-12.0) Seconds INR 1.1 (0.9-1.1) APTT 28.0 (21.0-31.0) Seconds PTT Ratio 1.0 Sodium 135 L (136-145) mmol/L Potassium 4.4 (3.5-5.1) mmol/L Chloride 101 (98-107) mmol/L Carbon Dioxide 27 (21-32) mmol/L Anion Gap 7.0 (3-11) BUN 12 (7-18) mg/dl Creatinine 0.91 (0.6-1.2) mg/dl Est Cr Clr Drug Dosing 37.6 ml/min Est GFR ( Amer) 65.7 Est GFR (Non-Af Amer) 56.7 BUN/Creatinine Ratio 13.2 (10-20) Glucose 130 H (70-99) mg/dl Estimat Average Glucose mg/dl Hemoglobin A1c (4.5-5.6) % Calcium 9.2 (8.5-10.1) mg/dl Magnesium 2.1 (1.8-2.4) mg/dl Total Bilirubin 1.1 H (0.2-1) mg/dl AST 54 H (15-37) U/L ALT 49 (12-78) U/L Alkaline Phosphatase 139 H (45-117) U/L Total Creatine Kinase 169 (26-192) U/L CK-MB (CK-2) 3.3 (0.5-3.6) ng/ml CK/CKMB % Calc 2.0 (0-3.0) Troponin I < 0.015 (0-0.045) ng/ml NT-Pro-B Natriuret Pep 2471 H (0-1800) pg/ml Total Protein 8.0 (6.4-8.2) gm/dl Albumin 4.1 (3.4-5.0) gm/dl Globulin 3.9 (2.5-4.0) gm/dl Albumin/Globulin Ratio 1.1 (0.9-2) Lipase 160 (73-393) U/L 07/02/20 Range/Units 02:10 WBC (4.8-10.8) K/uL RBC (4.2-5.4) M/uL Hgb (12.0-16.0) g/dL Hct (37-47) % MCV (80-100) fL MCH (25-34) pg MCHC (32-36) g/dL RDW Std Deviation (36.4-46.3) fL RDW Coeff of Angel (11.5-14.5) % Plt Count (130-400) K/uL MPV (7.4-10.4) fL Immature Gran % (Auto) % Neut % (Auto) % Lymph % (Auto) % Payne % (Auto) % Eos % (Auto) % Baso % (Auto) % Neut # (Auto) (1.4-6.5) K/uL Lymph # (Auto) (1.2-3.4) K/uL Payne # (Auto) (0.11-0.59) K/uL Eos # (Auto) (0-0.5) K/uL Baso # (Auto) (0-0.2) K/uL Immature Gran # (Auto) (0.00-0.02) K/uL PT (9.0-12.0) Seconds INR (0.9-1.1) APTT (21.0-31.0) Seconds PTT Ratio Sodium (136-145) mmol/L Potassium (3.5-5.1) mmol/L Chloride (98-107) mmol/L Carbon Dioxide (21-32) mmol/L Anion Gap (3-11) BUN (7-18) mg/dl Creatinine (0.6-1.2) mg/dl Est Cr Clr Drug Dosing ml/min Est GFR ( Amer) Est GFR (Non-Af Amer) BUN/Creatinine Ratio (10-20) Glucose (70-99) mg/dl Estimat Average Glucose 131 mg/dl Hemoglobin A1c 6.2 H (4.5-5.6) % Calcium (8.5-10.1) mg/dl Magnesium (1.8-2.4) mg/dl Total Bilirubin (0.2-1) mg/dl AST (15-37) U/L ALT (12-78) U/L Alkaline Phosphatase (45-117) U/L Total Creatine Kinase (26-192) U/L CK-MB (CK-2) (0.5-3.6) ng/ml CK/CKMB % Calc (0-3.0) Troponin I (0-0.045) ng/ml NT-Pro-B Natriuret Pep (0-1800) pg/ml Total Protein (6.4-8.2) gm/dl Albumin (3.4-5.0) gm/dl Globulin (2.5-4.0) gm/dl Albumin/Globulin Ratio (0.9-2) Lipase (73-393) U/L Imaging Data Attestation: I personally reviewed and interpreted this imaging study as follows: My Impression: 1 view the chest was interpreted by me does not show any evidence of pneumonia congestion or pneumothorax. Radiologist's Impression: [place], [place] [phone] CT Scan Report Patient: MATTY ELIZABETH Date: 07/02/20 MR#: [id number]: 1004 ROSALBA Acct ID:[id number]: Date: [address] Zip: [place] [address] Age: 89Location: 2S Sex: [facility] Att Phy: Eva Cook, DODiagnosis: PALPITATIONS Francheska Phy: Nelly Lowe MDService Date: 07/02/20 Fam Phy:Interpreting Phy: Ross Cochran Admit Phy: Kip Jordan MD Ordering Phy: Kip Jordan MD cc: ~ ABDOMEN AND PELVIS CT WITH IV CONTRAST CT DOSE: 339.03 mGycm HISTORY: Acute generalized abdominal pain with reflux abd discomfort TECHNIQUE: Multiaxial CT images of the abdomen and pelvis were performed following the IV administration of 93 cc of Optiray 320, A dose lowering technique was utilized adhering to the principles of ALARA. COMPARISON STUDY: CTA chest 02/02/2020, CT abdomen and pelvis 06/16/2018 FINDINGS: Mild intralobular septal thickening and bronchial wall thickening of the imaged lung bases. No pneumatosis or pneumoperitoneum. Cardiomegaly. Spleen, pancreas and adrenal glands are unremarkable. The gallbladder appears surgically absent. Heterogeneity of the liver with probable hepatic steatosis. Probable right-sided renal cysts measuring up to 8 mm. No obstructive uropathy. Moderate urinary bladder wall thickening with partial distention and perivesicular stranding. Hysterectomy. Moderate mixed plaque of the abdominal aorta without aneurysm. No adenopathy. Moderate distal esophageal wall thickening. No bowel obstruction or bowel wall thickening. Mild fecal retention. Appendix is not definitively seen. No secondary signs of acute appendicitis. Probable some mucosal lipoma involves a loop of bowel within the abdominal left lower quadrant, 9 mm. Mild generalized body wall edema. Bones appear intact. Demineralized appearance of the bones. Unchanged sclerosis of the right iliac bone suspicious for patchy 20 changes. No acute fracture. IMPRESSION: 1. No bowel obstruction or bowel wall thickening. 2. Unchanged moderate wall thickening of the distal esophagus. 3. Partial distention of the urinary bladder with wall thickening and perivesicular stranding. Correlate with urinalysis to exclude cystitis. 4. Cardiomegaly. 5. Additional findings as above. ACT 112: Negative or not required by law. The above report was generated using voice recognition software. It may contain grammatical, syntax or spelling errors. Electronically signed by: Tyrone Cochran M.D. 07/02/2020 8:08 AM Dictated: 07/02/20800 Transcribed: 07/02/20804 [place], [place] [phone] XRay Report Patient: MATTY ELIZABETH Date: 07/02/20 MR#: [id number]: 1004 GALINDOLASHON MARTÍNEZ Acct ID:[id number]: Date: [address] Zip: [place] [address] Age: 89Location: 2S Sex: FRoom[facility]Bed: [facility] Att Phy: Eva Cook, DODiagnosis: PALPITATIONS Francheska Phy: Nelly Lowe MDService Date: 07/02/20 Fam Phy:Interpreting Phy: Merritt Ladd MD Admit Phy: Kip Jordan MD Ordering Phy: Noel Mckeon MD cc: ~ SINGLE VIEW CHEST CLINICAL HISTORY: Atypical chest pain. FINDINGS: An AP, portable, upright chest radiograph is compared to study dated 03/03/2020 and correlated with chest CT dated 02/02/2020. The heart is enlarged noting atherosclerotic calcification of the thoracic aorta. The pulmonary vasculature is noncongested. Chronic interstitial thickening is similar to previous. No airspace consolidation or large pleural effusion is identified. Atelectasis is seen at the lung bases. No pneumothorax is seen. The skeletal structures are osteopenic. The bony thorax is grossly intact. IMPRESSION: Cardiomegaly with no acute cardiopulmonary abnormality. ACT 112: Negative or not required by law. Electronically signed by: Merritt Ladd M.D. 07/02/2020 8:29 AM Dictated: 07/02/20827 Transcribed: 07/02/20827 ECG Data Attestation: I personally reviewed and interpreted this ECG as follows: Indication: + palpitations Rate (beats per minute): 95 Rhythm: + atrial fibrillation ECG Intervals/blocks: + Normal QT-c (412) ECG [place]: + Left axis deviation ECG ST segments: no ST depression and no ST elevation ECG Findings: + Other (Incomplete LBBB) Comparison ECG Date: from (03/03/2020) Change: no significant change MDM Narrative This is an 89-year-old female who presents the emergency department during a period of high-volume high acuity. The patient was given 4 g of magnesium. The patient is not in RVR and she is rate controlled at this point she is also on El iquis. She also has a follow-up appointment with cardiology tomorrow. I felt that the patient could be safely discharged home for this follow-up with cardiology however she wished to be admitted. I did discuss the case with the hospitalist service who did agree to admit the patient. Patient was seen and evaluated as above in room C12. Review was performed of nursing notes and vital signs. I did review pertinent previous visits and patient history. After obtaining a thorough history and physical examination the above work up was performed. While in the department, I personally reevaluated the patient several times and each time the patient was found to be resting comfortably. The patient was educated upon management, educated upon todays findings/results, educated upon importance of follow up from today's visit, educated upon symptoms in which to return, had questions answered prior to discharge, verbalized understanding, and was discharged home in good condition. An order was placed for continuous cardiac monitoring. The monitor shows a rate of 100 with Afib rhythm. The patient was evaluated during the global COVID-19 pandemic, and that diagnosis was suspected/considered upon their initial presentation. Their evaluation, treatment and testing was consistent with current guidelines for patients who present with complaints or symptoms that may be related to COVID-19 . Impression & Plan Atrial fibrillation with RVR Discharge Plan Visit Data Chief Complaint: Arrhythmia/Palpitations Stated Complaint: IRREGULAR HEART BEAT ED Provider: Noel Mckeon Discharge Problem: Atrial fibrillation with RVR Patient Disposition: Admitted As Inpatient Condition: Good Discharge Instructions Interventions: ED Discharge Assessment Last Done: 07/02/20 04:33
[2020-07-02] MEDS: MAGNESIUM SULFATE / D5W 1 GM/100 ML BAG IV SCH ×4 (02:08→04:19)
[2020-07-02] MEDS ORDERED: METOPROLOL TARTRATE 1 MG/ML VIAL IV PRN (02:16)
[2020-07-02 02:22] LABS: Basophils # (auto) 0.02 K/uL (0-0.2); Basophils % (auto) 0.3 %; Eosinophils # (auto) 0.26 K/uL (0-0.5); Eosinophils % (auto) 3.5 %; Hematocrit (blood only) 42.6 % (37-47); Hemoglobin 14.2 g/dL (12.0-16.0); Immature Granulocytes # (auto) 0.01 K/uL (0.00-0.02); Immature Granulocytes % (auto) 0.1 %; Lymphocytes % (auto) 40.2 %; Mean Corpuscular Hemoglobin 30.4 pg (25-34); Mean Corpuscular Hgb Conc 33.3 g/dL (32-36); Mean Corpuscular Volume 91.2 fL (80-100); Monocytes # (auto) 0.56 K/uL (0.11-0.59); Monocytes % (auto) 7.5 %; Neutrophils # (auto) 3.62 K/uL (1.4-6.5); Neutrophils % (auto) 48.4 %; Platelet Count 192 K/uL (130-400); RDW Coefficient of Variation 14.4 % (11.5-14.5); RDW Standard Deviation 48.4 fL (36.4-46.3); Red Blood Count 4.67 M/uL (4.2-5.4); White Blood Count 7.47 K/uL (4.8-10.8)
[2020-07-02 02:33] LABS: INR 1.1 (0.9-1.1); Prothrombin Time 11.8 Seconds (9.0-12.0)
[2020-07-02 02:39] LABS: Alanine Aminotransferase 49 U/L (12-78); Albumin Level 4.1 gm/dl (3.4-5.0); Aspartate Aminotransferase 54 U/L (15-37); BUN Creatinine Ratio 13.2 (10-20); Blood Urea Nitrogen 12 mg/dl (7-18); Calcium 9.2 mg/dl (8.5-10.1); Carbon Dioxide 27 mmol/L (21-32); Chloride 101 mmol/L (98-107); Creatinine Clr Calc Pharmacy 37.6 ml/min; Est GFR (African American) 65.7; Est GFR (Non-African American) 56.7; Glucose 130 mg/dl (70-99); Lipase 160 U/L (73-393); Potassium 4.4 mmol/L (3.5-5.1); Sodium 135 mmol/L (136-145)
[2020-07-02 02:44] LABS: Albumin Globulin Ratio 1.1 (0.9-2); Alkaline Phosphatase 139 U/L (45-117); Bilirubin,Total 1.1 mg/dl (0.2-1); Creatine Kinase 169 U/L (26-192); Creatine Kinase MB 3.3 ng/ml (0.5-3.6); Globulin 3.9 gm/dl (2.5-4.0); NT Pro B Type Natriuretic Pept 2471 pg/ml (0-1800); Troponin I < 0.015 ng/ml (0-0.045)
[2020-07-02] MEDS ORDERED: METOPROLOL SUCC 50MG EXT REL TAB PO STA (03:11)
[2020-07-02 03:21] LABS: Magnesium 2.1 mg/dl (1.8-2.4)
--- NOTE | 2020-07-02 03:45 | History & Physical Report ---
Date of Service July 02, 2020 Assessment & Plan (1) Palpitations: Secondary to mild anxiety, abdominal discomfort possibly uncontrolled GERD chronic systolic heart failure (EF 40 to 45%, TTE 2019), euvolemic A. fib on Eliquis, rate controlled Hypertension, slight elevated hx mitral regurgitation Graves' disease, decreased dosing/frequency following recent outpatient elevated TSH as per Endocrinology provider Hyperglycemia rule out DM OBS PCU Facilitate heart rate meds, may need dose titration Increase PPI dosing to twice daily for now, continue nighttime H2 brown Inpatient Cardiology consult as per patient request RE palpitations Check UA Check hemoglobin A1c DVT prophylaxis. Eliquis Full code Text document was generated using [employer] voice recognition software. It may contain grammatical or spelling errors. Kindly contact undersigned for clarification of any documentation item in question. History of Present Illness Graves' disease, Chief Complaint: Palpitations Primary Care Provider: Nelly Lowe MD History obtained from patient and records. Medical history significant for chronic systolic heart failure (EF 40 to 45%, TTE 2019), A. fib on Eliquis, mitral regurgitation, hypertension, Graves' disease, GERD, IBS as per records. Last confinement January 2020 for new onset A. fib. Patient discharged on metoprolol and Eliquis. Patient metoprolol increased in dose by Cardiology provider from 50 mg to 100 mg BID due to patient heart rate of 90s at home. Outpatient TSH noted to be 24 last week. [employer] recommended stopping methimazole for 1 full week and to resume every other day dosing starting today. Last 3 days, patient noted abdominal discomfort described as fullness without n ausea and emesis. Initial constipation followed by a normal bowel movement. Last night patient was watching television, when she noted palpitations without chest pain or S OB. Still with abdominal discomfort. No unusual weight gain. No unusual stress at home. Compliant with home medications. Patient worried that stopping methimazole for a week might have precipitated symptoms. Brought to the ER for evaluation. Patient not comfortable going home following ER provider evaluation and requesting to see sales support coordinator inpatient. 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 Allergies Allergy/AdvReac Type Severity Reaction Status Date / Time No Known Allergies Allergy Unverified 07/02/20 03:04 Home Medications Home Medications Medication Instructions Recorded Confirmed Type cholecalciferol (vitamin D3) 125 5,000 units PO DAILY 12/28/19 07/02/20 History mcg (5,000 unit) capsule famotidine 20 mg PO HS 02/02/20 07/02/20 History multivitamin 1 tab PO DAILY 02/02/20 07/02/20 History pantoprazole 40 mg PO DAILY 02/02/20 07/02/20 History apixaban [Eliquis] 2.5 mg PO BID 30 Days #60 tab 02/10/20 07/02/20 Rx potassium chloride 20 mEq 20 meq PO DAILY 02/25/20 07/02/20 History tablet,extended release diltiazem HCl 120 mg 120 mg PO DAILY 03/30/20 07/02/20 History capsule,extended release 24 hr methimazole 5 mg tablet 5 mg PO .QOD 90 Days #45 tab 06/25/20 07/02/20 Rx furosemide 20 mg PO UD 07/02/20 07/02/20 History lisinopril 2.5 mg PO QAM 07/02/20 07/02/20 History metoprolol tartrate 100 mg PO BID 07/02/20 07/02/20 History Past Med/Surg History Medical History (Updated 07/02/20 @ 04:17 by Kip Jordan MD) Allergic rhinitis Conductive hearing loss Family history non-contributory GERD (gastroesophageal reflux disease) Hemorrhoids History of basal cell carcinoma (BCC) of skin HTN (hypertension) Irritable bowel Multiple thyroid nodules Post-menopausal atrophic vaginitis Seborrheic keratoses Skin cancer Thyroid dysfunction Surgical History H/O: hysterectomy total with BSO History of cataract surgery History of cystoscopy Hx of cholecystectomy Family History Other No significant family history Social History Smoking Status: Never smoker Hx Alcohol Use: Yes Alcohol type: wine Hx Substance Use: No Preferred Language: Malay Communication Ability: Effective Hearing Ability: Hard of Hearing Warp Spinner Required: No Beliefs That Will Affect Care: None marital status: / Current Living Situation: Alone Feels Safe at Home: Yes Safety Concerns: Feels Safe At This Time Review of Systems Review of Systems: As per HPI, all 10 systems reviewed, all other ROS negative Physical Exam Physical Exam: GENERAL: Comfortable, pleasant, slightly anxious, no respiratory distress SKIN: Normal color, warm HEENT: Bespectacled, Ramsay palpebral conjunctivae, no ptosis, dry buccal mucosa NECK : Supple, no tenderness CHEST : CTA, no tenderness HEART : Irregular, systolic murmur ABDOMEN: Some distention, no overt tenderness EXTREMITIES : No LE swelling/tenderness, no other conspicuous deformities noted NEUROLOGIC : Coherent, no facial asymmetry, no other gross focality Results & Data Results & Data ([facility]) Vital Signs (Past 12 Hours) Vital Signs Temp Pulse Resp BP Pulse Ox 07/02/20 03:31 87 21 146/105 H 99 07/02/20 03:00 76 14 117/86 95 07/02/20 02:30 79 14 134/75 95 07/02/20 02:00 95 07/02/20 01:55 91 H 22 155/108 H 99 07/02/20 01:53 36.9 C 92 H 18 145/112 H 95 Laboratory Results Laboratory Results WBC 7.47 K/uL (4.8-10.8) 07/02/20 02:10 RBC 4.67 M/uL (4.2-5.4) 07/02/20 02:10 Hgb 14.2 g/dL (12.0-16.0) 07/02/20 02:10 Hct 42.6 % (37-47) 07/02/20 02:10 MCV 91.2 fL (80-100) 07/02/20 02:10 MCH 30.4 pg (25-34) 07/02/20 02:10 MCHC 33.3 g/dL (32-36) 07/02/20 02:10 RDW Std Deviation 48.4 fL (36.4-46.3) H 07/02/20 02:10 RDW Coeff of Angel 14.4 % (11.5-14.5) 07/02/20 02:10 Plt Count 192 K/uL (130-400) 07/02/20 02:10 MPV 9.0 fL (7.4-10.4) 07/02/20 02:10 Immature Gran % (Auto) 0.1 % 07/02/20 02:10 Neut % (Auto) 48.4 % 07/02/20 02:10 Lymph % (Auto) 40.2 % 07/02/20 02:10 Tal[place]ferro % (Auto) 7.5 % 07/02/20 02:10 Eos % (Auto) 3.5 % 07/02/20 02:10 Baso % (Auto) 0.3 % 07/02/20 02:10 Neut # (Auto) 3.62 K/uL (1.4-6.5) 07/02/20 02:10 Lymph # (Auto) 3.00 K/uL (1.2-3.4) 07/02/20 02:10 [place]ferro # (Auto) 0.56 K/uL (0.11-0.59) 07/02/20 02:10 Eos # (Auto) 0.26 K/uL (0-0.5) 07/02/20 02:10 Baso # (Auto) 0.02 K/uL (0-0.2) 07/02/20 02:10 Immature Gran # (Auto) 0.01 K/uL (0.00-0.02) 07/02/20 02:10 PT 11.8 Seconds (9.0-12.0) 07/02/20 02:10 INR 1.1 (0.9-1.1) 07/02/20 02:10 APTT 28.0 Seconds (21.0-31.0) 07/02/20 02:10 PTT Ratio 1.0 07/02/20 02:10 Sodium 135 mmol/L (136-145) L 07/02/20 02:10 Potassium 4.4 mmol/L (3.5-5.1) 07/02/20 02:10 Chloride 101 mmol/L (98-107) 07/02/20 02:10 Carbon Dioxide 27 mmol/L (21-32) 07/02/20 02:10 Anion Gap 7.0 (3-11) 07/02/20 02:10 BUN 12 mg/dl (7-18) 07/02/20 02:10 Creatinine 0.91 mg/dl (0.6-1.2) 07/02/20 02:10 Est Cr Clr Drug Dosing 37.6 ml/min 07/02/20 02:10 Est GFR ( Amer) 65.7 07/02/20 02:10 Est GFR (Non-Af Amer) 56.7 07/02/20 02:10 BUN/Creatinine Ratio 13.2 (10-20) 07/02/20 02:10 Glucose 130 mg/dl (70-99) H 07/02/20 02:10 Calcium 9.2 mg/dl (8.5-10.1) 07/02/20 02:10 Magnesium 2.1 mg/dl (1.8-2.4) 07/02/20 02:10 Total Bilirubin 1.1 mg/dl (0.2-1) H 07/02/20 02:10 AST 54 U/L (15-37) H 07/02/20 02:10 ALT 49 U/L (12-78) 07/02/20 02:10 Alkaline Phosphatase 139 U/L (45-117) H 07/02/20 02:10 Total Creatine Kinase 169 U/L (26-192) 07/02/20 02:10 CK-MB (CK-2) 3.3 ng/ml (0.5-3.6) 07/02/20 02:10 CK/CKMB % Calc 2.0 (0-3.0) 07/02/20 02:10 Troponin I < 0.015 ng/ml (0-0.045) 07/02/20 02:10 NT-Pro-B Natriuret Pep 2471 pg/ml (0-1800) H 07/02/20 02:10 Total Protein 8.0 gm/dl (6.4-8.2) 07/02/20 02:10 Albumin 4.1 gm/dl (3.4-5.0) 07/02/20 02:10 Globulin 3.9 gm/dl (2.5-4.0) 07/02/20 02:10 Albumin/Globulin Ratio 1.1 (0.9-2) 07/02/20 02:10 Lipase 160 U/L (73-393) 07/02/20 02:10 Diagnostic Findings Chest x-ray as per my interpretation : Cardiomegaly, atelectasis CT abdomen pelvis initial read: Fatty liver. Mild distal thoracic esophageal wall thickening from possible reflux esophagitis. 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 EKG as per my interpretation : Rate 95, A. fib, LAD, LAFB, ST depression lateral leads
[2020-07-02] MEDS ORDERED: ALBUMIN 25% 50 ML IV ONE (04:26)
[2020-07-02] MEDS ORDERED: PROMETHAZINE HCL 12.5 MG in SODIUM CHLORIDE 0.9% 50 ML IV PRN (05:09)
[2020-07-02] MEDS ORDERED: MoRPHine SULFATE 2 MG/ML CARP IV PRN (05:09)
[2020-07-02] MEDS ORDERED: ACETAMINOPHEN 325 MG TAB PO PRN (05:09)
[2020-07-02] MEDS ORDERED: NITROGLYCERIN SL 0.4 MG/TAB TAB SL PRN (05:09)
[2020-07-02] MEDS ORDERED: TRAMADOL HCL 50 MG TABLET PO PRN (05:09)
[2020-07-02] MEDS ORDERED: IOVERSOL 100ml IV ONE (05:10)
[2020-07-02 05:29] LABS: Appearance Urine Clear (Clear); Bilirubin Urine Negative (Negative); Blood Urine Negative (Negative); Color Urine Yellow; Glucose Urine UA Negative (Negative); Ketones Urine Negative (Negative); Leukocyte Esterase Urine Negative (Negative); Nitrite Urine Negative (Negative); Protein Urine Negative (Negative); Urobilinogen Urine Negative (Negative); pH Urine 6.5 (4.5-7.5)
[2020-07-02] MEDS ORDERED: dilTIAZem HCL 120 MG CAPCR PO SCH ×2 (05:45→09:00)
[2020-07-02] MEDS ORDERED: PANTOprazole 40 MG in SYRINGE 0 ML IV ONE (06:00)
[2020-07-02 06:36] LABS: Estimated Average Glucose 131 mg/dl; Hemoglobin A1C 6.2 % (4.5-5.6)
--- NOTE | 2020-07-02 08:10 | CT Scan Report ---
ABDOMEN AND PELVIS CT WITH IV CONTRAST CT DOSE: 339.03 mGycm HISTORY: Acute generalized abdominal pain with reflux abd discomfort TECHNIQUE: Multiaxial CT images of the abdomen and pelvis were performed following the IV administrat ion of 93 cc of Optiray 320, A dose lowering technique was utilized adhering to the principles of [place] ROLO. COMPARISON STUDY: CTA chest 02/02/2020, CT abdomen and pelvis 06/16/2018 FINDINGS: Mild intralobular septal thickening and bronchial wall thickening of the imaged lung bases. No pneuma tosis or pneumoperitoneum. Cardiomegaly. Spleen, pancreas and adrenal glands are unremarkable. The ga llbladder appears surgically absent. Heterogeneity of the liver with probable hepatic steatosis. Prob able right-sided renal cysts measuring up to 8 mm. No obstructive uropathy. Moderate urinary bladder wall thickening with partial distention and perivesicular stranding. Hysterectomy. Moderate mixed liane que of the abdominal aorta without aneurysm. No adenopathy. Moderate distal esophageal wall thickening. No bowel obstruction or bowel wall thickening. Mild fecal retention. Appendix is not definitively seen. No secondary signs of acute appendicitis. Probable ana e mucosal lipoma involves a loop of bowel within the abdominal left lower quadrant, 9 mm. Mild genera lized body wall edema. Bones appear intact. Demineralized appearance of the bones. Unchanged sclerosi s of the right iliac bone suspicious for patchy 20 changes. No acute fracture. IMPRESSION: 1. No bowel obstruction or bowel wall thickening. 2. Unchanged moderate wall thickening of the distal esophagus. 3. Partial distention of the urinary bladder with wall thickening and perivesicular stranding. Correl ate with urinalysis to exclude cystitis. 4. Cardiomegaly. 5. Additional findings as above. ACT 112: Negative or not required by law. The above report was generated using voice recognition software. It may contain grammatical, syntax o r spelling errors. Electronically signed by: Tyrone Cocrhan M.D. 07/02/2020 8:08 AM
--- NOTE | 2020-07-02 08:31 | XRay Report ---
SINGLE VIEW CHEST CLINICAL HISTORY: Atypical chest pain. FINDINGS: An AP, portable, upright chest radiograph is compared to study dated 03/03/2020 and correlat ed with chest CT dated 02/02/2020. The heart is enlarged noting atherosclerotic calcification of the t horacic aorta. The pulmonary vasculature is noncongested. Chronic interstitial thickening is similar to previous. No airspace consolidation or large pleural effusion is identified. Atelectasis is seen a t the lung bases. No pneumothorax is seen. The skeletal structures are osteopenic. The bony thorax is grossly intact. IMPRESSION: Cardiomegaly with no acute cardiopulmonary abnormality. ACT 112: Negative or not required by law. Electronically signed by: Merritt Ladd M.D. 07/02/2020 8:29 AM
[2020-07-02] MEDS ORDERED: APIXABAN 2.5 MG TAB PO SCH (09:00)
[2020-07-02] MEDS ORDERED: methIMAzole 5 MG TABLET PO SCH (09:00)
[2020-07-02] MEDS ORDERED: MULTIVITAMIN TAB PO SCH (09:00)
[2020-07-02] MEDS ORDERED: PANTOprazole 40 MG TAB PO SCH ×2 (09:00→21:00)
--- NOTE | 2020-07-02 12:42 | Electrocardiogram Report ---
Test Reason : Blood Pressure : / mmHG Vent. Rate : 095 BPM Atrial Rate : 083 BPM P-R Int : 000 ms QRS Dur : 106 ms QT Int : 328 ms P-R-T Axes : 000 -42 089 degrees QTc Int : 412 ms Atrial fibrillation Left axis deviation Abnormal ECG When compared with ECG of 03-MAR-2020 11:41, Borderline criteria for Anterior infarct are no longer Present Confirmed by Eric Khan ([id number]) on 07/02/2020 12:42:23 PM Referred By: REFERRED SELF Confirmed By:Jose Alberto Khan
--- NOTE | 2020-07-02 13:43 | Hospitalist Progress Note ---
Date of Service July 02, 2020 Assessment & Plan (1) Palpitations: Secondary to mild anxiety, abdominal discomfort possibly uncontrolled GERD chronic systolic heart failure (EF 40 to 45%, TTE 2019), euvolemic A. fib on Eliquis, rate controlled Hypertension, slight elevated hx mitral regurgitation Graves' disease, decreased dosing/frequency following recent outpatient elevated TSH as per Endocrinology provider Hyperglycemia rule out DM OBS PCU Facilitate heart rate meds, may need dose titration Increase PPI dosing to twice daily for now, continue nighttime H2 brown Inpatient Cardiology consult as per patient request RE palpitations Check UA Check hemoglobin A1c DVT prophylaxis. Eliquis Full code Text document was generated using [employer] voice recognition software. It may contain grammatical or spelling errors. Kindly contact undersigned for clarification of any documentation item in question. Admission and Anticipated Discharge Date Admission Date: July 02, 2020 Results & Data Results & Data ([facility]) Vital Signs (Past 12 Hours) Vital Signs Temp Pulse Pulse Resp BP BP Pulse Ox 07/02/20 12:10 36.5 C 98 H 16 132/69 95 07/02/20 08:05 36.9 C 99 H 16 129/61 99 07/02/20 05:09 36.7 C 93 H 16 132/94 96 07/02/20 04:00 76 18 128/90 94 07/02/20 03:31 87 21 146/105 H 99 07/02/20 03:00 76 14 117/86 95 07/02/20 02:30 79 14 134/75 95 07/02/20 02:00 95 07/02/20 01:55 91 H 22 155/108 H 99 07/02/20 01:53 36.9 C 92 H 18 145/112 H 95 Laboratory Results Short CBC 07/02/20 Range/Units 02:10 WBC 7.47 (4.8-10.8) K/uL Hgb 14.2 (12.0-16.0) g/dL Hct 42.6 (37-47) % Plt Count 192 (130-400) K/uL BMP 07/02/20 02:10 Sodium 135 L Potassium 4.4 Chloride 101 Carbon Dioxide 27 BUN 12 Creatinine 0.91 Glucose 130 H Calcium 9.2 Cardiac Enzymes 07/02/20 Range/Units 02:10 Total Creatine Kinase 169 (26-192) U/L CK-MB (CK-2) 3.3 (0.5-3.6) ng/ml Troponin I < 0.015 (0-0.045) ng/ml Liver Function 07/02/20 Range/Units 02:10 Total Bilirubin 1.1 H (0.2-1) mg/dl AST 54 H (15-37) U/L ALT 49 (12-78) U/L Alkaline Phosphatase 139 H (45-117) U/L Albumin 4.1 (3.4-5.0) gm/dl Urine 07/02/20 Range/Units 04:44 Urine Color Yellow Urine Appearance Clear (Clear) Urine pH 6.5 (4.5-7.5) Ur Specific [place] 1.010 (1.000-1.030) Urine Protein Negative (Negative) Urine Glucose (UA) Negative (Negative) Diagnostic Findings ABDOMEN AND PELVIS CT WITH IV CONTRAST CT DOSE: 339.03 mGycm HISTORY: Acute generalized abdominal pain with reflux abd discomfort TECHNIQUE: Multiaxial CT images of the abdomen and pelvis were performed following the IV administration of 93 cc of Optiray 320, A dose lowering technique was utilized adhering to the principles of ALARA. COMPARISON STUDY: CTA chest 02/02/2020, CT abdomen and pelvis 06/16/2018 FINDINGS: Mild intralobular septal thickening and bronchial wall thickening of the imaged lung bases. No pneumatosis or pneumoperitoneum. Cardiomegaly. Spleen, pancreas and adrenal glands are unremarkable. The gallbladder appears surgically absent. Heterogeneity of the liver with probable hepatic steatosis. Probable right-sided renal cysts measuring up to 8 mm. No obstructive uropathy. Moderate urinary bladder wall thickening with partial distention and perivesicular stranding. Hysterectomy. Moderate mixed plaque of the abdominal aorta without aneurysm. No adenopathy. Moderate distal esophageal wall thickening. No bowel obstruction or bowel wall thickening. Mild fecal retention. Appendix is not definitively seen. No secondary signs of acute appendicitis. Probable some mucosal lipoma involves a loop of bowel within the abdominal left lower quadrant, 9 mm. Mild generalized body wall edema. Bones appear intact. Demineralized appearance of the bones. Unchanged sclerosis of the right iliac bone suspicious for patchy 20 changes. No acute fracture. IMPRESSION: 1. No bowel obstruction or bowel wall thickening. 2. Unchanged moderate wall thickening of the distal esophagus. 3. Partial distention of the urinary bladder with wall thickening and tiffanie vesicular stranding. Correlate with urinalysis to exclude cystitis. 4. Cardiomegaly. 5. Additional findings as above. Medications Administered Current Inpatient Medications Acetaminophen (Acetaminophen 325 Mg Tab) 650 mg PO Q4H PRN PRN Reason: Pain or Fever Stop: 08/01/20 05:08 Apixaban (Apixaban 2.5 Mg Tab) 2.5 mg PO BID KAVIN Stop: 08/01/20 08:59 Last Admin: 07/02/20 09:53 Dose: 2.5 mg Documented by: Diltiazem HCl (Diltiazem Hcl 120 Mg Capcr) 120 mg PO DAILY KAVIN Stop: 08/01/20 05:44 Last Admin: 07/02/20 06:35 Dose: 120 mg Documented by: Famotidine (Famotidine 20 Mg Tab) 20 mg PO HS [facility] Stop: 08/01/20 20:59 Promethazine HCl 12.5 mg/ (Sodium Chloride) 50.5 mls @ 202 mls/hr IV Q6H PRN PRN Reason: Nausea And Vomiting Stop: 08/01/20 05:08 Lisinopril (Lisinopril 2.5 Mg Tab) 2.5 mg PO QAM KAVIN Stop: 08/01/20 08:59 Last Admin: 07/02/20 09:53 Dose: 2.5 mg Documented by: Methimazole (Methimazole 5 Mg Tablet) 5 mg PO Q48H KAVIN Stop: 08/01/20 08:59 Last Admin: 07/02/20 09:53 Dose: 5 mg Documented by: Metoprolol Tartrate (Metoprolol Tartrate 100 Mg Tab) 100 mg PO BID [facility] Stop: 08/01/20 20:59 Morphine Sulfate (Morphine Sulfate 2 Mg/Ml Carp) 2 mg IV Q4H PRN PRN Reason: Pain Stop: 07/16/20 05:08 Multivitamins (Multivitamin Tab) 1 tab PO DAILY KAVIN Stop: 08/01/20 08:59 Last Admin: 07/02/20 09:56 Dose: 1 tab Documented by: Nitroglycerin (Nitroglycerin Sl 0.4 Mg/Tab Tab) 0.4 mg SL UD PRN PRN Reason: Chest Pain Stop: 08/01/20 05:08 Pantoprazole Sodium (Pantoprazole 40 Mg Tab) 40 mg PO BID KAVIN Stop: 08/01/20 20:59 Tramadol HCl (Tramadol Hcl 50 Mg Tablet) 25 - 50 mg PO Q4H PRN PRN Reason: Pain Stop: 08/01/20 05:08
--- NOTE | 2020-07-02 15:07 | Discharge Summary ---
Date of Service July 02, 2020 Admission HPI Per Admitting Provider History obtained from patient and records. Medical history significant for chronic systolic heart failure (EF 40 to 45%, TTE 2019), A. fib on Eliquis, mitral regurgitation, hypertension, Graves' disease, GERD, IBS as per records. Last confinement January 2020 for new onset A. fib. Patient discharged on metoprolol and Eliquis. Patient metoprolol increased in dose by Cardiology provider from 50 mg to 100 mg BID due to patient heart rate of 90s at home. Outpatient TSH noted to be 24 last week. [employer] recommended stopping methimazole for 1 full week and to resume every other day dosing starting today. Last 3 days, patient noted abdominal discomfort described as fullness without nausea and emesis. Initial constipation followed by a normal bowel movement. Last night patient was watching television, when she noted palpitations without chest pain or S OB. Still with abdominal discomfort. No unusual weight gain. No unusual stress at home. Compliant with home medications. Patient worried that stopping methimazole for a week might have precipitated symptoms. Brought to the ER for evaluation. Patient not comfortable going home following ER provider evaluation and requesting to see training instructor inpatient. 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 Admission Exam Per Admitting Provider GENERAL: Comfortable, pleasant, slightly anxious, no respiratory distress SKIN: Normal color, warm HEENT: Bespectacled, Swe[place]er palpebral conjunctivae, no ptosis, dry buccal mucosa NECK : Supple, no tenderness CHEST : CTA, no tenderness HEART : Irregular, systolic murmur ABDOMEN: Some distention, no overt tenderness EXTREMITIES : No LE swelling/tenderness, no other conspicuous deformities noted NEUROLOGIC : Coherent, no facial asymmetry, no other gross focality Principal Diagnosis palpitations atrial fibrillation hyperthyroidism Discharge Exam CONSTITUTIONAL: thin, elderly, generally well-appearing EYES: normal conjunctivae, no scleral icterus ENT: external ear and nose normal, MMM RESPIRATORY: clear to auscultation bilaterally, no crackles, rales or wheezes, normal respiratory effort CARDIOVASCULAR: irregular rate and irregular rhythm, S1 and 2 heard without murmurs, gallops or rubs, no JVD, no peripheral edema GASTROINTESTINAL: soft, nontender, nondistended, no guarding MUSCULOSKELETAL: moves all extremities equally, head is normocephalic and atraumatic SKIN: warm and dry NEUROLOGIC: CN 2-12 grossly intact, normal cognition, no gross focal deficits. PSYCHIATRIC: alert cooperative and oriented to person, place and time. Discharge Data Allergies Allergy/AdvReac Type Severity Reaction Status Date / Time No Known Allergies Allergy Unverified 07/02/20 03:04 Consultations 07/02/20 02:59 ED Decision to Admit Stat 07/02/20 05:09 Consult Cardiology Routine Ordered Studies ABDOMEN AND PELVIS CT WITH IV CONTRAST HISTORY: Acute generalized abdominal pain with reflux abd discomfort TECHNIQUE: Multiaxial CT images of the abdomen and pelvis were performed following the IV administration of 93 cc of Optiray 320, A dose lowering technique was utilized adhering to the principles of ALARA. COMPARISON STUDY: CTA chest 02/02/2020, CT abdomen and pelvis 06/16/2018 FINDINGS: Mild intralobular septal thickening and bronchial wall thickening of the imaged lung bases. No pneumatosis or pneumoperitoneum. Cardiomegaly. Spleen, pancreas and adrenal glands are unremarkable. The gallbladder appears surgically absent. Heterogeneity of the liver with probable hepatic steatosis. Probable right-sided renal cysts measuring up to 8 mm. No obstructive uropathy. Moderate urinary bladder wall thickening with partial distention and perivesicular stranding. Hysterectomy. Moderate mixed plaque of the abdominal aorta without aneurysm. No adenopathy. Moderate distal esophageal wall thickening. No bowel obstruction or bowel wall thickening. Mild fecal retention. Appendix is not definitively seen. No secondary signs of acute appendicitis. Probable some mucosal lipoma involves a loop of bowel within the abdominal left lower quadrant, 9 mm. Mild generalized body wall edema. Bones appear intact. Demineralized appearance of the bones. U nchanged sclerosis of the right iliac bone suspicious for patchy 20 changes. No acute fracture. IMPRESSION: 1. No bowel obstruction or bowel wall thickening. 2. Unchanged moderate wall thickening of the distal esophagus. 3. Partial distention of the urinary bladder with wall thickening and perivesicular stranding. Correlate with urinalysis to exclude cystitis. 4. Cardiomegaly. 5. Additional findings as above. Electronically signed by: Tyrone Cochran M.D. 07/02/2020 8:08 AM Hospital Course (1) Palpitations: (2) Hyperthyroidism: (3) Atrial fibrillation: 89-year-old female presented with palpitations. Differential diagnosis included mild anxiety, abdominal discomfort possibly secondary to uncontrolled GERD. She does have atrial fibrillation that is rate controlled and is on Eliquis. She was admitted to the hospitalist service and placed on telemetry. Cardiology was consulted per patient request. Her PPI was increased to twice daily and her nighttime H2 brown was continued. This patient was well known to the training instructor on service. She has a known history of hyperthyroidism and is treated medically for this as well as persistent atrial fibrillation. All of her subjective symptoms resolved the following day including a transient mild upset stomach. Telemetry overnight revealed rate controlled atrial fibrillation in the range of 70 to 80 bpm which is been her baseline on current medications. The patient was offered reassurance. Again she had no subjective complaints at time of discharge and ongoing atrial fibrillation was noted. Although her initial proBNP screen was elevated she did not examine as volume overloaded and cardiology agreed with this. No further cardiac testing or medication adjustment was felt to be necessary. At time of discharge she was asymptomatic, hemodynamically stable and afebrile and tolerating p.o. She was mentating and ambulating at baseline and was sent home in stable condition with close primary care follow-up recommended. Total Time Total Time Spent Total Time Spent (In Minutes): 60 Total Time Includes: Examination of the Patient, Discharge Planning, Medication Reconciliation and Communication With Other Providers Discharge Plan Discharge Items Patient Disposition: Home - Self-Care Reason For Visit: PALPITATIONS Discharge Diagnosis: palpitations atrial fibrillation hyperthyroidism Condition on Discharge: Good Activity: Resume your previous activity Non-emergency contact: Primary Care Provider Call non-emergency contact if: you have any medication questions, your symptoms worsen, your pain is unusual for you and your pain is concerning for you Follow-up/Referrals: Nelly Lowe MD [Primary Care Provider] - 07/06/20 11:00 am (Date & Time 07/06/2020 11:00 AM Provider Nelly Lowe MD Department General Internal Medicine [facility] ) Diet: Heart Healthy Addtl Attending Provider Instructions: Please continue all medications as instructed on discharge list below. Please follow up with Dr. Lowe as above to help determine and prevent future episodes of palpitations. Please consider following up with your facility assistant, Dr. Kirk Abdullahi, for more questions regarding your thyroid management. It was a pleasure taking care of you! Please call if you have any questions or problems. You can reach a [facility] hospitalist on duty at [facility] 24 hours a day by calling [phone]. Take care of yourself. Eva Cook DO [facility] Hospitalist Pending Studies at Discharge: No Stand-Alone Forms: [facility] Medications and DC Order Prescriptions: Continued methimazole 5 mg tablet 5 mg PO .QOD 90 Days Qty: 45 RF: 3 cholecalciferol (vitamin D3) 125 mcg (5,000 unit) capsule 5,000 units PO DAILY RF: 0 potassium chloride 20 mEq tablet extended release 20 meq PO DAILY RF: 0 diltiazem HCl 120 mg capsule,extended release 24hr 120 mg PO DAILY RF: 0 famotidine 20 mg tablet 20 mg PO HS RF: 0 multivitamin Tablet 1 tab PO DAILY RF: 0 pantoprazole 40 mg tablet,delayed release (DR/EC) 40 mg PO DAILY RF: 0 Eliquis 2.5 mg Tablet 2.5 mg PO BID 30 Days Qty: 60 RF: 1 metoprolol tartrate 100 mg tablet 100 mg PO BID RF: 0 lisinopril 2.5 mg tablet 2.5 mg PO QAM RF: 0 furosemide 20 mg tablet 20 mg PO UD RF: 0 Discharge Orders: Discharge Order (Routine); Ordered 07/02/20 Ordered By: Eva Cook Admission Data Admit Date/Time: 07/02/20 03:48 Attending Provider: Eva Cook Admit Provider: Kip Jordan Primary Care Provider: Nelly Lowe Other Providers: Kip Jordan ; Goyo French ; Frank Serrano ; Harley Rendon ; Jermaine Gomez ; Sathya La ; Jesús Anand ; Marie Rangel ; Geeta Trivedi ; Benjamin Vazquez Other Interventions: Discharge Summary Assessment (RN) Last Done: 07/02/20 16:29
--- NOTE | 2020-07-02 15:47 | Cardiology Consultation ---
Date of Consultation July 02, 2020 Assessment & Plan (1) Atrial fibrillation: The patient was offered reassurance. She has no subjective complaints at present. Ongoing atrial fibrillation is noted. Although proBNP screen was elevated, I do not think she is volume overloaded. She is on an appropriate Eliquis dose of 2.5 mg twice daily given her age over 82 years old, and weight of 58 kg. No further cardiac testing or medication adjustment is felt to be necessary at this time. History of Present Illness Attending Physician: Eva Cook DO History of Present Illness Denisse Cho is an 9-year-old female seen in cardiology consultation per the request of Dr. Jordan for the evaluation of palpitations. The patient is well- known to the undersigned. She has a history of hyperthyroidism, treated medically, as well as persistent atrial fibrillation. She felt that yesterday she had palpitations. She also had mild transient upset stomach. Her subjective symptoms have since resolved. Telemetry reveals rate controlled atrial fibrillation in the range of 7080 bpm which is been her recent baseline on her current medications. Allergies Allergy/AdvReac Type Severity Reaction Status Date / Time No Known Allergies Allergy Unverified 07/02/20 03:04 Home Medications Home Medications Medication Instructions Recorded Confirmed Type cholecalciferol (vitamin D3) 125 5,000 units PO DAILY 12/28/19 07/02/20 History mcg (5,000 unit) capsule famotidine 20 mg PO HS 02/02/20 07/02/20 History multivitamin 1 tab PO DAILY 02/02/20 07/02/20 History pantoprazole 40 mg PO DAILY 02/02/20 07/02/20 History apixaban [Eliquis] 2.5 mg PO BID 30 Days #60 tab 02/10/20 07/02/20 Rx potassium chloride 20 mEq 20 meq PO DAILY 02/25/20 07/02/20 History tablet,extended release diltiazem HCl 120 mg 120 mg PO DAILY 03/30/20 07/02/20 History capsule,extended release 24 hr methimazole 5 mg tablet 5 mg PO .QOD 90 Days #45 tab 06/25/20 07/02/20 Rx furosemide 20 mg PO UD 07/02/20 07/02/20 History lisinopril 2.5 mg PO QAM 07/02/20 07/02/20 History metoprolol tartrate 100 mg PO BID 07/02/20 07/02/20 History Patient History Medical History Allergic rhinitis Conductive hearing loss Family history non-contributory GERD (gastroesophageal reflux disease) Hemorrhoids History of basal cell carcinoma (BCC) of skin HTN (hypertension) Irritable bowel Multiple thyroid nodules Post-menopausal atrophic vaginitis Seborrheic keratoses Skin cancer Thyroid dysfunction Surgical History H/O: hysterectomy total with BSO History of cataract surgery History of cystoscopy Hx of cholecystectomy Family History Other No significant family history Social History Smoking Status: Never smoker Hx Alcohol Use: Yes Alcohol type: wine Hx Substance Use: No Preferred Language: Icelandic Communication Ability: Effective Hearing Ability: Hard of Hearing Steam Drier Tender Required: No Beliefs That Will Affect Care: None marital status: / Current Living Situation: Alone Feels Safe at Home: Yes Safety Concerns: Feels Safe At This Time Physical Exam Physical Exam: Temp Pulse Resp BP Pulse Ox 36.5 C 98 H 16 132/69 95 07/02/20 12:10 07/02/20 12:10 07/02/20 12:10 07/02/20 12:10 07/02/20 12:10 Constitutional: + thin Respiratory: normal respiratory effort, lungs clear to auscultation Cardiovascular: Rate/Rhythm: + irregularly irregular Heart Sounds: no murmur Vessels: no JVD Extremities: no edema Gastrointestinal (Abdomen): normal bowel sounds, soft, nontender, no hepatosplenomegaly Neurologic: PERRL, EOMI, accommodation nl, no face palsy, no dysarthria Results & Data ([facility]) Vital Signs (Past 12 Hours) Vital Signs Temp Pulse Pulse Resp BP BP Pulse Ox 07/02/20 12:10 36.5 C 98 H 16 132/69 95 07/02/20 08:05 36.9 C 99 H 16 129/61 99 07/02/20 05:09 36.7 C 93 H 16 132/94 96 07/02/20 04:00 76 18 128/90 94 Laboratory Results Cardiac Enzymes 07/02/20 Range/Units 02:10 AST 54 H (15-37) U/L CK-MB (CK-2) 3.3 (0.5-3.6) ng/ml Troponin I < 0.015 (0-0.045) ng/ml Coagulation 07/02/20 Range/Units 02:10 PT 11.8 (9.0-12.0) Seconds APTT 28.0 (21.0-31.0) Seconds CBC 07/02/20 Range/Units 02:10 WBC 7.47 (4.8-10.8) K/uL RBC 4.67 (4.2-5.4) M/uL Hgb 14.2 (12.0-16.0) g/dL Hct 42.6 (37-47) % Plt Count 192 (130-400) K/uL Neut # (Auto) 3.62 (1.4-6.5) K/uL Lymph # (Auto) 3.00 (1.2-3.4) K/uL [place] # (Auto) 0.56 (0.11-0.59) K/uL Eos # (Auto) 0.26 (0-0.5) K/uL Baso # (Auto) 0.02 (0-0.2) K/uL Comprehensive Metabolic Panel 07/02/20 Range/Units 02:10 Sodium 135 L (136-145) mmol/L Potassium 4.4 (3.5-5.1) mmol/L Chloride 101 (98-107) mmol/L Carbon Dioxide 27 (21-32) mmol/L BUN 12 (7-18) mg/dl Creatinine 0.91 (0.6-1.2) mg/dl Glucose 130 H (70-99) mg/dl Calcium 9.2 (8.5-10.1) mg/dl AST 54 H (15-37) U/L ALT 49 (12-78) U/L Alkaline Phosphatase 139 H (45-117) U/L Total Protein 8.0 (6.4-8.2) gm/dl Albumin 4.1 (3.4-5.0) gm/dl Intake and Output 07/02/20 07/02/20 07/02/20 06:59 14:59 22:59 Intake Total 400 / 400 325 / 325 Balance 400 / 400 325 / 325 Intake: IV 400 / 400 50 / 50 Albumin 25% 50 ml @ 50 mls/hr 50 / 50 IV ONE ONE Rx#:[id number] MAGNESIUM SULFATE / D5W 1 gm In 400 / 400 100 ml @ 200 mls/hr IV Q30M [facility] Rx#:[id number] Oral 275 / 275 Other: # Unmeasured Voids 1 Weight 58.4 kg
[2020-07-02] MEDS ORDERED: METOPROLOL TARTRATE 100 MG TAB PO SCH (21:00)
[2020-07-02] MEDS ORDERED: FAMOTIDINE 20 MG TAB PO SCH (21:00)
== END 2020-07-02 17:00 | disposition home or self-care (01) ==
LOC: 2S 01:45 → ED 01:45 → 2S 04:33